=== PATIENT | female | born 1980 | race American Indian/Alaskan Native ===

== ENCOUNTER 2017-04-26 23:14 | Inpatient (IN) | payer OTHER ==
[2017-04-27] MEDS ORDERED: ASPIRIN PO ONE (00:19)
[2017-04-27 01:05] LABS: Basophils % (Auto) 0.3 % (0.0-1.8); Eosinophils # (Auto) 0.2 K/mm3 (0.0-0.4); Eosinophils % (Auto) 1.3 % (0.0-4.3); Hematocrit 32.8 % (30.3-42.9); Hemoglobin 10.4 gm/dl (10.1-14.3); Lymphocytes % (Auto) 7.8 % (13.4-35.0); Mean Corpuscular HGB Conc 32 % (30-34); Mean Corpuscular Volume 80 fl (79-97); Monocytes # (Auto) 0.7 K/mm3 (0.0-0.8); Monocytes % (Auto) 5.5 % (0.0-7.3); Platelet Count 618 K/mm3 (140-440); Red Blood Count 4.11 M/mm3 (3.65-5.03); Red Cell Distribution Width 17.3 % (13.2-15.2)
[2017-04-27 01:06] LABS: Mean Corpuscular Hemoglobin 25 pg (28-32)
[2017-04-27 01:43] LABS: BUN/Creatinine Ratio 11; Blood Urea Nitrogen 22 mg/dL (7-17); Calcium 9.2 mg/dL (8.4-10.2); Hemolysis Index 39
[2017-04-27] MEDS ORDERED: D50W (25GM) Syringe IV PRN (08:28)
--- NOTE | 2017-04-27 08:38 | Emergency Department Report ---
HPI - General Chief Complaint: Chest Pain Time Seen by Provider: 04/27/17 08:16 - HPI HPI: Room 8 The patient is a 36-year-old female presenting with a chief complaint of chest pain and right lower extremity swelling. The patient states last week she noticed pain and swelling in her right lower extremity. The patient states she has swelling with her "neuropathy" intermittently. The patient states for the past 4 days she has had sharp sticking pain in the anterior chest associated with pleurisy. The patient does admit to shortness of breath, nausea/vomiting and diaphoresis with her chest pain. The patient drove 4 hours from [facility] to [place] approximately 3 weeks ago. The patient states she had a stress test several years ago but has never had a cardiac catheterization Location: Chest, right lower extremity Duration: [See above] Quality: Sharp, sticking Severity: Moderate Modifying factors: [see above] Context: [see above] Mode of transportation: Unknown ED Past Medical Hx - Past Medical History Hx Hypertension: Yes Hx Diabetes: Yes Hx Psychiatric Treatment: Yes (Anxiety) Additional medical history: Neuropathy - Surgical History Hx Appendectomy: Yes Additional Surgical History: Abdominal Surgery, Left Eye Surgery - Family History Family history: no significant - Social History Smoking Status: Never Smoker Substance Use Type: None (denies illicit drug use) - Medications Home Medications: Home Medications Medication Instructions Recorded Confirmed Last Taken Type Chlorthalidone 25 mg PO DAILY 04/27/17 04/27/17 Unknown History Cyclobenzaprine 10 mg PO TID 04/27/17 04/27/17 Unknown History HCTZ 12.5 mg PO DAILY 04/27/17 04/27/17 Unknown History Lantus 40 units SQ HS 04/27/17 04/27/17 Unknown History Sodium Bicarbonate 650 mg PO TID 04/27/17 04/27/17 Unknown History ED Review of Systems ROS: Stated complaint: CHEST PAIN,RIGHT LEG PAIN Other details as noted in HPI Constitutional: diaphoresis Respiratory: shortness of breath, other (pleurisy) Cardiovascular: chest pain Gastrointestinal: nausea, vomiting Skin: denies: rash, lesions Physical Exam - Physical Exam Vital Signs: Vital Signs 04/26/17 04/27/17 23:59 00:12 Temperature 99.1 F 99.1 F Pulse Rate 119 H 119 H Respiratory 18 20 Rate Blood Pressure 163/100 167/100 O2 Sat by Pulse 100 99 Oximetry Physical Exam: GENERAL: The patient is well-developed well-nourished female lying on stretcher not appearing to be in acute distress. [] HEENT: Normocephalic. Atraumatic. Extraocular motions are intact. Patient has moist mucous membranes. NECK: Supple. Trachea midline CHEST/LUNGS: Clear to auscultation. There is no respiratory distress noted. HEART/CARDIOVASCULAR: Regular. There is no tachycardia. There is no gallop rub or murmur. ABDOMEN: Abdomen is soft, nontender. Patient has normal bowel sounds. There is no abdominal distention. SKIN: There is a skin fissure to the lateral right heel. No evidence of erythema or discharge. There is no diaphoresis. NEURO: The patient is awake, alert, and oriented. The patient is cooperative. The patient has normal speech and gait. MUSCULOSKELETAL: There is no evidence of acute injury. ED Course Vital Signs 04/26/17 04/27/17 23:59 00:12 Temperature 99.1 F 99.1 F Pulse Rate 119 H 119 H Respiratory 18 20 Rate Blood Pressure 163/100 167/100 O2 Sat by Pulse 100 99 Oximetry ED Medical Decision Making - Lab Data Result diagrams: 04/27/17 00:43 04/27/17 10:45 Laboratory Tests 04/27/17 04/27/17 04/27/17 00:43 00:43 00:43 WBC 13.3 H RBC 4.11 Hgb 10.4 Hct 32.8 MCV 80 MCH 25 L MCHC 32 RDW 17.3 H Plt Count 618 H Lymph % (Auto) 7.8 L [place] % (Auto) 5.5 Eos % (Auto) 1.3 Baso % (Auto) 0.3 Lymph # 1.0 L Lamb # 0.7 Eos # 0.2 Baso # 0.0 Seg Neutrophils % 85.1 H Seg Neutrophils # 11.3 H VBG pH Sodium 130 L Potassium 4.2 Chloride 93.3 L Carbon Dioxide 17 L Anion Gap 24 BUN 22 H Creatinine 2.0 H Estimated GFR 28 BUN/Creatinine Ratio 11 Glucose 419 H Calcium 9.2 Troponin T < 0.010 HCG, Qual Negative 04/27/17 00:43 WBC RBC Hgb Hct MCV MCH MCHC RDW Plt Count Lymph % (Auto) [place] % (Auto) Eos % (Auto) Baso % (Auto) Lymph # Lamb # Eos # Baso # Seg Neutrophils % Seg Neutrophils # VBG pH 7.292 L Sodium Potassium Chloride Carbon Dioxide Anion Gap BUN Creatinine Estimated GFR BUN/Creatinine Ratio Glucose Calcium Troponin T HCG, Qual - EKG Data -: EKG Interpreted by Me EKG shows normal: sinus rhythm Rate: tachycardia (123 bpm) - EKG Data When compared to previous EKG there are: previous EKG unavailable Interpretation: other (no ischemic changes seen) - Radiology Data Radiology results: report reviewed (right lower extremity Doppler, VQ scan), image reviewed (chest x-ray, VQ scan) interpreted by me: chest x-ray-no focal infiltrates, no pneumothorax JAVY MARTINI [facility] 1980 [id number] 04/27/17 09:09 - Radiology Dept. [facility]: [id number] : 1980 Patient Age: 36 RLE VENOUS DUPLEX COMPLETED. VAS LAB PRELIMINARY REPORT; NO EVIDENCE OF DVT/SVT NOTED IN VESSELS/SEGMENTS EXAMINED. PHYSICIANS REPORT TO FOLLOW...(RSK) Initialized on 04/27/17 09:09 - END OF NOTE VENTILATION/PERFUSION LUNG SCAN: 04/27/17 CLINICAL: Chest pain and shortness of breath. TECHNIQUE: 15.0 mCi of xenon-133 was administered by aerosol and 5.0 mCi of technetium 99m MAA was administered intravenously. Comparison is made to a same day chest x-ray. FINDINGS: Inhalation of Xenon gas demonstrates a normal distribution of the activity throughout both lungs. The wash out phases show no significant retention of activity. After injection of Technetium 99m macroaggregated albumin gamma camera imaging of the lungs in multiple projections demonstrates normal pulmonary contours with a relatively homogeneous distribution of activity. No suspicious focal areas of perfusion deficiency are identified. IMPRESSION: Low probability for pulmonary embolus. Transcribed By: REF Dictated By: TWIN KABA MD Electronically Authenticated By: TWIN KABA MD Signed Date/Time: 04/27/171308 DD/ 08 TD/TT: 04/27/171308 - Differential Diagnosis ACS, PE, DVT, DKA Critical care attestation.: If time is entered above; I have spent that time in minutes in the direct care of this critically ill patient, excluding procedure time. ED Disposition Clinical Impression: Chest pain, DKA (diabetic ketoacidoses), Renal insufficiency Disposition: 09 OP ADMIT IP TO THIS HOSP Is pt being admited?: Yes Does the pt Need Aspirin: No (renal sufficiency) Condition: Stable Instructions: Chest Pain (ED), Diabetic Ketoacidosis (ED) Referrals: PRIMARY CARE,MD [Primary Care Provider] - 3-5 Days Time of Disposition: 13:31 (Hospitalist notified (Dr Colon))
[2017-04-27] MEDS ORDERED: ZOFRAN IV ONE (08:39)
[2017-04-27] MEDS ORDERED: MORPHINE IV ONE (08:39)
[2017-04-27] MEDS ORDERED: NITRO-BID 2% TP ONE (08:39)
[2017-04-27] MEDS ORDERED: PLAVIX PO ONE (08:39)
[2017-04-27] MEDS ORDERED: NovoLIN R 100 UNITS in NACL 0.9% 99 ML IV SCH (09:00)
--- NOTE | 2017-04-27 09:30 | XRay Report ---
AP CHEST: HISTORY: chest pain AP view of the chest demonstrates a normal mediastinal and cardiac contour with clear lungs and normal bony and soft tissue structures. IMPRESSION: Unremarkable AP chest.
[2017-04-27] MEDS ORDERED: ATIVAN IV PRN (11:05)
[2017-04-27 11:39] LABS: Calcium 9.3 mg/dL (8.4-10.2)
[2017-04-27 12:50] LABS: Bacteria,Urine 1+ /HPF (Negative); Mucus,Urine FEW /HPF
[2017-04-27] MEDS ORDERED: D5W/0.45% NACL/KCL 20 MEQ 20 MEQ/1,000 ML BAG IV ONE (13:10)
[2017-04-27 13:15] LABS: Bilirubin,Urine NEG (Negative); Blood,Urine LG (Negative); Color,Urine Yellow (Yellow); Urobilinogen,Urine < 2.0 mg/dL (<2.0)
--- NOTE | 2017-04-27 13:19 | Nuclear Medicine Report ---
VENTILATION/PERFUSION LUNG SCAN: 04/27/17 CLINICAL: Chest pain and shortness of breath. TECHNIQUE: 15.0 mCi of xenon-133 was administered by aerosol and 5.0 mCi of technetium 99m MAA was administered intravenously. Comparison is made to a same day chest x-ray. FINDINGS: Inhalation of Xenon gas demonstrates a normal distribution of the activity throughout both lungs. The wash out phases show no significant retention of activity. After injection of Technetium 99m macroaggregated albumin gamma camera imaging of the lungs in multiple projections demonstrates normal pulmonary contours with a relatively homogeneous distribution of activity. No suspicious focal areas of perfusion deficiency are identified. IMPRESSION: Low probability for pulmonary embolus.
[2017-04-27 14:45] LABS: Calcium 9.2 mg/dL (8.4-10.2)
[2017-04-27] MEDS ORDERED: ZOFRAN ONE (16:42)
[2017-04-27 16:53] LABS: Calcium 9.3 mg/dL (8.4-10.2)
[2017-04-27] MEDS ORDERED: ZOFRAN IM ONE (19:01)
[2017-04-27] MEDS ORDERED: CYCLOBENZAPRINE 10 MG PO SCH (20:00)
[2017-04-27] MEDS: FLEXERIL PO SCH (21:49)
[2017-04-28 01:14] LABS: Calcium 8.9 mg/dL (8.4-10.2)
--- NOTE | 2017-04-28 06:45 | History and Physical Report ---
History of Present Illness Date of admission: 04/27/17 17:26 Chief complaint: I just feel sick History of present illness: 36 YO Female with DM, HTN, Anxiety, Neuropathy presents to ED for evaluation. Pt states that she has felt sick for the past 3 days with persistent symptoms during the same time frame. Pt acknowledges noncompliance with her medication. Pt acknowledges polydipsia, polyuria, nausea, vomiting, chest discomfort associated with deep breathing as well as lower extremity swelling and feeling anxious. Pt denies fever, chills, palpitations, Syncope, trauma, recent ill contacts, productive cough, recent ill contacts. Pt seen and evaluated in ED and found to have DKA complicated by Acute renal failure. Pt admitted to ICU and initiated on DKA protocol. Past History Past Medical History: diabetes, hypertension Past Surgical History: bowel surgery Social history: single. denies: smoking, alcohol abuse, prescription drug abuse Family history: hypertension Medications and Allergies Allergies Allergy/AdvReac Type Severity Reaction Status Date / Time lisinopril Allergy Swelling Verified 04/27/17 00:18 Penicillins Allergy Swelling Verified 04/27/17 00:18 Home Medications Medication Instructions Recorded Confirmed Last Taken Type Chlorthalidone 25 mg PO DAILY 04/27/17 04/27/17 Unknown History Cyclobenzaprine 10 mg PO TID 04/27/17 04/27/17 Unknown History HCTZ 12.5 mg PO DAILY 04/27/17 04/27/17 Unknown History Lantus 40 units SQ HS 04/27/17 04/27/17 Unknown History Sodium Bicarbonate 650 mg PO TID 04/27/17 04/27/17 Unknown History Active Meds: Active Medications Chlorthalidone (Thalitone) 25 mg PO QDAY [facility] Cyclobenzaprine HCl (Flexeril) 10 mg PO TID [facility] Last Admin: 04/27/17 21:49 Dose: 10 mg Dextrose (D50w (25gm) Syringe) 0 ml IV ONCE PRN PRN Reason: Hypoglycemia Last Admin: 04/27/17 22:23 Dose: 20 ml Hydrochlorothiazide (Hctz) 12.5 mg PO QDAY [facility] Insulin Human Regular 100 (units/ Sodium Chloride) 100 mls @ 7 mls/hr IV TITR [facility]; Protocol Last Titration: 04/28/17 06:23 Dose: 0 units/hr, 0 mls/hr Lorazepam (Ativan) 1 mg IV ONCE PRN PRN Reason: Anxiety Last Admin: 04/27/17 11:20 Dose: 1 mg Review of Systems Constitutional: no weight loss, no weight gain, no fever, no chills Ears, nose, mouth and throat: no ear pain, no ear discharge, no tinnitis, no decreased hearing, no nose pain, no nasal congestion Breasts: no change in shape, no swelling, no mass Cardiovascular: no chest pain, no orthopnea, no palpitations Respiratory: no cough, no cough with sputum, no excessive sputum, no hemoptysis , no shortness of breath Gastrointestinal: nausea, no vomiting, no constipation Genitourinary Female: no pelvic pain, no flank pain, no menorrhagia, no dysuria Rectal: no pain, no incontinence, no bleeding Musculoskeletal: no neck stiffness, no neck pain, no shooting arm pain, no arm numbness/tingling, no low back pain, no shooting leg pain Integumentary: no rash, no pruritis, no redness, no sores, no wounds, no jaundice Neurological: no transient paralysis, no paralysis, no weakness, no numbness, no tingling, no seizures, no syncope, no tremors Psychiatric: anxiety, no memory loss, no change in sleep habits, no sleep disturbances, no insomnia, no hypersomnia Endocrine: polyphagia, polydipsia, polyuria, nocturia, no cold intolerance, no heat intolerance Hematologic/Lymphatic: no easy bruising, no easy bleeding, no lymphadenopathy, no lymphedema Allergic/Immunologic: no urticaria, no allergic rhinitis, no wheezing, no anaphylaxis, no angioedema Exam - Constitutional Vitals: Temp Pulse Resp BP Pulse Ox 98 F 98 H 10 L 155/101 100 04/28/17 03:55 04/28/17 05:46 04/28/17 05:46 04/28/17 05:46 04/28/17 05:46 General appearance: Present: mild distress - EENT Eyes: Present: PERRL ENT: hearing intact, clear oral mucosa - Neck Neck: Present: supple, normal ROM - Respiratory Respiratory effort: normal Respiratory: bilateral: CTA - Cardiovascular Heart Sounds: Present: S1 & S2. Absent: rub, click - Extremities Extremities: pulses symmetrical, No edema Peripheral Pulses: within normal limits - Abdominal General gastrointestinal: Present: soft, non-tender, non-distended, normal bowel sounds Female genitourinary: Present: normal - Integumentary Integumentary: Present: clear, dry, clammy, decreased turgor - Musculoskeletal Musculoskeletal: gait normal, strength equal bilaterally - Psychiatric Psychiatric: intact judgment & insight, agitated - Neurologic Neurologic: CNII-XII intact, moves all extremities Results - Labs CBC & Chem 7: 04/27/17 00:43 04/28/17 00:33 Labs: Abnormal lab results 04/27/17 04/27/17 04/27/17 Range/Units 00:33 10:45 10:53 Sodium 131 L (137-145) mmol/L Chloride 91.1 L (98-107) mmol/L Carbon Dioxide 20 L (22-30) mmol/L BUN 23 H (7-17) mg/dL Creatinine 2.0 H (0.7-1.2) mg/dL Glucose 359 H (65-100) mg/dL POC Glucose 417 H 397 H (70-105) 04/27/17 04/27/17 04/27/17 Range/Units 12:00 13:05 14:05 Sodium (137-145) mmol/L Chloride (98-107) mmol/L Carbon Dioxide (22-30) mmol/L BUN (7-17) mg/dL Creatinine (0.7-1.2) mg/dL Glucose (65-100) mg/dL POC Glucose 291 H 253 H 201 H (70-105) 04/27/17 04/27/17 04/27/17 Range/Units 14:19 15:28 16:27 Sodium 133 L 132 L (137-145) mmol/L Chloride 94.0 L 95.3 L (98-107) mmol/L Carbon Dioxide 19 L 17 L (22-30) mmol/L BUN 24 H 24 H (7-17) mg/dL Creatinine 2.1 H 2.0 H (0.7-1.2) mg/dL Glucose 194 H 168 H (65-100) mg/dL POC Glucose 124 H (70-105) 04/27/17 04/27/17 04/27/17 Range/Units 17:17 18:38 22:13 Sodium (137-145) mmol/L Chloride (98-107) mmol/L Carbon Dioxide (22-30) mmol/L BUN (7-17) mg/dL Creatinine (0.7-1.2) mg/dL Glucose (65-100) mg/dL POC Glucose 163 H 151 H 53 L (70-105) 04/27/17 04/28/17 04/28/17 Range/Units 23:09 00:33 01:27 Sodium 133 L (137-145) mmol/L Chloride 95.5 L (98-107) mmol/L Carbon Dioxide 20 L (22-30) mmol/L BUN 23 H (7-17) mg/dL Creatinine 1.9 H (0.7-1.2) mg/dL Glucose 136 H (65-100) mg/dL POC Glucose 143 H 145 H (70-105) 04/28/17 Range/Units 03:05 Sodium (137-145) mmol/L Chloride (98-107) mmol/L Carbon Dioxide (22-30) mmol/L BUN (7-17) mg/dL Creatinine (0.7-1.2) mg/dL Glucose (65-100) mg/dL POC Glucose 115 H (70-105) Assessment and Plan - Patient Problems (1) DKA (diabetic ketoacidoses) Current Visit: Yes Status: Acute Qualifiers: Diabetes mellitus type: type 1 Plan to address problem: DKa Protocol: Insulin drip, serial bmp, monitor anion gap, IVF resuscitation therapy, monitor uop q shift, monitor serum potassium levels The high probability of a clinically significant, sudden or life threatening deterioration of the [endocrine, renal, neuro] system(s) required my full and direct attention, intervention and personal management. The aggregate critical care time was [65] minutes. This time is in addition to time spent performing reported procedures but includes the following: [x] Data Review and interpretation [x] Patient assessment and monitoring of vital signs [x] Documentation [x] Medication orders and management (2) ARF (acute renal failure) Current Visit: Yes Status: Acute Qualifiers: Acute renal failure type: with acute tubular necrosis Qualified Code(s): N17.0 - Acute kidney failure with tubular necrosis Plan to address problem: IVF resuscitation therapy, monitor uop q shift, serial creatnine levels. (3) Metabolic acidosis Current Visit: Yes Status: Acute Plan to address problem: IVF resuscitation, serial bmp, treat dka (4) DVT prophylaxis Current Visit: Yes Status: Acute
[2017-04-28] MEDS ORDERED: D5W/0.45% NACL/KCL 20 MEQ 20 MEQ/1,000 ML BAG IV SCH (07:00)
[2017-04-28] MEDS ORDERED: APRESOLINE IV PRN (07:54)
[2017-04-28] MEDS: FLEXERIL PO SCH ×3 (08:30→22:49)
[2017-04-28] MEDS: NORVASC PO SCH (09:30)
[2017-04-28] MEDS ORDERED: HCTZ 12.5 MG PO SCH (10:00)
[2017-04-28] MEDS ORDERED: CHLORTHALIDONE 25 MG PO SCH (10:00)
[2017-04-28] MEDS ORDERED: THALITONE PO SCH (10:00)
[2017-04-28] MEDS ORDERED: HCTZ PO SCH (10:00)
[2017-04-28] MEDS ORDERED: D50W (25GM) Syringe IV PRN (10:28)
[2017-04-28] MEDS ORDERED: NACL 0.45% 1000 ML 1,000 ML IV ONE (11:20)
[2017-04-28] MEDS: NOVOLOG SUB-Q SCH ×3 (11:49→22:50)
[2017-04-28] MEDS ORDERED: NACL 0.45% 1000 ML 1,000 ML IV SCH (12:00)
--- NOTE | 2017-04-28 17:11 | Progress Note ---
Assessment and Plan Assessment and plan: DKA - Patient was managed according to DK protocol and currently DKA resolved. Diabetes mellitus with hyperglycemia - Sliding scale insulin, continue home dose of insulin HARIKA - Patient is on IV fluid DVT prophylaxis - Heparin Disposition - Positive discharge tomorrow. History Interval history: Patient was seen and evaluated this morning, patient's abdominal pain and chest pain subsided. Patient didn't have any difficulty of breathing. Hospitalist Physical - Physical exam Narrative exam: Not in cardiopulmonary distress. The patient appeared well nourished and normally developed. BMI 66.7 is wrong Vital signs as documented. Head exam is unremarkable. No scleral icterus . Neck is without jugular venous distension, thyromegaly, or carotid bruits. Lungs are clear to auscultation. Cardiac exam reveals regular rate and Rhythm. First and second heart sounds normal. No murmurs, rubs or gallops. Abdominal exam reveals normal bowel sounds, no masses, no organomegaly and no aortic enlargement. Extremities are nonedematous and both femoral and pedal pulses are normal. 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 No focal weakness. - Constitutional Vitals: Temp Pulse Resp BP Pulse Ox 99.3 F 118 H 16 115/74 99 04/28/17 14:52 04/28/17 14:52 04/28/17 14:52 04/28/17 14:52 04/28/17 14:52 General appearance: Present: mild distress Results - Labs CBC & Chem 7: 04/27/17 00:43 04/28/17 09:17 Labs: Laboratory Last Values WBC 13.3 K/mm3 (4.5-11.0) H 04/27/17 00:43 RBC 4.11 M/mm3 (3.65-5.03) 04/27/17 00:43 Hgb 10.4 gm/dl (10.1-14.3) 04/27/17 00:43 Hct 32.8 % (30.3-42.9) 04/27/17 00:43 MCV 80 fl (79-97) 04/27/17 00:43 MCH 25 pg (28-32) L 04/27/17 00:43 MCHC 32 % (30-34) 04/27/17 00:43 RDW 17.3 % (13.2-15.2) H 04/27/17 00:43 Plt Count 618 K/mm3 (140-440) H 04/27/17 00:43 Lymph % (Auto) 7.8 % (13.4-35.0) L 04/27/17 00:43 [place] % (Auto) 5.5 % (0.0-7.3) 04/27/17 00:43 Eos % (Auto) 1.3 % (0.0-4.3) 04/27/17 00:43 Baso % (Auto) 0.3 % (0.0-1.8) 04/27/17 00:43 Lymph # 1.0 K/mm3 (1.2-5.4) L 04/27/17 00:43 [place] # 0.7 K/mm3 (0.0-0.8) 04/27/17 00:43 Eos # 0.2 K/mm3 (0.0-0.4) 04/27/17 00:43 Baso # 0.0 K/mm3 (0.0-0.1) 04/27/17 00:43 Seg Neutrophils % 85.1 % (40.0-70.0) H 04/27/17 00:43 Seg Neutrophils # 11.3 K/mm3 (1.8-7.7) H 04/27/17 00:43 D-Dimer 971.67 ng/mlDDU (0-234) H 04/28/17 07:25 VBG pH 7.292 (7.320-7.420) L 04/27/17 00:43 Sodium 135 mmol/L (137-145) L 04/28/17 09:17 Potassium 3.7 mmol/L (3.6-5.0) 04/28/17 09:17 Chloride 98.6 mmol/L (98-107) 04/28/17 09:17 Carbon Dioxide 19 mmol/L (22-30) L 04/28/17 09:17 Anion Gap 21 mmol/L 04/28/17 09:17 BUN 21 mg/dL (7-17) H 04/28/17 09:17 Creatinine 1.9 mg/dL (0.7-1.2) H 04/28/17 09:17 Estimated GFR 36 ml/min 04/28/17 09:17 BUN/Creatinine Ratio 11 % 04/28/17 09:17 Glucose 119 mg/dL (65-100) H 04/28/17 09:17 POC Glucose 137 (70-105) H 04/28/17 11:51 Calcium 9.0 mg/dL (8.4-10.2) 04/28/17 09:17 Phosphorus 4.10 mg/dL (2.5-4.5) 04/27/17 10:45 Magnesium 1.90 mg/dL (1.7-2.3) 04/27/17 10:45 Troponin T 0.012 ng/mL (0.00-0.029) 04/27/17 10:45 HCG, Qual Negative (Negative) 04/27/17 00:43 Urine Color Yellow (Yellow) 04/27/17 11:44 Urine Turbidity Clear (Clear) 04/27/17 11:44 Urine pH 5.0 (5.0-7.0) 04/27/17 11:44 Ur Specific [place] 1.016 (1.003-1.030) 04/27/17 11:44 Urine Protein 100 mg/dl mg/dL (Negative) 04/27/17 11:44 Urine Glucose (UA) >=500 mg/dL (Negative) 04/27/17 11:44 Urine Ketones Neg mg/dL (Negative) 04/27/17 11:44 Urine Blood Lg (Negative) 04/27/17 11:44 Urine Nitrite Neg (Negative) 04/27/17 11:44 Ur Reducing Substances Not Reportable 04/27/17 11:44 Urine Bilirubin Neg (Negative) 04/27/17 11:44 Urine Ictotest Not Reportable 04/27/17 11:44 Urine Urobilinogen < 2.0 mg/dL (<2.0) 04/27/17 11:44 Ur Leukocyte Esterase Neg (Negative) 04/27/17 11:44 Urine WBC (Auto) 2.0 /HPF (0.0-6.0) 04/27/17 11:44 Urine RBC (Auto) 3.0 /HPF (0.0-6.0) 04/27/17 11:44 U Epithel Cells (Auto) 2.0 /HPF (0-13.0) 04/27/17 11:44 Urine Bacteria (Auto) 1+ /HPF (Negative) 04/27/17 11:44 Urine Mucus Few /HPF 04/27/17 11:44
[2017-04-28] MEDS ORDERED: NACL 0.45% 1000 ML 2,000 ML IV SCH (17:12)
[2017-04-28] MEDS ORDERED: LANTUS 40 UNIT SQ SCH (22:00)
[2017-04-28] MEDS ORDERED: LEVEMIR SUB-Q SCH (22:00)
[2017-04-29] MEDS ORDERED: TYLENOL PO PRN (05:32)
[2017-04-29] MEDS: NOVOLOG SUB-Q SCH ×2 (07:33→12:20)
[2017-04-29 07:44] LABS: Calcium 8.9 mg/dL (8.4-10.2)
[2017-04-29 08:11] LABS: Basophils % (Auto) 0.3 % (0.0-1.8); Eosinophils # (Auto) 0.3 K/mm3 (0.0-0.4); Eosinophils % (Auto) 2.6 % (0.0-4.3); Hematocrit 27.7 % (30.3-42.9); Hemoglobin 8.8 gm/dl (10.1-14.3); Lymphocytes # (Auto) 1.5 K/mm3 (1.2-5.4); Mean Corpuscular HGB Conc 32 % (30-34); Mean Corpuscular Volume 78 fl (79-97); Monocytes # (Auto) 0.9 K/mm3 (0.0-0.8); Monocytes % (Auto) 6.9 % (0.0-7.3); Platelet Count 661 K/mm3 (140-440); Red Blood Count 3.53 M/mm3 (3.65-5.03)
[2017-04-29 08:17] LABS: Mean Corpuscular Hemoglobin 25 pg (28-32)
[2017-04-29] MEDS: NORVASC PO SCH (10:46)
[2017-04-29] MEDS: FLEXERIL PO SCH (10:46)
[2017-04-29 10:47] VITALS: BP 150/78
--- NOTE | 2017-04-29 10:51 | Discharge Summary ---
Providers - Providers Date of Admission: 04/27/17 17:26 Date of discharge: 04/29/17 Attending physician: LAUREL GRANADOS MD Primary care physician: GREGORIO MCKENNA MD Hospitalization Reason for admission: DKA, Acute reanl failure Condition: Stable Time spent for discharge: 34 minutes - Discharge Diagnoses (1) ARF (acute renal failure) Status: Acute Qualifiers: Acute renal failure type: with acute tubular necrosis Qualified Code(s): N17.0 - Acute kidney failure with tubular necrosis (2) Chest pain Status: Acute (3) DKA (diabetic ketoacidoses) Status: Acute Qualifiers: Diabetes mellitus type: type 1 (4) Metabolic acidosis Status: Acute (5) Renal insufficiency Status: Acute Core Measure Documentation - Palliative Care Palliative Care/ Comfort Measures: Not Applicable - Core Measures Any of the following diagnoses?: none Exam - Physical Exam Narrative exam: Not in cardiopulmonary distress. The patient appeared well nourished and normally developed. BMI 66.7 is wrong Vital signs as documented. Head exam is unremarkable. No scleral icterus . Neck is without jugular venous distension, thyromegaly, or carotid bruits. Lungs are clear to auscultation. Cardiac exam reveals regular rate and Rhythm. First and second heart sounds normal. No murmurs, rubs or gallops. Abdominal exam reveals normal bowel sounds, no masses, no organomegaly and no aortic enlargement. Extremities are nonedematous and both femoral and pedal pulses are normal. 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 No focal weakness. - Constitutional Vitals: Temp Pulse Resp BP Pulse Ox 98.5 F 102 H 18 150/78 100 04/29/17 07:54 04/29/17 07:54 04/29/17 07:54 04/29/17 10:46 04/29/17 08:50 Plan Activity: no restrictions Weight Bearing Status: Full Weight Bearing Diet: diabetic Follow up with: GREGORIO MCKENNA MD [Primary Care Provider] - 7 Days Prescriptions: amLODIPine [Norvasc] 10 mg PO QDAY #10 tablet hydrALAZINE [Apresoline TAB] 50 mg PO TID #90 tab
== END 2017-04-29 13:30 | disposition home or self-care (01) | DRG 682 ==
LOC: EDBD → ED 04-27 03:18 → CC1 04-27 17:26 → 3A 04-28 10:51
PROVIDERS: ADMIT Internal Medicine; ATTEND Internal Medicine
DX: N17.9 Acute kidney failure, unspecified (principal); E10.10 Type 1 diabetes mellitus with ketoacidosis without coma; R07.9 Chest pain, unspecified; F41.9 Anxiety disorder, unspecified; I10 Essential (primary) hypertension; E10.40 Type 1 diabetes mellitus with diabetic neuropathy, unspecified; Z79.899 Other long term (current) drug therapy; Z82.49 Family history of ischemic heart disease and other diseases of the circulatory system; Z88.0 Allergy status to penicillin
CPT/HCPCS: 36415; 71045; 78582; 80048; 81001; 82805; 82962; 83735; 84100; 84484; 84703; 85025; 85379; 93005; 93010; 96374; 96375; A9540; A9558; J1815; J1818; J2060; J2270; J2405

== ENCOUNTER 2017-05-11 15:15 | Emergency (ER) | payer SELFPAY ==
[2017-05-11 15:32] VITALS: BP 153/97
[2017-05-11] MEDS ORDERED: TYLENOL PO ONE (17:57)
[2017-05-11] MEDS ORDERED: KEFLEX PO ONE (17:57)
--- NOTE | 2017-05-11 18:17 | Emergency Department Report ---
Chief Complaint: Laceration/Recheck/Suture Stated Complaint: CUT ON R ANKLE Time Seen by Provider: 05/11/17 17:03 - HPI History of Present Illness: The patient is 36-year-old female with a history of diabetes, whom presents for evaluation of wound to the right heel. The patient reports 2 weeks of wound to the heel of the right foot associated with pain, burning in quality, mild in severity. The patient denies fever, penetrating trauma to the heel, purulent drainage or discharge, loss of sensation or motor function in the rt foot or toes. - Exam Vital Signs: Vital Signs 05/11/17 15:28 Temperature 98.5 F Pulse Rate 118 H Respiratory 18 Rate Blood Pressure 153/97 O2 Sat by Pulse 98 Oximetry MSE screening note: Focused history and physical exam performed. Due to findings the following was ordered: ED Disposition for MSE Condition: Stable Referrals: PRIMARY CARE, [Primary Care Provider] - 3-5 Days
--- NOTE | 2017-05-11 19:18 | Emergency Department Report ---
- General Chief Complaint: Laceration/Recheck/Suture Stated Complaint: CUT ON R ANKLE Time Seen by Provider: 05/11/17 17:03 Source: patient Mode of arrival: Ambulatory Limitations: No Limitations - History of Present Illness Initial Comments: The patient is 36-year-old female with a history of diabetes, whom presents for evaluation of wound to the right heel. The patient reports 2 weeks of wound to the heel of the right foot associated with pain, burning in quality, mild in severity. The patient denies fever, penetrating trauma to the heel, purulent drainage or discharge, loss of sensation or motor function in the rt foot or toes. - Related Data Home Medications Medication Instructions Recorded Confirmed Last Taken Cyclobenzaprine 10 mg PO TID 04/27/17 04/27/17 Unknown Lantus 40 units SQ HS 04/27/17 04/27/17 Unknown Sodium Bicarbonate 650 mg PO TID 04/27/17 04/27/17 Unknown Previous Rx's Medication Instructions Recorded Last Taken Type amLODIPine [Norvasc] 10 mg PO QDAY #10 tablet 04/29/17 Unknown Rx hydrALAZINE [Apresoline TAB] 50 mg PO TID #90 tab 04/29/17 Unknown Rx Allergies Allergy/AdvReac Type Severity Reaction Status Date / Time lisinopril Allergy Swelling Verified 04/27/17 00:18 Penicillins Allergy Swelling Verified 04/27/17 00:18 ED Review of Systems ROS: Stated complaint: CUT ON R ANKLE Other details as noted in HPI ED Past Medical Hx - Past Medical History Hx Hypertension: Yes Hx Diabetes: Yes Hx Psychiatric Treatment: Yes (Anxiety) Additional medical history: Neuropathy - Surgical History Hx Appendectomy: Yes Additional Surgical History: Abdominal Surgery, Left Eye Surgery - Social History Smoking Status: Never Smoker Substance Use Type: None - Medications Home Medications: Home Medications Medication Instructions Recorded Confirmed Last Taken Type Cyclobenzaprine 10 mg PO TID 04/27/17 04/27/17 Unknown History Lantus 40 units SQ HS 04/27/17 04/27/17 Unknown History Sodium Bicarbonate 650 mg PO TID 04/27/17 04/27/17 Unknown History amLODIPine [Norvasc] 10 mg PO QDAY #10 tablet 04/29/17 Unknown Rx hydrALAZINE [Apresoline TAB] 50 mg PO TID #90 tab 04/29/17 Unknown Rx ED Physical Exam - General Limitations: No Limitations ED Course Vital Signs 05/11/17 15:28 Temperature 98.5 F Pulse Rate 118 H Respiratory 18 Rate Blood Pressure 153/97 O2 Sat by Pulse 98 Oximetry Critical care attestation.: If time is entered above; I have spent that time in minutes in the direct care of this critically ill patient, excluding procedure time. ED Disposition Clinical Impression: Foot ulcer due to secondary DM Disposition: DC-01 TO HOME OR SELFCARE Is pt being admited?: No Does the pt Need Aspirin: No Condition: Stable Instructions: Diabetes Mellitus Type 2 in Adults (ED) Referrals: PRIMARY CARE, [Primary Care Provider] - 3-5 Days wound care,clinic [Other] - 3-5 Days Forms: Work/School Release Form(ED)
== END 2017-05-11 19:20 | disposition left against medical advice (07) ==
LOC: ED 15:15
DX: E11.621 Type 2 diabetes mellitus with foot ulcer (principal); E11.40 Type 2 diabetes mellitus with diabetic neuropathy, unspecified; I10 Essential (primary) hypertension; Z88.0 Allergy status to penicillin; Z88.8 Allergy status to other drugs, medicaments and biological substances
CPT/HCPCS: 99282

== ENCOUNTER 2017-06-05 15:26 | Inpatient (IN) | payer OTHER ==
[2017-06-05] MEDS ORDERED: NACL 0.9% 500 ML 500 ML IV ONE (15:55)
[2017-06-05] MEDS ORDERED: TORADOL IV ONE (16:10)
[2017-06-05] MEDS ORDERED: NACL 0.9% 1000 ML IV ONE (16:10)
[2017-06-05] MEDS ORDERED: CLEOCIN 600 MG/50 mL 600 MG/50 ML BAG IV ONE (16:11)
[2017-06-05 16:28] LABS: INR 0.92 (0.87-1.13)
[2017-06-05 16:43] LABS: BUN/Creatinine Ratio 10; Blood Urea Nitrogen 21 mg/dL (7-17); Calcium 9.3 mg/dL (8.4-10.2)
[2017-06-05 16:44] LABS: Alanine Aminotransferase 13 units/L (7-56); Albumin 3.5 g/dL (3.9-5); Hemolysis Index 7
[2017-06-05 16:59] LABS: Hematocrit 25.2 % (30.3-42.9); Hemoglobin 7.7 gm/dl (10.1-14.3); Mean Corpuscular HGB Conc 31 % (30-34); Mean Corpuscular Hemoglobin 24 pg (28-32); Mean Corpuscular Volume 79 fl (79-97); Red Blood Count 3.18 M/mm3 (3.65-5.03)
[2017-06-05] MEDS ORDERED: HumuLIN R IV ONE (16:59)
[2017-06-05 17:00] LABS: Basophils % (Auto) 0.5 % (0.0-1.8); Eosinophils % (Auto) 0.4 % (0.0-4.3); Lymphocytes # (Auto) 1.2 K/mm3 (1.2-5.4); Lymphocytes % (Auto) 5.8 % (13.4-35.0); Monocytes # (Auto) 1.1 K/mm3 (0.0-0.8); Monocytes % (Auto) 5.4 % (0.0-7.3); Platelet Count 530 K/mm3 (140-440); Red Cell Distribution Width 18.9 % (13.2-15.2)
[2017-06-05 17:01] LABS: Basophils # (Auto) 0.1 K/mm3 (0.0-0.1); Eosinophils # (Auto) 0.1 K/mm3 (0.0-0.4)
[2017-06-05] MEDS ORDERED: PROVENTIL IH PRN (17:06)
[2017-06-05] MEDS ORDERED: VANCOMYCIN VIAL IV ONE (17:06)
[2017-06-05] MEDS ORDERED: ZOFRAN IV PRN (17:06)
[2017-06-05] MEDS ORDERED: AZACTAM/NS 2 GM/100 ML 2 GM/100 ML VIAL IV SCH (17:06)
--- NOTE | 2017-06-05 17:06 | History and Physical Report ---
History of Present Illness Chief complaint: My foot is hurting and i have a fever History of present illness: 36 YO Female with DM, HTN, Anxiety, Neuropathy presents to ED for evaluation. Pt states that she has experienced pain and swelling in her right foot for the past week with worsening symptoms over the past 1 day. Pt is unable to bear ramirez on her right foot. Pt also states that she has developed fever and chills over the past day as well. Pt acknowledges noncompliance with her diabetes medication, as well as diabetic diet. Pt acknowledges polydipsia, polyuria, nausea, vomiting, lower extremity swelling. Pt denies CP, palpitations , Syncope, trauma, recent ill contacts, productive cough, recent ill contacts. Pt seen and evaluated in ED and found to have Sepsis secondary to diabetic foot infection complicated by Acute renal failure. Pt admitted to medical floor. Past History Past Medical History: diabetes, hypertension, other (anxiety, neuropathy) Past Surgical History: bowel surgery, Other (Right foot debridement) Social history: single. denies: smoking, alcohol abuse, prescription drug abuse Family history: diabetes, hypertension Medications and Allergies Allergies Allergy/AdvReac Type Severity Reaction Status Date / Time lisinopril Allergy Swelling Verified 04/27/17 00:18 Penicillins Allergy Swelling Verified 04/27/17 00:18 Home Medications Medication Instructions Recorded Confirmed Last Taken Type Cyclobenzaprine 10 mg PO TID 04/27/17 04/27/17 Unknown History Lantus 40 units SQ HS 04/27/17 04/27/17 Unknown History Sodium Bicarbonate 650 mg PO TID 04/27/17 04/27/17 Unknown History amLODIPine [Norvasc] 10 mg PO QDAY #10 tablet 04/29/17 Unknown Rx hydrALAZINE [Apresoline TAB] 50 mg PO TID #90 tab 04/29/17 Unknown Rx Review of Systems Constitutional: fever, no weight loss, no weight gain, no chills Ears, nose, mouth and throat: no ear pain, no ear discharge, no tinnitis, no decreased hearing, no nose pain, no nasal congestion Breasts: no change in shape, no swelling, no mass Cardiovascular: no chest pain, no orthopnea, no palpitations, no rapid/ irregular heart beat, no edema Respiratory: no cough, no cough with sputum, no excessive sputum, no hemoptysis , no shortness of breath Gastrointestinal: no nausea, no vomiting, no diarrhea Genitourinary Female: no pelvic pain, no flank pain, no menorrhagia, no dysuria , no urinary frequency, no urgency Rectal: no pain, no incontinence, no bleeding Musculoskeletal: no neck stiffness, no neck pain, no shooting arm pain, no arm numbness/tingling, no low back pain, no shooting leg pain Integumentary: redness, lesions, no rash, no pruritis, no sores, no wounds Neurological: no head injury, no transient paralysis, no paralysis, no weakness , no numbness, no tingling, no seizures, no syncope Psychiatric: anxiety, no memory loss, no change in sleep habits, no sleep disturbances, no insomnia, no hypersomnia Endocrine: polyphagia, polydipsia, polyuria, nocturia, high blood sugars, no cold intolerance, no heat intolerance Hematologic/Lymphatic: no easy bruising, no easy bleeding, no lymphadenopathy, no lymphedema Allergic/Immunologic: no urticaria, no allergic rhinitis, no wheezing, no persistent infections, no anaphylaxis Exam - Constitutional Vitals: Temp Pulse Resp BP Pulse Ox 100.6 F H 113 H 14 147/85 98 06/05/17 15:46 06/05/17 15:46 06/05/17 15:46 06/05/17 15:46 06/05/17 15:46 General appearance: Present: mild distress - EENT Eyes: Present: PERRL ENT: hearing intact, clear oral mucosa - Neck Neck: Present: supple, normal ROM - Respiratory Respiratory effort: normal Respiratory: bilateral: CTA - Cardiovascular Rhythm: other (tachycardia) Heart Sounds: Present: S1 & S2. Absent: rub, click - Extremities Extremity abnormal: edema, ulceration, erythema, pulses diminished, tenderness Peripheral Pulses: abnormal (capillary refill greater than 3.6 seconds) - Abdominal General gastrointestinal: Present: soft Female genitourinary: Present: normal - Integumentary Integumentary: Present: clear, dry, erythema - Musculoskeletal Musculoskeletal: gait normal, strength equal bilaterally - Psychiatric Psychiatric: appropriate mood/affect, intact judgment & insight - Neurologic Neurologic: CNII-XII intact, moves all extremities Results - Labs CBC & Chem 7: 06/05/17 16:00 06/05/17 16:11 Labs: Abnormal lab results 04/07/18 04/07/18 Range/Units 16:00 16:11 WBC 19.8 H (4.5-11.0) K/mm3 RBC 3.18 L (3.65-5.03) M/mm3 Hgb 7.7 L (10.1-14.3) gm/dl Hct 25.2 L (30.3-42.9) % MCH 24 L (28-32) pg RDW 18.9 H (13.2-15.2) % Plt Count 530 H (140-440) K/mm3 Lymph % (Auto) 5.8 L (13.4-35.0) % [place] # 1.1 H (0.0-0.8) K/mm3 Seg Neutrophils % 87.9 H (40.0-70.0) % Seg Neutrophils # 17.4 H (1.8-7.7) K/mm3 Sodium 129 L (137-145) mmol/L Chloride 93.4 L (98-107) mmol/L Carbon Dioxide 18 L (22-30) mmol/L BUN 21 H (7-17) mg/dL Creatinine 2.2 H (0.7-1.2) mg/dL Glucose 408 H (65-100) mg/dL Alkaline Phosphatase 165 H (35-129) units/L Albumin 3.5 L (3.9-5) g/dL Assessment and Plan - Patient Problems (1) Sepsis Current Visit: Yes Status: Acute Qualifiers: Sepsis type: sepsis due to unspecified organism Qualified Code(s): A41.9 - Sepsis, unspecified organism Plan to address problem: IV antibiotics, IVF resuscitation, monitor uop q shift, wound cultures, blood cultures, serial lactic acid, (2) Acidosis Current Visit: Yes Status: Acute Plan to address problem: secondary to sepsis, treat sepsis, IVF resuscitation, serial lactic acid levels (3) Diabetic foot infection Current Visit: Yes Status: Acute Plan to address problem: MR CATHLEEN to evaluate for osteomyelitis. Will recheck creatnine and conduct MRI when renal function has normalized. , IV antibiotic therapy, wound care consulted. (4) ARF (acute renal failure) Current Visit: No Status: Acute Qualifiers: Acute renal failure type: with acute tubular necrosis Qualified Code(s): N17.0 - Acute kidney failure with tubular necrosis Plan to address problem: IVF resuscitation, monitor uop q shift, serial bmp to monitor serum creatnine. (5) DVT prophylaxis Current Visit: No Status: Acute Plan to address problem: scd to BLE
--- NOTE | 2017-06-05 17:10 | Emergency Department Report ---
ED General Adult HPI - General Chief complaint: Wound/Laceration Stated complaint: DIABETIC WOUND/FEVER Time Seen by Provider: 06/05/17 16:04 Source: patient Mode of arrival: Wheelchair Limitations: No Limitations - History of Present Illness Initial comments: Patient is a 36-year-old [place] female who is presenting with a worsening wound on her right lateral heel. Patient has had a diabetic foot ulcer that she 's been taking antibiotics for for approximately 2 months. Patient finished her last clindamycin yesterday. Patient week ago was in [place] and had debridement of this wound patient states this morning she developed fevers and chills. Patient denies any nausea vomiting cough headache abdominal pain or chest pain. Patient states the discomfort in the right foot is a 5 out of 10 in severity and aching. Severity scale (0 -10): 5 Consistency: constant Improves with: none Worsens with: none Associated Symptoms: fever/chills, headaches. denies: confusion, chest pain, cough, diaphoresis, loss of appetite, malaise, nausea/vomiting, rash, seizure, shortness of breath, syncope, weakness - Related Data Home Medications Medication Instructions Recorded Confirmed Last Taken Cyclobenzaprine 10 mg PO TID 04/27/17 04/27/17 Unknown Lantus 40 units SQ HS 04/27/17 04/27/17 Unknown Sodium Bicarbonate 650 mg PO TID 04/27/17 04/27/17 Unknown Previous Rx's Medication Instructions Recorded Last Taken Type amLODIPine [Norvasc] 10 mg PO QDAY #10 tablet 04/29/17 Unknown Rx hydrALAZINE [Apresoline TAB] 50 mg PO TID #90 tab 04/29/17 Unknown Rx Allergies Allergy/AdvReac Type Severity Reaction Status Date / Time lisinopril Allergy Swelling Verified 04/27/17 00:18 Penicillins Allergy Swelling Verified 04/27/17 00:18 ED Review of Systems ROS: Stated complaint: DIABETIC WOUND/FEVER Other details as noted in HPI Comment: All other systems reviewed and negative ED Past Medical Hx - Past Medical History Previous Medical History?: Yes Hx Hypertension: Yes Hx Diabetes: Yes Hx Psychiatric Treatment: Yes (Anxiety) Additional medical history: Neuropathy - Surgical History Hx Appendectomy: Yes Additional Surgical History: Abdominal Surgery, Left Eye Surgery - Social History Smoking Status: Never Smoker Substance Use Type: None - Medications Home Medications: Home Medications Medication Instructions Recorded Confirmed Last Taken Type Cyclobenzaprine 10 mg PO TID 04/27/17 04/27/17 Unknown History Lantus 40 units SQ HS 04/27/17 04/27/17 Unknown History Sodium Bicarbonate 650 mg PO TID 04/27/17 04/27/17 Unknown History amLODIPine [Norvasc] 10 mg PO QDAY #10 tablet 04/29/17 Unknown Rx hydrALAZINE [Apresoline TAB] 50 mg PO TID #90 tab 04/29/17 Unknown Rx ED Physical Exam - General Limitations: No Limitations General appearance: alert, in no apparent distress - Head Head exam: Present: atraumatic, normocephalic - Eye Eye exam: Present: normal appearance - ENT ENT exam: Present: mucous membranes moist - Neck Neck exam: Present: normal inspection - Respiratory Respiratory exam: Present: normal lung sounds bilaterally. Absent: respiratory distress, wheezes, rales, rhonchi - Cardiovascular Cardiovascular Exam: Present: normal rhythm, tachycardia. Absent: systolic murmur, diastolic murmur, rubs, gallop - GI/Abdominal GI/Abdominal exam: Present: soft, normal bowel sounds - Extremities Exam Extremities exam: Present: tenderness (patient's right lateral heel exhibits a dime-sized necrotic foot ulcer that has some surrounding hyperpigmented skin. There is a foul odor.) - Back Exam Back exam: Present: normal inspection - Neurological Exam Neurological exam: Present: alert, oriented X3 - Psychiatric Psychiatric exam: Present: normal affect, normal mood - Skin Skin exam: Present: warm, dry, intact, normal color. Absent: rash ED Course Vital Signs 06/05/17 15:46 Temperature 100.6 F H Pulse Rate 113 H Respiratory 14 Rate Blood Pressure 147/85 O2 Sat by Pulse 98 Oximetry ED Medical Decision Making - Lab Data Result diagrams: 06/05/17 16:00 06/05/17 16:11 Lab Results 06/05/17 06/05/17 06/05/17 Range/Units 16:00 16:00 16:07 WBC 19.8 H (4.5-11.0) K/mm3 RBC 3.18 L (3.65-5.03) M/mm3 Hgb 7.7 L (10.1-14.3) gm/dl Hct 25.2 L (30.3-42.9) % MCV 79 (79-97) fl MCH 24 L (28-32) pg MCHC 31 (30-34) % RDW 18.9 H (13.2-15.2) % Plt Count 530 H (140-440) K/mm3 Lymph % (Auto) 5.8 L (13.4-35.0) % [place] % (Auto) 5.4 (0.0-7.3) % Eos % (Auto) 0.4 (0.0-4.3) % Baso % (Auto) 0.5 (0.0-1.8) % Lymph # 1.2 (1.2-5.4) K/mm3 [place] # 1.1 H (0.0-0.8) K/mm3 Eos # 0.1 (0.0-0.4) K/mm3 Baso # 0.1 (0.0-0.1) K/mm3 Seg Neutrophils % 87.9 H (40.0-70.0) % Seg Neutrophils # 17.4 H (1.8-7.7) K/mm3 PT 12.8 (12.2-14.9) Sec. INR 0.92 (0.87-1.13) VBG pH 7.323 (7.320-7.420) Sodium (137-145) mmol/L Potassium (3.6-5.0) mmol/L Chloride (98-107) mmol/L Carbon Dioxide (22-30) mmol/L Anion Gap mmol/L BUN (7-17) mg/dL Creatinine (0.7-1.2) mg/dL Estimated GFR ml/min BUN/Creatinine Ratio % Glucose (65-100) mg/dL Calcium (8.4-10.2) mg/dL Total Bilirubin (0.1-1.2) mg/dL AST (5-40) units/L ALT (7-56) units/L Alkaline Phosphatase (35-129) units/L Total Protein (6.3-8.2) g/dL Albumin (3.9-5) g/dL Albumin/Globulin Ratio % 06/05/17 Range/Units 16:11 WBC (4.5-11.0) K/mm3 RBC (3.65-5.03) M/mm3 Hgb (10.1-14.3) gm/dl Hct (30.3-42.9) % MCV (79-97) fl MCH (28-32) pg MCHC (30-34) % RDW (13.2-15.2) % Plt Count (140-440) K/mm3 Lymph % (Auto) (13.4-35.0) % [place] % (Auto) (0.0-7.3) % Eos % (Auto) (0.0-4.3) % Baso % (Auto) (0.0-1.8) % Lymph # (1.2-5.4) K/mm3 [place] # (0.0-0.8) K/mm3 Eos # (0.0-0.4) K/mm3 Baso # (0.0-0.1) K/mm3 Seg Neutrophils % (40.0-70.0) % Seg Neutrophils # (1.8-7.7) K/mm3 PT (12.2-14.9) Sec. INR (0.87-1.13) VBG pH (7.320-7.420) Sodium 129 L (137-145) mmol/L Potassium 4.5 (3.6-5.0) mmol/L Chloride 93.4 L (98-107) mmol/L Carbon Dioxide 18 L (22-30) mmol/L Anion Gap 22 mmol/L BUN 21 H (7-17) mg/dL Creatinine 2.2 H (0.7-1.2) mg/dL Estimated GFR 30 ml/min BUN/Creatinine Ratio 10 % Glucose 408 H (65-100) mg/dL Calcium 9.3 (8.4-10.2) mg/dL Total Bilirubin < 0.20 (0.1-1.2) mg/dL AST 14 (5-40) units/L ALT 13 (7-56) units/L Alkaline Phosphatase 165 H (35-129) units/L Total Protein 7.8 (6.3-8.2) g/dL Albumin 3.5 L (3.9-5) g/dL Albumin/Globulin Ratio 0.8 % - Medical Decision Making The patient is a 36-year-old Female who is presenting with a diabetic foot ulcer that appears to be infected. Patient is having fevers and tachycardia. Patient was placed on the sepsis protocol was given IV fluids as well as IV clindamycin. Patient also noted to have elevated blood sugar was given 5 insulin and fluid resuscitation.Patient be admitted to the hospital under Dr. Colon's service with the hospitalist. Critical Care Time: Yes Critical care time in (mins) excluding proc time.: 30 Critical care attestation.: If time is entered above; I have spent that time in minutes in the direct care of this critically ill patient, excluding procedure time. ED Disposition Clinical Impression: Diabetic foot infection, Hyperglycemia, Chronic anemia Sepsis Qualifiers: Sepsis type: sepsis due to unspecified organism Qualified Code(s): A41.9 - Sepsis, unspecified organism Disposition: OP ADMIT IP TO THIS HOSP Is pt being admited?: Yes Does the pt Need Aspirin: No Condition: Stable Instructions: Diabetes Mellitus Type 2 in Adults (ED) Referrals: PRIMARY CARE, [Primary Care Provider] - 3-5 Days
[2017-06-05 17:26] LABS: Bacteria,Urine 1+ /HPF (Negative); Bilirubin,Urine NEG (Negative); Blood,Urine NEG (Negative); Color,Urine Straw (Yellow); Mucus,Urine FEW /HPF; Urobilinogen,Urine < 2.0 mg/dL (<2.0)
[2017-06-05] MEDS ORDERED: D50W (25GM) Syringe IV PRN (17:36)
--- NOTE | 2017-06-05 17:44 | XRay Report ---
FINAL REPORT EXAM: XR CHEST 1V AP HISTORY: possible Sepsis TECHNIQUE: Frontal portable examination of the chest PRIORS: None FINDINGS: There is no visible pulmonary consolidation, pleural effusion, or pneumothorax. Cardiac silhouette size is normal without vascular congestion. No visible acute displaced fracture in the regional skeleton. IMPRESSION: No acute cardiopulmonary disease in the visualized chest
[2017-06-05] MEDS ORDERED: VANCOMYCIN/0.45 NS 1 GM/250 ML 1 GM/250 ML BAG IV ONE (18:00)
[2017-06-05] MEDS ORDERED: HumaLOG SUB-Q SCH (18:00)
[2017-06-05] MEDS ORDERED: VANCOMYCIN PHARMACY TO DOSE IV SCH (18:00)
[2017-06-05] MEDS: AZACTAM/NS 1 GM/50 ML 1 GM/50 ML VIAL IV SCH (18:25)
[2017-06-05] MEDS: SODIUM CHLORIDE FLUSH SYRINGE 10 ML IV SCH (22:00)
[2017-06-05] MEDS: APRESOLINE PO SCH (23:17)
[2017-06-05] MEDS: PEPCID PO SCH (23:18)
[2017-06-05] MEDS: TYLENOL PO PRN (23:19)
[2017-06-05] MEDS: FLEXERIL PO SCH (23:20)
[2017-06-05] MEDS: SODIUM BICARBONATE PO SCH (23:20)
[2017-06-05] MEDS: HumaLOG SUB-Q SCH (23:40)
[2017-06-05] MEDS ORDERED: MORPHINE IV ONE (23:49)
[2017-06-06] MEDS: HumaLOG SUB-Q SCH ×5 (00:09→17:03)
[2017-06-06] MEDS: SODIUM CHLORIDE FLUSH SYRINGE 10 ML IV PRN (05:33)
[2017-06-06] MEDS ORDERED: MORPHINE IV ONE (06:00)
[2017-06-06] MEDS: APRESOLINE PO SCH ×3 (09:27→22:38)
[2017-06-06] MEDS: SODIUM BICARBONATE PO SCH ×3 (09:30→22:38)
[2017-06-06] MEDS: FLEXERIL PO SCH ×3 (09:30→22:39)
[2017-06-06] MEDS: AZACTAM/NS 1 GM/50 ML 1 GM/50 ML VIAL IV SCH ×2 (10:51)
[2017-06-06] MEDS: PEPCID PO SCH ×2 (10:52→22:30)
[2017-06-06] MEDS: NORVASC PO SCH (10:52)
[2017-06-06] MEDS: SODIUM CHLORIDE FLUSH SYRINGE 10 ML IV SCH ×2 (10:53→22:30)
[2017-06-06] MEDS: TYLENOL PO PRN ×2 (16:37→22:37)
[2017-06-06] MEDS ORDERED: VANCOMYCIN VIAL 750 MG in NACL 0.9% 250ML 250 ML IV SCH (18:00)
[2017-06-06] MEDS: PERCOCET 5/325 PO PRN (18:47)
[2017-06-06] MEDS: AZACTAM 1,000 MG in NACL 0.9% 20 ML IV SCH (20:00)
[2017-06-07] MEDS: PERCOCET 5/325 PO PRN ×2 (00:52→23:35)
[2017-06-07] MEDS: AZACTAM 1,000 MG in NACL 0.9% 20 ML IV SCH ×3 (00:52→22:04)
[2017-06-07] MEDS: HumaLOG SUB-Q SCH ×4 (00:53→18:41)
[2017-06-07] MEDS: APRESOLINE PO SCH ×3 (09:24→20:30)
[2017-06-07] MEDS: FLEXERIL PO SCH ×3 (09:25→20:31)
[2017-06-07] MEDS: NORVASC PO SCH (09:25)
[2017-06-07] MEDS: PEPCID PO SCH ×2 (09:25→21:32)
[2017-06-07] MEDS: SODIUM BICARBONATE PO SCH ×3 (09:25→20:32)
--- NOTE | 2017-06-07 12:46 | Progress Note ---
Assessment and Plan Assessment and plan: (1) Sepsis Current Visit: Yes Status: Acute Qualifiers: Sepsis type: sepsis due to unspecified organism Qualified Code(s): A41.9 - Sepsis, unspecified organism Plan to address problem: IV antibiotics, IVF resuscitation, monitor uop q shift, wound cultures, blood cultures, serial lactic acid, (2) Acidosis Current Visit: Yes Status: Acute Plan to address problem: secondary to sepsis, treat sepsis, IVF resuscitation, serial lactic acid levels (3) Diabetic foot infection Current Visit: Yes Status: Acute Plan to address problem: MR CATHLEEN to evaluate for osteomyelitis. Will recheck creatnine and conduct MRI when renal function has normalized. , IV antibiotic therapy, wound care consulted. (4) ARF (acute renal failure) Current Visit: No Status: Acute Qualifiers: Acute renal failure type: with acute tubular necrosis Qualified Code(s): N17.0 - Acute kidney failure with tubular necrosis Plan to address problem: IVF resuscitation, monitor uop q shift, serial bmp to monitor serum creatnine. (5) DVT prophylaxis Current Visit: No Status: Acute Plan to address problem: scd to BLE History Interval history: Review of systems Constitutional: No fevers, no malaise, no joint pains Complaining of right foot pain, pain is controlled on current pain medications CVS: No chest pain, no orthopnea, no dyspnea on exertion, no pedal edema GI: No abdominal pain, no diarrhea, no vomiting, no constipation Respiratory: No shortness of breath, no wheezing, no coughing Hospitalist Physical - Physical exam Narrative exam: General.: Appears well, no distress, nontoxic HEENT: Moist mucous membranes, extraocular muscles intact, no lymphadenopathy Neck: supple Cardiac: S1-S2 heard Lungs: clear to auscultation bilaterally Abdomen: soft , nontender, nondistended, bowel sounds positive Extremities: There is a draining wound on her right heel and lateral side of her right foot, surrounding edema and erythema Skin: no rash or lesions Neurologic: no gross focal deficits Psych: appropriate behavior, appropriate mood, corporative, judgment intact - Constitutional Vitals: Temp Pulse Resp BP Pulse Ox 99.8 F H 93 H 20 142/87 98 06/07/17 07:56 06/07/17 09:24 06/07/17 07:56 06/07/17 09:24 06/07/17 07:56 General appearance: Present: mild distress Results - Labs CBC & Chem 7: 06/09/17 07:56 06/08/17 09:12 Labs: Laboratory Last Values WBC 19.8 K/mm3 (4.5-11.0) H 06/05/17 16:00 RBC 3.18 M/mm3 (3.65-5.03) L 06/05/17 16:00 Hgb 7.7 gm/dl (10.1-14.3) L 06/05/17 16:00 Hct 25.2 % (30.3-42.9) L 06/05/17 16:00 MCV 79 fl (79-97) 06/05/17 16:00 MCH 24 pg (28-32) L 06/05/17 16:00 MCHC 31 % (30-34) 06/05/17 16:00 RDW 18.9 % (13.2-15.2) H 06/05/17 16:00 Plt Count 530 K/mm3 (140-440) H 06/05/17 16:00 Lymph % (Auto) 5.8 % (13.4-35.0) L 06/05/17 16:00 [place] % (Auto) 5.4 % (0.0-7.3) 06/05/17 16:00 Eos % (Auto) 0.4 % (0.0-4.3) 06/05/17 16:00 Baso % (Auto) 0.5 % (0.0-1.8) 06/05/17 16:00 Lymph # 1.2 K/mm3 (1.2-5.4) 06/05/17 16:00 [place] # 1.1 K/mm3 (0.0-0.8) H 06/05/17 16:00 Eos # 0.1 K/mm3 (0.0-0.4) 06/05/17 16:00 Baso # 0.1 K/mm3 (0.0-0.1) 06/05/17 16:00 Seg Neutrophils % 87.9 % (40.0-70.0) H 06/05/17 16:00 Seg Neutrophils # 17.4 K/mm3 (1.8-7.7) H 06/05/17 16:00 PT 12.8 Sec. (12.2-14.9) 06/05/17 16:07 INR 0.92 (0.87-1.13) 06/05/17 16:07 VBG pH 7.323 (7.320-7.420) 06/05/17 16:00 Sodium 129 mmol/L (137-145) L 06/05/17 16:11 Potassium 4.5 mmol/L (3.6-5.0) 06/05/17 16:11 Chloride 93.4 mmol/L (98-107) L 06/05/17 16:11 Carbon Dioxide 18 mmol/L (22-30) L 06/05/17 16:11 Anion Gap 22 mmol/L 06/05/17 16:11 BUN 21 mg/dL (7-17) H 06/05/17 16:11 Creatinine 2.2 mg/dL (0.7-1.2) H 06/05/17 16:11 Estimated GFR 30 ml/min 06/05/17 16:11 BUN/Creatinine Ratio 10 % 06/05/17 16:11 Glucose 408 mg/dL (65-100) H 06/05/17 16:11 POC Glucose 215 (70-105) H 06/07/17 12:16 Hemoglobin A1c 10.2 % (4-6) H 06/05/17 16:00 Lactic Acid 1.80 mmol/L (0.7-2.0) 06/05/17 23:47 Calcium 9.3 mg/dL (8.4-10.2) 06/05/17 16:11 Total Bilirubin < 0.20 mg/dL (0.1-1.2) 06/05/17 16:11 AST 14 units/L (5-40) 06/05/17 16:11 ALT 13 units/L (7-56) 06/05/17 16:11 Alkaline Phosphatase 165 units/L (35-129) H 06/05/17 16:11 Total Protein 7.8 g/dL (6.3-8.2) 06/05/17 16:11 Albumin 3.5 g/dL (3.9-5) L 06/05/17 16:11 Albumin/Globulin Ratio 0.8 % 06/05/17 16:11 Urine Color Straw (Yellow) 06/05/17 16:49 Urine Turbidity Clear (Clear) 06/05/17 16:49 Urine pH 5.0 (5.0-7.0) 06/05/17 16:49 Ur Specific [place] 1.017 (1.003-1.030) 06/05/17 16:49 Urine Protein 100 mg/dl mg/dL (Negative) 06/05/17 16:49 Urine Glucose (UA) >=500 mg/dL (Negative) 06/05/17 16:49 Urine Ketones Neg mg/dL (Negative) 06/05/17 16:49 Urine Blood Neg (Negative) 06/05/17 16:49 Urine Nitrite Neg (Negative) 06/05/17 16:49 Urine Bilirubin Neg (Negative) 06/05/17 16:49 Urine Urobilinogen < 2.0 mg/dL (<2.0) 06/05/17 16:49 Ur Leukocyte Esterase Neg (Negative) 06/05/17 16:49 Urine WBC (Auto) 1.0 /HPF (0.0-6.0) 06/05/17 16:49 Urine RBC (Auto) 2.0 /HPF (0.0-6.0) 06/05/17 16:49 U Epithel Cells (Auto) 2.0 /HPF (0-13.0) 06/05/17 16:49 Urine Bacteria (Auto) 1+ /HPF (Negative) 06/05/17 16:49 Urine Mucus Few /HPF 06/05/17 16:49
--- NOTE | 2017-06-07 14:27 | Consultation ---
History of Present Illness - Reason for Consult Consult date: 06/07/17 Diabetic foot infection Requesting physician: NETTIE FRANCO - History of Present Illness HPI: 36 yo female PMH IDDM, HTN, anxiety, neuropathy who presented to the ER due to fever of 104 at home for 1 day. Pt has a R foot ulcer that initially started in April as a skin cut. She underwent R foot I and D in a Hospital in [place] on 05/20. She was told there was wound infection, but no abscess or OM. She was discharged home on po clindamycin, She took it for 2 1/2 weeks. She was doing the dressing changes at home, wound was healing well. She also noted increase pain of her R foot. She denies N/V/D, CP, cough, SOB, abdominal pain, dysuria. In the ER temperature was 100.6, pulse 113, respiratory rate 14, blood pressure 147/85, saturation 98%. White blood cell count 19.8, H&H 7.7 and 25.2 , platelets 530. BUN and creatinine 21 and 2.2. UA showed negative nitrate and negative leukocyte esterase. RBC 2, WBC 1. Urine culture grew skin armin. Blood cultures from 06/05 are no growth today. Chest x-ray on 06/05 was negative. MRI of RLE was ordered. Patient is on aztreonam and vancomycin. ID service is consulted for further antibiotic management Microbiology Blood cx 06/05/17 NGTD Urine culture 06/05 skin armin Wound culture 06/06 pending. Antibiotics Aztreonam 06/05 IV vancomycin 06/05 Past History Past Medical History: diabetes, hypertension, other (anxiety, neuropathy) Past Surgical History: bowel surgery, Other (Right foot debridement) Social history: single. denies: smoking, alcohol abuse, prescription drug abuse Family history: diabetes, hypertension Medications and Allergies Allergies Allergy/AdvReac Type Severity Reaction Status Date / Time lisinopril Allergy Swelling Verified 04/27/17 00:18 Penicillins Allergy Swelling Verified 04/27/17 00:18 Home Medications Medication Instructions Recorded Confirmed Last Taken Type Cyclobenzaprine 10 mg PO TID 04/27/17 04/27/17 Unknown History Lantus 40 units SQ HS 04/27/17 04/27/17 Unknown History Sodium Bicarbonate 650 mg PO TID 04/27/17 04/27/17 Unknown History amLODIPine [Norvasc] 10 mg PO QDAY #10 tablet 04/29/17 Unknown Rx hydrALAZINE [Apresoline TAB] 50 mg PO TID #90 tab 04/29/17 Unknown Rx Active Meds: Active Medications Acetaminophen (Tylenol) 650 mg PO Q4H PRN PRN Reason: Pain MILD(1-3)/Fever >100.5/GARRIDO Last Admin: 06/06/17 22:37 Dose: 650 mg Albuterol (Proventil) 2.5 mg IH Q4H PRN PRN Reason: Shortness Of Breath Amlodipine Besylate (Norvasc) 10 mg PO QDAY [facility] Last Admin: 06/07/17 09:25 Dose: 10 mg Cyclobenzaprine HCl (Flexeril) 10 mg PO TID [facility] Last Admin: 06/07/17 09:25 Dose: 10 mg Dextrose (D50w (25gm) Syringe) 50 ml IV PRN PRN PRN Reason: Hypoglycemia Famotidine (Pepcid) 10 mg PO BID [facility] Last Admin: 06/07/17 09:25 Dose: 10 mg Hydralazine HCl (Apresoline) 50 mg PO TID [facility] Last Admin: 06/07/17 09:24 Dose: 50 mg Vancomycin HCl 750 mg/ Sodium (Chloride) 250 mls @ 166.667 mls/hr IV Q24H [facility] Last Admin: 06/06/17 18:16 Dose: 166.667 mls/hr Aztreonam 1,000 mg/ Sodium (Chloride) 20 mls @ 2 mls/min IV Q8H [facility] Last Admin: 06/07/17 09:34 Dose: 2 mls/min Insulin Human Isoph/Insulin Regular (Humulin 70/30) 10 unit SUB-Q BIDDIAB [facility] Last Admin: 06/07/17 09:25 Dose: 10 unit Insulin Human Lispro (Humalog) 0 unit SUB-Q Q6HR [facility]; Protocol Last Admin: 06/07/17 07:01 Dose: Not Given Ondansetron HCl (Zofran) 4 mg IV Q8H PRN PRN Reason: Nausea And Vomiting Last Admin: 06/06/17 05:27 Dose: 4 mg Oxycodone/Acetaminophen (Percocet 5/325) 1 tab PO Q6H PRN PRN Reason: Pain, Moderate (4-6) Last Admin: 06/07/17 00:52 Dose: 1 tab Sodium Bicarbonate (Sodium Bicarbonate) 650 mg PO TID [facility] Last Admin: 06/07/17 09:25 Dose: 650 mg Sodium Chloride (Sodium Chloride Flush Syringe 10 Ml) 10 ml IV BID [facility] Last Admin: 06/06/17 22:30 Dose: 10 ml Sodium Chloride (Sodium Chloride Flush Syringe 10 Ml) 10 ml IV PRN PRN PRN Reason: LINE FLUSH Last Admin: 06/06/17 05:33 Dose: 10 ml Vancomycin HCl (Vancomycin Pharmacy To Dose) 1 each IV PKCONSULT [facility] Review of Systems Constitutional: other (As per HPI.) Physical Examination - Physical Exam Narrative exam: General appearance: Pt in NAD, A&Ox3. Eyes: anicteric sclerae, moist conjunctivae; PERRLA. HENT: Atraumatic; oropharynx clear with moist mucous membranes and no mucosal ulcerations/no oral thrush; normal hard and soft palate. Normal external ears. Neck: Trachea midline; supple, no thyromegaly or lymphadenopathy Lungs: CTA, with normal respiratory effort and no intercostal retractions CV: S1,S2 Abdomen: +BS. Soft. NT/ND. Extremities: R lateral foot wound (pictures seen in business applications developer camera). Bone palpable, maceration around edges, foul odor. Skin: As above. Psych: Appropriate affect, alert and oriented to person, place and time. Neuro: alert and oriented x 3. Moving all extremities. Lines: PIV. - Constitutional Vitals: Vital Signs Temp Pulse Resp BP Pulse Ox 99.8 F H 109 H 20 142/87 98 06/07/17 07:56 06/07/17 10:00 06/07/17 10:00 06/07/17 09:24 06/07/17 10:00 Temperature -Last 24 Hours Temperature 99.8 F Temperature 100.3 F Temperature 100.8 F Results - Labs CBC & Chem 7: 06/05/17 16:00 06/07/17 12:29 Labs: Abnormal lab results 06/06/17 06/07/17 06/07/17 Range/Units 22:30 04:03 05:36 Sodium (137-145) mmol/L Carbon Dioxide (22-30) mmol/L BUN (7-17) mg/dL Creatinine (0.7-1.2) mg/dL Glucose (65-100) mg/dL POC Glucose 116 H 137 H 148 H (70-105) 06/07/17 06/07/17 Range/Units 12:16 12:29 Sodium 133 L (137-145) mmol/L Carbon Dioxide 20 L (22-30) mmol/L BUN 21 H (7-17) mg/dL Creatinine 2.3 H (0.7-1.2) mg/dL Glucose 197 H (65-100) mg/dL POC Glucose 215 H (70-105) Assessment and Plan Assessment: 1) Sepsis present on admission. Patient with fever, tachycardia, leukocytosis. Likely source right foot infection. 2) R foot infected ulcer. Possible underlying OM. 3) Thrombocytosis. Likely reactive 4) HARIKA 5) IDDM 6) Penicillin allergy (swelling) Recommendations: -CBC, BMP -Will f/u blood cx -Surgery on consult -MRI RLE done, will f/u results -Check ESR, CRP in AM -Continue aztreonam -Stop vancomycin since eleavated creatinine -Start linezolid -Will adjust antibiotics pending cultures Thank you for your consultation, will follow up with you. Rosina Seals MD Infectious Diseases Specialist [facility] ([facility]) M [phone]
[2017-06-07] MEDS: SODIUM CHLORIDE FLUSH SYRINGE 10 ML IV SCH ×2 (15:26→21:33)
[2017-06-07] MEDS ORDERED: NACL 0.9% 500 ML 500 ML IV NR (15:31)
--- NOTE | 2017-06-07 16:57 | Consultation ---
History of Present Illness - Reason for Consult Consult date: 06/07/17 - History of Present Illness This is a very pleasant 36 year old female seen in consult for a right foot wound. She states that in Apr of this year, a wound began to develop at the lateral aspect of her right foot. It did not heal well and eventually needed debridement, which was performed in [place], [place]. Two days ago, she developed fevers, and given that the wound was still not healing well, she presented to the hospital. She reports subjective fevers and chills at home for several days. She has been a Type 1 diabetes patient for 19 years and has never had a foot wound until this year. Past History Past Medical History: diabetes, hypertension, other (anxiety, neuropathy) Past Surgical History: bowel surgery, Other (Right foot debridement) Social history: single. denies: smoking, alcohol abuse, prescription drug abuse Family history: diabetes, hypertension Medications and Allergies Allergies Allergy/AdvReac Type Severity Reaction Status Date / Time lisinopril Allergy Swelling Verified 04/27/17 00:18 Penicillins Allergy Swelling Verified 04/27/17 00:18 Home Medications Medication Instructions Recorded Confirmed Last Taken Type Cyclobenzaprine 10 mg PO TID 04/27/17 04/27/17 Unknown History Lantus 40 units SQ HS 04/27/17 04/27/17 Unknown History Sodium Bicarbonate 650 mg PO TID 04/27/17 04/27/17 Unknown History amLODIPine [Norvasc] 10 mg PO QDAY #10 tablet 04/29/17 Unknown Rx hydrALAZINE [Apresoline TAB] 50 mg PO TID #90 tab 04/29/17 Unknown Rx Active Meds: Active Medications Acetaminophen (Tylenol) 650 mg PO Q4H PRN PRN Reason: Pain MILD(1-3)/Fever >100.5/GARRIDO Last Admin: 06/06/17 22:37 Dose: 650 mg Albuterol (Proventil) 2.5 mg IH Q4H PRN PRN Reason: Shortness Of Breath Amlodipine Besylate (Norvasc) 10 mg PO QDAY [facility] Last Admin: 06/07/17 09:25 Dose: 10 mg Cyclobenzaprine HCl (Flexeril) 10 mg PO TID [facility] Last Admin: 06/07/17 15:21 Dose: 10 mg Dextrose (D50w (25gm) Syringe) 50 ml IV PRN PRN PRN Reason: Hypoglycemia Famotidine (Pepcid) 10 mg PO BID [facility] Last Admin: 06/07/17 09:25 Dose: 10 mg Hydralazine HCl (Apresoline) 50 mg PO TID [facility] Last Admin: 06/07/17 15:21 Dose: 50 mg Aztreonam 1,000 mg/ Sodium (Chloride) 20 mls @ 2 mls/min IV Q12HR [facility] Sodium Chloride (Nacl 0.9% 500 Ml) 500 mls @ 0 mls/hr IV ONCE NR Stop: 06/07/17 23:59 Linezolid (Zyvox 600mg/300ml) 600 mg in 300 mls @ 300 mls/hr IV Q12HR [facility]; Protocol Insulin Human Isoph/Insulin Regular (Humulin 70/30) 10 unit SUB-Q BIDDIAB [facility] Last Admin: 06/07/17 09:25 Dose: 10 unit Insulin Human Lispro (Humalog) 0 unit SUB-Q Q6HR [facility]; Protocol Last Admin: 06/07/17 15:16 Dose: Not Given Ondansetron HCl (Zofran) 4 mg IV Q8H PRN PRN Reason: Nausea And Vomiting Last Admin: 06/06/17 05:27 Dose: 4 mg Oxycodone/Acetaminophen (Percocet 5/325) 1 tab PO Q6H PRN PRN Reason: Pain, Moderate (4-6) Last Admin: 06/07/17 00:52 Dose: 1 tab Sodium Bicarbonate (Sodium Bicarbonate) 650 mg PO TID [facility] Last Admin: 06/07/17 15:21 Dose: 650 mg Sodium Chloride (Sodium Chloride Flush Syringe 10 Ml) 10 ml IV BID [facility] Last Admin: 06/07/17 15:26 Dose: 10 ml Sodium Chloride (Sodium Chloride Flush Syringe 10 Ml) 10 ml IV PRN PRN PRN Reason: LINE FLUSH Last Admin: 06/06/17 05:33 Dose: 10 ml Sodium Hypochlorite (Dakin's Full Strength) 1 applic TP Q12H [facility] Exam - Constitutional Vitals: Temp Pulse Resp BP Pulse Ox 101.0 F H 118 H 16 126/78 100 06/07/17 16:00 06/07/17 16:00 06/07/17 16:00 06/07/17 16:00 06/07/17 16:00 General appearance: Present: no acute distress, well-nourished - EENT Eyes: Present: PERRL ENT: hearing intact, clear oral mucosa - Neck Neck: Present: supple, normal ROM - Respiratory Respiratory effort: normal Respiratory: bilateral: CTA - Cardiovascular Heart Sounds: Present: S1 & S2. Absent: rub, click - Extremities Extremities: pulses symmetrical, No edema Extremity abnormal: other (The wound has been recently dressed, did not unwrap) Peripheral Pulses: within normal limits - Abdominal General gastrointestinal: Present: soft, non-tender, non-distended, normal bowel sounds Female genitourinary: Present: normal - Integumentary Integumentary: Present: clear, warm, dry - Musculoskeletal Musculoskeletal: gait normal, strength equal bilaterally - Psychiatric Psychiatric: appropriate mood/affect, intact judgment & insight - Neurologic Neurologic: CNII-XII intact, moves all extremities Results - Labs CBC & Chem 7: 06/05/17 16:00 06/07/17 12:29 Labs: Abnormal lab results 06/06/17 06/07/17 06/07/17 Range/Units 22:30 04:03 05:36 Sodium (137-145) mmol/L Carbon Dioxide (22-30) mmol/L BUN (7-17) mg/dL Creatinine (0.7-1.2) mg/dL Glucose (65-100) mg/dL POC Glucose 116 H 137 H 148 H (70-105) 06/07/17 06/07/17 Range/Units 12:16 12:29 Sodium 133 L (137-145) mmol/L Carbon Dioxide 20 L (22-30) mmol/L BUN 21 H (7-17) mg/dL Creatinine 2.3 H (0.7-1.2) mg/dL Glucose 197 H (65-100) mg/dL POC Glucose 215 H (70-105) - Imaging and Cardiology Venous US: report reviewed, image reviewed Assessment and Plan At this point, she doesn't require vascular intervention. She has easily palpable pedal pulses and normal ANTHONY's. I would continue with the current course of local wound care and involvement of the infectious disease service.
[2017-06-07 16:58] LABS: Basophils % (Auto) 0.2 % (0.0-1.8); Eosinophils # (Auto) 0.1 K/mm3 (0.0-0.4); Eosinophils % (Auto) 0.5 % (0.0-4.3); Hematocrit 21.9 % (30.3-42.9); Hemoglobin 6.8 gm/dl (10.1-14.3); Lymphocytes # (Auto) 1.5 K/mm3 (1.2-5.4); Lymphocytes % (Auto) 7.6 % (13.4-35.0); Mean Corpuscular HGB Conc 31 % (30-34); Mean Corpuscular Volume 78 fl (79-97); Monocytes # (Auto) 1.2 K/mm3 (0.0-0.8); Monocytes % (Auto) 6.2 % (0.0-7.3); Platelet Count 497 K/mm3 (140-440); Red Cell Distribution Width 18.7 % (13.2-15.2)
[2017-06-07 16:59] LABS: Mean Corpuscular Hemoglobin 24 pg (28-32)
[2017-06-07 17:11] LABS: Calcium 8.9 mg/dL (8.4-10.2)
[2017-06-07] MEDS: TYLENOL PO PRN (17:13)
[2017-06-07] MEDS: ZYVOX 600MG/300ML 600 MG/300 ML BAG IV SCH (21:32)
[2017-06-07] MEDS: DAKIN'S FULL STRENGTH TP SCH (23:09)
[2017-06-08] MEDS: HumaLOG SUB-Q SCH ×4 (00:10→19:10)
[2017-06-08 09:52] LABS: Hematocrit 23.6 % (30.3-42.9); Hemoglobin 7.6 gm/dl (10.1-14.3); Mean Corpuscular HGB Conc 32 % (30-34); Mean Corpuscular Volume 80 fl (79-97); Platelet Count 460 K/mm3 (140-440); Red Blood Count 2.97 M/mm3 (3.65-5.03); Red Cell Distribution Width 18.5 % (13.2-15.2)
[2017-06-08] MEDS: APRESOLINE PO SCH ×3 (09:52→22:21)
[2017-06-08 09:53] LABS: Mean Corpuscular Hemoglobin 26 pg (28-32)
[2017-06-08 10:14] LABS: Calcium 8.9 mg/dL (8.4-10.2)
[2017-06-08] MEDS: PEPCID PO SCH ×2 (10:26→22:21)
[2017-06-08] MEDS: AZACTAM 1,000 MG in NACL 0.9% 20 ML IV SCH (10:29)
[2017-06-08] MEDS: ZYVOX 600MG/300ML 600 MG/300 ML BAG IV SCH ×2 (10:30→22:23)
[2017-06-08] MEDS: SODIUM BICARBONATE PO SCH ×3 (10:36→23:59)
[2017-06-08] MEDS: FLEXERIL PO SCH ×3 (10:36→22:22)
[2017-06-08] MEDS: NORVASC PO SCH (10:40)
[2017-06-08] MEDS: SODIUM CHLORIDE FLUSH SYRINGE 10 ML IV SCH ×2 (10:41→22:26)
--- NOTE | 2017-06-08 10:45 | Magnetic Resonance Report ---
MRI RIGHT FOOT without AND WITH CONTRAST: 06/06/17 12:00:00 CLINICAL: Foot pain. COMPARISON:None. TECHNIQUE: Sagittal, coronal and axial T1, coronal and axial T2 fat sat, sagittal STIR and sagittal, coronal and axial postcontrast T1 fat sat sequences on a 1.5 Gaby magnet. 12 cc of Multihance was injected intravenously for the contrast portion of the exam and consent was obtained prior to the administration of contrast. FINDINGS: An ulcer of the posterolateral heel with a sinus tract extending to a multiloculated fluid collection. The fluid collection measures approximately 2.0 x 2.0 x 3.5 cm and has an enhancing wall. The fluid collection extends to the posterolateral margin of the calcaneus where there is cortical erosion, focal marrow edema and focal enhancement. The rest of the bones have normal marrow signal. No fracture or dislocation. The flexor tendons and peroneal tendons are intact. Ligaments are grossly intact. Moderate subcutaneous soft tissue edema, greater on the lateral and plantar aspects of the hindfoot. IMPRESSION: 1. Osteomyelitis involving the posterolateral calcaneus. 2. A 3.5 x 2.0 x 2.3 cm multiloculated soft tissue abscess of the posterolateral heel extends from the skin to the calcaneus. 3. Moderate diffuse subcutaneous soft tissue edema.
[2017-06-08] MEDS: DAKIN'S FULL STRENGTH TP SCH (11:02)
--- NOTE | 2017-06-08 11:59 | Progress Note ---
Assessment and Plan Assessment: 1) Sepsis present on admission. Patient with fever, tachycardia, leukocytosis. Likely source right foot infection. -Leukocytosis - improved. 2) R foot infected ulcer with OM of postero-lateral calcaneous and multiloculated soft tissue abscess of postero-lateral heel extending from skin to calcaneous as per MRI. -ESR and CRP elevated 3) Thrombocytosis. Likely reactive. Improved. 4) HARIKA. Creatinie stable. 5) IDDM 6) Penicillin allergy (swelling) Recommendations: -Will f/u blood cx. -Stop aztreonam. -Will give ceftriaxone with close monitoring for rash, itchiness, swelling. -If tolerates ceftriaxone, will stop linezolid. -Podiatry has been consulted. -Will follow up with you. Rosina Seals MD Infectious Diseases Specialist [facility] ([facility]) M [phone] Subjective Date of service: 06/08/17 Interval history: Afebrile. No foot pain. Microbiology Blood cx 06/05/17 NGTD Urine culture 06/05 skin armin Wound culture 06/06 Strep group B Antibiotics Aztreonam 06/05 Linezolid 06/07- Prior antibiotics IV vancomycin 06/05-06/07 Objective - Exam Narrative Exam: General appearance: Pt in NAD, A&Ox3. Eyes: anicteric sclerae, moist conjunctivae; PERRLA. HENT: Atraumatic; oropharynx clear with moist mucous membranes and no mucosal ulcerations/no oral thrush; normal hard and soft palate. Normal external ears. Neck: Trachea midline; supple, no thyromegaly or lymphadenopathy Lungs: CTA, with normal respiratory effort and no intercostal retractions CV: S1,S2 Abdomen: +BS. Soft. NT/ND. Extremities: R lateral foot wound (pictures seen in crab picker camera). Bone palpable, maceration around edges, foul odor. Skin: As above. Psych: Appropriate affect, alert and oriented to person, place and time. Neuro: alert and oriented x 3. Moving all extremities. Lines: PIV. - Constitutional Vitals: Vital Signs Temp Pulse Resp BP Pulse Ox 98.5 F 109 H 20 125/78 95 06/08/17 08:28 06/08/17 08:28 06/08/17 08:28 06/08/17 10:40 06/08/17 08:28 Temperature -Last 24 Hours Temperature 98.5 F Temperature 98.7 F Temperature 98.9 F Temperature 98.9 F Temperature 98.8 F Temperature 98.8 F Temperature 98.5 F Temperature 98.9 F Temperature 96.8 F Temperature 101.0 F - Labs CBC & Chem 7: 06/08/17 09:12 06/08/17 09:12 Labs: Abnormal lab results 06/07/17 06/07/17 06/07/17 Range/Units 12:16 12:29 15:54 WBC 19.5 H (4.5-11.0) K/mm3 RBC 2.80 L (3.65-5.03) M/mm3 Hgb 6.8 L (10.1-14.3) gm/dl Hct 21.9 L (30.3-42.9) % MCV 78 L (79-97) fl MCH 24 L (28-32) pg RDW 18.7 H (13.2-15.2) % Plt Count 497 H (140-440) K/mm3 Lymph % (Auto) 7.6 L (13.4-35.0) % [place] # 1.2 H (0.0-0.8) K/mm3 Seg Neutrophils % 85.5 H (40.0-70.0) % Seg Neutrophils # 16.7 H (1.8-7.7) K/mm3 Sodium 133 L (137-145) mmol/L Chloride (98-107) mmol/L Carbon Dioxide 20 L (22-30) mmol/L BUN 21 H (7-17) mg/dL Creatinine 2.3 H (0.7-1.2) mg/dL Glucose 197 H (65-100) mg/dL POC Glucose 215 H (70-105) C-Reactive Protein (0.00-1.30) mg/dL Crossmatch 06/07/17 06/07/17 06/07/17 Range/Units 15:54 16:03 16:22 WBC (4.5-11.0) K/mm3 RBC (3.65-5.03) M/mm3 Hgb (10.1-14.3) gm/dl Hct (30.3-42.9) % MCV (79-97) fl MCH (28-32) pg RDW (13.2-15.2) % Plt Count (140-440) K/mm3 Lymph % (Auto) (13.4-35.0) % [place] # (0.0-0.8) K/mm3 Seg Neutrophils % (40.0-70.0) % Seg Neutrophils # (1.8-7.7) K/mm3 Sodium 133 L (137-145) mmol/L Chloride 95.8 L (98-107) mmol/L Carbon Dioxide 19 L (22-30) mmol/L BUN 21 H (7-17) mg/dL Creatinine 2.2 H (0.7-1.2) mg/dL Glucose 173 H (65-100) mg/dL POC Glucose 206 H (70-105) C-Reactive Protein (0.00-1.30) mg/dL Crossmatch See Detail 06/07/17 06/08/17 06/08/17 Range/Units 22:58 06:03 06:05 WBC (4.5-11.0) K/mm3 RBC (3.65-5.03) M/mm3 Hgb (10.1-14.3) gm/dl Hct (30.3-42.9) % MCV (79-97) fl MCH (28-32) pg RDW (13.2-15.2) % Plt Count (140-440) K/mm3 Lymph % (Auto) (13.4-35.0) % [place] # (0.0-0.8) K/mm3 Seg Neutrophils % (40.0-70.0) % Seg Neutrophils # (1.8-7.7) K/mm3 Sodium (137-145) mmol/L Chloride (98-107) mmol/L Carbon Dioxide (22-30) mmol/L BUN (7-17) mg/dL Creatinine (0.7-1.2) mg/dL Glucose (65-100) mg/dL POC Glucose 254 H 246 H (70-105) C-Reactive Protein 24.20 H (0.00-1.30) mg/dL Crossmatch 06/08/17 06/08/17 Range/Units 09:12 09:12 WBC 16.8 H (4.5-11.0) K/mm3 RBC 2.97 L (3.65-5.03) M/mm3 Hgb 7.6 L (10.1-14.3) gm/dl Hct 23.6 L (30.3-42.9) % MCV (79-97) fl MCH 26 L (28-32) pg RDW 18.5 H (13.2-15.2) % Plt Count 460 H (140-440) K/mm3 Lymph % (Auto) (13.4-35.0) % [place] # (0.0-0.8) K/mm3 Seg Neutrophils % (40.0-70.0) % Seg Neutrophils # (1.8-7.7) K/mm3 Sodium 136 L (137-145) mmol/L Chloride (98-107) mmol/L Carbon Dioxide 19 L (22-30) mmol/L BUN 21 H (7-17) mg/dL Creatinine 2.3 H (0.7-1.2) mg/dL Glucose 199 H (65-100) mg/dL POC Glucose (70-105) C-Reactive Protein (0.00-1.30) mg/dL Crossmatch
--- NOTE | 2017-06-08 14:11 | Consultation ---
History of Present Illness Consult date: 06/08/17 Reason for consult: other (Diabetic ulcer, right heel) - History of present illness History of present illness: 36 yo diabetic female with CC. This was I&D'd at an outside facility on . Past History Past Medical History: diabetes, hypertension, other (anxiety, neuropathy) Past Surgical History: bowel surgery, Other (Right foot debridement) Social history: single. denies: smoking, alcohol abuse, prescription drug abuse Family history: diabetes, hypertension Medications and Allergies Allergies Allergy/AdvReac Type Severity Reaction Status Date / Time lisinopril Allergy Swelling Verified 04/27/17 00:18 Penicillins Allergy Swelling Verified 04/27/17 00:18 Home Medications Medication Instructions Recorded Confirmed Last Taken Type Cyclobenzaprine 10 mg PO TID 04/27/17 06/08/17 Unknown History Lantus 40 units SQ HS 04/27/17 06/08/17 Unknown History Sodium Bicarbonate 650 mg PO TID 04/27/17 06/08/17 Unknown History amLODIPine [Norvasc] 10 mg PO QDAY #10 tablet 04/29/17 06/08/17 Unknown Rx hydrALAZINE [Apresoline TAB] 50 mg PO TID #90 tab 04/29/17 06/08/17 Unknown Rx Active Meds: Active Medications Acetaminophen (Tylenol) 650 mg PO Q4H PRN PRN Reason: Pain MILD(1-3)/Fever >100.5/GARRIDO Last Admin: 06/07/17 17:13 Dose: 650 mg Albuterol (Proventil) 2.5 mg IH Q4H PRN PRN Reason: Shortness Of Breath Amlodipine Besylate (Norvasc) 10 mg PO QDAY [facility] Last Admin: 06/08/17 10:40 Dose: Not Given Cyclobenzaprine HCl (Flexeril) 10 mg PO TID [facility] Last Admin: 06/08/17 10:36 Dose: 10 mg Dextrose (D50w (25gm) Syringe) 50 ml IV PRN PRN PRN Reason: Hypoglycemia Famotidine (Pepcid) 10 mg PO BID [facility] Last Admin: 06/08/17 10:26 Dose: 10 mg Hydralazine HCl (Apresoline) 50 mg PO TID [facility] Last Admin: 06/08/17 09:52 Dose: Not Given Linezolid (Zyvox 600mg/300ml) 600 mg in 300 mls @ 300 mls/hr IV Q12HR [facility]; Protocol Last Admin: 06/08/17 10:30 Dose: 300 mls/hr Ceftriaxone Sodium 2 gm/ (Sodium Chloride) 20 mls @ 20 mls/10 min IV Q24HR [facility] ; Protocol Insulin Human Isoph/Insulin Regular (Humulin 70/30) 10 unit SUB-Q BIDDIAB [facility] Last Admin: 06/08/17 10:27 Dose: 10 unit Insulin Human Lispro (Humalog) 0 unit SUB-Q Q6HR [facility]; Protocol Last Admin: 06/08/17 06:59 Dose: 3 unit Ondansetron HCl (Zofran) 4 mg IV Q8H PRN PRN Reason: Nausea And Vomiting Last Admin: 06/06/17 05:27 Dose: 4 mg Oxycodone/Acetaminophen (Percocet 5/325) 1 tab PO Q6H PRN PRN Reason: Pain, Moderate (4-6) Last Admin: 06/07/17 23:35 Dose: 1 tab Sodium Bicarbonate (Sodium Bicarbonate) 650 mg PO TID [facility] Last Admin: 06/08/17 10:36 Dose: 650 mg Sodium Chloride (Sodium Chloride Flush Syringe 10 Ml) 10 ml IV BID [facility] Last Admin: 06/08/17 10:41 Dose: 10 ml Sodium Chloride (Sodium Chloride Flush Syringe 10 Ml) 10 ml IV PRN PRN PRN Reason: LINE FLUSH Last Admin: 06/06/17 05:33 Dose: 10 ml Sodium Hypochlorite (Dakin's Full Strength) 1 applic TP Q12H [facility] Last Admin: 06/08/17 11:02 Dose: Not Given Review of Systems All systems: negative (none) Exam Vital Signs Temp Pulse Resp BP Pulse Ox 100.6 F H 113 H 14 147/85 98 06/05/17 15:46 06/05/17 15:46 06/05/17 15:46 06/05/17 15:46 06/05/17 15:46 - General physical appearance Positive: well developed, well nourished, no distress - Eyes Positive: PERRL, normal occular movement - ENT Positive: normal pinna, normal nares, normal mucosa, no hearing loss, no congestion - Neck Positive: no masses, no bruits, trachea midline, no venous distension - Respiratory Positive: normal expansion, normal respiratory effort, clear to auscultation - Cardiovascular Rhythm: regular Heart Sounds: Present: S1 & S2. Absent: rub, click - Extremities Extremities: abnormal (There is a triangular ulcer of her right lateral heel with the length of each side being 1.5-2.0 cm. There is undermining and the calcaneus is palpable. There is purulent drainage emanating from the ulcer.) - Breasts Breasts: deferred - Abdomen Abdomen: Present: soft, bowel sounds normal. Absent: tender, distended Hernia: none - Genitourinary Female Genitourinary: deferred - Neurologic Neurologic: alert and oriented to time, place and person, motor strength and sensation are grossly intact - Musculoskeletal normal gait, normal posture - Psychiatric Psychiatric: appropriate mood/affect, intact judgment & insight Results - Labs 06/08/17 09:12 06/08/17 09:12 Abnormal lab results 06/07/17 06/07/17 06/07/17 Range/Units 15:54 15:54 16:03 WBC 19.5 H (4.5-11.0) K/mm3 RBC 2.80 L (3.65-5.03) M/mm3 Hgb 6.8 L (10.1-14.3) gm/dl Hct 21.9 L (30.3-42.9) % MCV 78 L (79-97) fl MCH 24 L (28-32) pg RDW 18.7 H (13.2-15.2) % Plt Count 497 H (140-440) K/mm3 Lymph % (Auto) 7.6 L (13.4-35.0) % [place] # 1.2 H (0.0-0.8) K/mm3 Seg Neutrophils % 85.5 H (40.0-70.0) % Seg Neutrophils # 16.7 H (1.8-7.7) K/mm3 Sodium 133 L (137-145) mmol/L Chloride 95.8 L (98-107) mmol/L Carbon Dioxide 19 L (22-30) mmol/L BUN 21 H (7-17) mg/dL Creatinine 2.2 H (0.7-1.2) mg/dL Glucose 173 H (65-100) mg/dL POC Glucose (70-105) C-Reactive Protein (0.00-1.30) mg/dL Crossmatch See Detail 06/07/17 06/07/17 06/08/17 Range/Units 16:22 22:58 06:03 WBC (4.5-11.0) K/mm3 RBC (3.65-5.03) M/mm3 Hgb (10.1-14.3) gm/dl Hct (30.3-42.9) % MCV (79-97) fl MCH (28-32) pg RDW (13.2-15.2) % Plt Count (140-440) K/mm3 Lymph % (Auto) (13.4-35.0) % [place] # (0.0-0.8) K/mm3 Seg Neutrophils % (40.0-70.0) % Seg Neutrophils # (1.8-7.7) K/mm3 Sodium (137-145) mmol/L Chloride (98-107) mmol/L Carbon Dioxide (22-30) mmol/L BUN (7-17) mg/dL Creatinine (0.7-1.2) mg/dL Glucose (65-100) mg/dL POC Glucose 206 H 254 H 246 H (70-105) C-Reactive Protein (0.00-1.30) mg/dL Crossmatch 06/08/17 06/08/17 06/08/17 Range/Units 06:05 09:12 09:12 WBC 16.8 H (4.5-11.0) K/mm3 RBC 2.97 L (3.65-5.03) M/mm3 Hgb 7.6 L (10.1-14.3) gm/dl Hct 23.6 L (30.3-42.9) % MCV (79-97) fl MCH 26 L (28-32) pg RDW 18.5 H (13.2-15.2) % Plt Count 460 H (140-440) K/mm3 Lymph % (Auto) (13.4-35.0) % [place] # (0.0-0.8) K/mm3 Seg Neutrophils % (40.0-70.0) % Seg Neutrophils # (1.8-7.7) K/mm3 Sodium 136 L (137-145) mmol/L Chloride (98-107) mmol/L Carbon Dioxide 19 L (22-30) mmol/L BUN 21 H (7-17) mg/dL Creatinine 2.3 H (0.7-1.2) mg/dL Glucose 199 H (65-100) mg/dL POC Glucose (70-105) C-Reactive Protein 24.20 H (0.00-1.30) mg/dL Crossmatch 06/08/17 Range/Units 11:59 WBC (4.5-11.0) K/mm3 RBC (3.65-5.03) M/mm3 Hgb (10.1-14.3) gm/dl Hct (30.3-42.9) % MCV (79-97) fl MCH (28-32) pg RDW (13.2-15.2) % Plt Count (140-440) K/mm3 Lymph % (Auto) (13.4-35.0) % [place] # (0.0-0.8) K/mm3 Seg Neutrophils % (40.0-70.0) % Seg Neutrophils # (1.8-7.7) K/mm3 Sodium (137-145) mmol/L Chloride (98-107) mmol/L Carbon Dioxide (22-30) mmol/L BUN (7-17) mg/dL Creatinine (0.7-1.2) mg/dL Glucose (65-100) mg/dL POC Glucose 322 H (70-105) C-Reactive Protein (0.00-1.30) mg/dL Crossmatch Diabetes panel 06/07/17 06/08/17 Range/Units 15:54 09:12 Sodium 133 L 136 L (137-145) mmol/L Potassium 4.3 3.9 (3.6-5.0) mmol/L Chloride 95.8 L 100.4 (98-107) mmol/L Carbon Dioxide 19 L 19 L (22-30) mmol/L BUN 21 H 21 H (7-17) mg/dL Creatinine 2.2 H 2.3 H (0.7-1.2) mg/dL Glucose 173 H 199 H (65-100) mg/dL Calcium 8.9 8.9 (8.4-10.2) mg/dL Calcium panel 06/07/17 06/08/17 Range/Units 15:54 09:12 Calcium 8.9 8.9 (8.4-10.2) mg/dL Pituitary panel 06/07/17 06/08/17 Range/Units 15:54 09:12 Sodium 133 L 136 L (137-145) mmol/L Potassium 4.3 3.9 (3.6-5.0) mmol/L Chloride 95.8 L 100.4 (98-107) mmol/L Carbon Dioxide 19 L 19 L (22-30) mmol/L BUN 21 H 21 H (7-17) mg/dL Creatinine 2.2 H 2.3 H (0.7-1.2) mg/dL Glucose 173 H 199 H (65-100) mg/dL Calcium 8.9 8.9 (8.4-10.2) mg/dL Adrenal panel 06/07/17 06/08/17 Range/Units 15:54 09:12 Sodium 133 L 136 L (137-145) mmol/L Potassium 4.3 3.9 (3.6-5.0) mmol/L Chloride 95.8 L 100.4 (98-107) mmol/L Carbon Dioxide 19 L 19 L (22-30) mmol/L BUN 21 H 21 H (7-17) mg/dL Creatinine 2.2 H 2.3 H (0.7-1.2) mg/dL Glucose 173 H 199 H (65-100) mg/dL Calcium 8.9 8.9 (8.4-10.2) mg/dL - Imaging Additional studies: MRI of right foot and arterial dopplers were reviewed. Assessment and Plan - Patient Problems (1) Diabetic foot infection Current Visit: Yes Status: Acute Plan to address problem: 1) I will take the pt to the OR tomorrow for debridement and unroofing of her right lateral heel ulceration. Deep cultures will be obtained. 2) Strict DM control 3) F/u of official arterial doppler report 4) Continue broad spectrum IV antibiotics
--- NOTE | 2017-06-08 16:35 | Progress Note ---
Assessment and Plan Assessment and plan: MRI r foot 1. Osteomyelitis involving the posterolateral calcaneus. 2. A 3.5 x 2.0 x 2.3 cm multiloculated soft tissue abscess of the posterolateral heel extends from the skin to the calcaneus. 3. Moderate diffuse subcutaneous soft tissue edema. (1) Sepsis IV antibiotics, IVF resuscitation, monitor uop q shift, wound cultures, blood cultures, serial lactic acid, (2) Acidosis Current Visit: Yes Status: Acute Plan to address problem: secondary to sepsis, treat sepsis, IVF resuscitation, serial lactic acid levels Right foot Osteomylitis and cellulitis continue abx, ID input appreciated, to OR with Dr conde for debridement and deep cultures (4) ARF (acute renal failure) Current Visit: No Status: Acute Qualifiers: Acute renal failure type: with acute tubular necrosis Qualified Code(s): N17.0 - Acute kidney failure with tubular necrosis Plan to address problem: IVF resuscitation, monitor uop q shift, serial bmp to monitor serum creatnine. (5) DVT prophylaxis Current Visit: No Status: Acute Plan to address problem: scd to BLE History Interval history: Review of systems Constitutional: No fevers, no malaise, no joint pains Complaining of right foot pain, pain is controlled on current pain medications CVS: No chest pain, no orthopnea, no dyspnea on exertion, no pedal edema GI: No abdominal pain, no diarrhea, no vomiting, no constipation Respiratory: No shortness of breath, no wheezing, no coughing Hospitalist Physical - Physical exam Narrative exam: General.: Appears well, no distress, nontoxic HEENT: Moist mucous membranes, extraocular muscles intact, no lymphadenopathy Neck: supple Cardiac: S1-S2 heard Lungs: clear to auscultation bilaterally Abdomen: soft , nontender, nondistended, bowel sounds positive Extremities: There is a draining wound on her right heel and lateral side of her right foot, surrounding edema and erythema Skin: no rash or lesions Neurologic: no gross focal deficits Psych: appropriate behavior, appropriate mood, corporative, judgment intact - Constitutional Vitals: Temp Pulse Resp BP Pulse Ox 98.5 F 109 H 20 125/78 95 06/08/17 08:28 06/08/17 08:28 06/08/17 08:28 06/08/17 10:40 06/08/17 08:28 General appearance: Present: no acute distress, well-nourished Results - Labs CBC & Chem 7: 06/09/17 07:56 06/08/17 09:12 Labs: Laboratory Last Values WBC 16.8 K/mm3 (4.5-11.0) H 06/08/17 09:12 RBC 2.97 M/mm3 (3.65-5.03) L 06/08/17 09:12 Hgb 7.6 gm/dl (10.1-14.3) L 06/08/17 09:12 Hct 23.6 % (30.3-42.9) L 06/08/17 09:12 MCV 80 fl (79-97) 06/08/17 09:12 MCH 26 pg (28-32) L 06/08/17 09:12 MCHC 32 % (30-34) 06/08/17 09:12 RDW 18.5 % (13.2-15.2) H 06/08/17 09:12 Plt Count 460 K/mm3 (140-440) H 06/08/17 09:12 Lymph % (Auto) 7.6 % (13.4-35.0) L 06/07/17 15:54 [place] % (Auto) 6.2 % (0.0-7.3) 06/07/17 15:54 Eos % (Auto) 0.5 % (0.0-4.3) 06/07/17 15:54 Baso % (Auto) 0.2 % (0.0-1.8) 06/07/17 15:54 Lymph # 1.5 K/mm3 (1.2-5.4) 06/07/17 15:54 [place] # 1.2 K/mm3 (0.0-0.8) H 06/07/17 15:54 Eos # 0.1 K/mm3 (0.0-0.4) 06/07/17 15:54 Baso # 0.0 K/mm3 (0.0-0.1) 06/07/17 15:54 Seg Neutrophils % 85.5 % (40.0-70.0) H 06/07/17 15:54 Seg Neutrophils # 16.7 K/mm3 (1.8-7.7) H 06/07/17 15:54 ESR > 140.0 mm/Hr (0-20) 06/08/17 06:05 PT 12.8 Sec. (12.2-14.9) 06/05/17 16:07 INR 0.92 (0.87-1.13) 06/05/17 16:07 VBG pH 7.323 (7.320-7.420) 06/05/17 16:00 Sodium 136 mmol/L (137-145) L 06/08/17 09:12 Potassium 3.9 mmol/L (3.6-5.0) 06/08/17 09:12 Chloride 100.4 mmol/L (98-107) 06/08/17 09:12 Carbon Dioxide 19 mmol/L (22-30) L 06/08/17 09:12 Anion Gap 21 mmol/L 06/08/17 09:12 BUN 21 mg/dL (7-17) H 06/08/17 09:12 Creatinine 2.3 mg/dL (0.7-1.2) H 06/08/17 09:12 Estimated GFR 29 ml/min 06/08/17 09:12 BUN/Creatinine Ratio 9 % 06/08/17 09:12 Glucose 199 mg/dL (65-100) H 06/08/17 09:12 POC Glucose 322 (70-105) H 06/08/17 11:59 Hemoglobin A1c 10.2 % (4-6) H 06/05/17 16:00 Lactic Acid 1.80 mmol/L (0.7-2.0) 06/05/17 23:47 Calcium 8.9 mg/dL (8.4-10.2) 06/08/17 09:12 Total Bilirubin < 0.20 mg/dL (0.1-1.2) 06/05/17 16:11 AST 14 units/L (5-40) 06/05/17 16:11 ALT 13 units/L (7-56) 06/05/17 16:11 Alkaline Phosphatase 165 units/L (35-129) H 06/05/17 16:11 C-Reactive Protein 24.20 mg/dL (0.00-1.30) H 06/08/17 06:05 Total Protein 7.8 g/dL (6.3-8.2) 06/05/17 16:11 Albumin 3.5 g/dL (3.9-5) L 06/05/17 16:11 Albumin/Globulin Ratio 0.8 % 06/05/17 16:11 Urine Color Straw (Yellow) 06/05/17 16:49 Urine Turbidity Clear (Clear) 06/05/17 16:49 Urine pH 5.0 (5.0-7.0) 06/05/17 16:49 Ur Specific [place] 1.017 (1.003-1.030) 06/05/17 16:49 Urine Protein 100 mg/dl mg/dL (Negative) 06/05/17 16:49 Urine Glucose (UA) >=500 mg/dL (Negative) 06/05/17 16:49 Urine Ketones Neg mg/dL (Negative) 06/05/17 16:49 Urine Blood Neg (Negative) 06/05/17 16:49 Urine Nitrite Neg (Negative) 06/05/17 16:49 Urine Bilirubin Neg (Negative) 06/05/17 16:49 Urine Urobilinogen < 2.0 mg/dL (<2.0) 06/05/17 16:49 Ur Leukocyte Esterase Neg (Negative) 06/05/17 16:49 Urine WBC (Auto) 1.0 /HPF (0.0-6.0) 06/05/17 16:49 Urine RBC (Auto) 2.0 /HPF (0.0-6.0) 06/05/17 16:49 U Epithel Cells (Auto) 2.0 /HPF (0-13.0) 06/05/17 16:49 Urine Bacteria (Auto) 1+ /HPF (Negative) 06/05/17 16:49 Urine Mucus Few /HPF 06/05/17 16:49 Blood Type O POSITIVE 06/07/17 16:03 Antibody Screen Negative 06/07/17 16:03 Crossmatch See Detail 06/07/17 16:03
--- NOTE | 2017-06-08 16:35 | Progress Note ---
Assessment and Plan Assessment and plan: 36-year-old woman with diabetes, uncontrolled presents with right foot pain and drainage, has had diabetic foot infection MRI r foot 1. Osteomyelitis involving the posterolateral calcaneus. 2. A 3.5 x 2.0 x 2.3 cm multiloculated soft tissue abscess of the posterolateral heel extends from the skin to the calcaneus. 3. Moderate diffuse subcutaneous soft tissue edema. (1) Sepsis IV antibiotics, IVF resuscitation, monitor uop q shift, wound cultures, blood cultures, serial lactic acid, (2) Acidosis secondary to sepsis, treat sepsis, IVF resuscitation, serial lactic acid levels (3) Diabetic foot infection MR RLE to evaluate for osteomyelitis. Will recheck creatnine and conduct MRI when renal function has normalized. , IV antibiotic therapy, wound care consulted. Uncontrolled diabetes Patient's could not afford insulin as at home, she has now been switched to 70/ 30 insulin ARF (acute renal failure) IVF resuscitation, monitor uop q shift, serial bmp to monitor serum creatnine. (5) DVT prophylaxis Current Visit: No Status: Acute Plan to address problem: scd to BLE History Interval history: Review of systems Constitutional: No fevers, no malaise, no joint pains Complaining of right foot pain, pain is controlled on current pain medications CVS: No chest pain, no orthopnea, no dyspnea on exertion, no pedal edema GI: No abdominal pain, no diarrhea, no vomiting, no constipation Respiratory: No shortness of breath, no wheezing, no coughing Hospitalist Physical - Physical exam Narrative exam: General.: Appears well, no distress, nontoxic HEENT: Moist mucous membranes, extraocular muscles intact, no lymphadenopathy Neck: supple Cardiac: S1-S2 heard Lungs: clear to auscultation bilaterally Abdomen: soft , nontender, nondistended, bowel sounds positive Extremities: There is a draining wound on her right heel and lateral side of her right foot, surrounding edema and erythema Skin: no rash or lesions Neurologic: no gross focal deficits Psych: appropriate behavior, appropriate mood, corporative, judgment intact - Constitutional Vitals: Temp Pulse Resp BP Pulse Ox 98.5 F 109 H 20 125/78 95 06/08/17 08:28 06/08/17 08:28 06/08/17 08:28 06/08/17 10:40 06/08/17 08:28 General appearance: Present: no acute distress, well-nourished Results - Labs CBC & Chem 7: 06/09/17 07:56 06/08/17 09:12 Labs: Laboratory Last Values WBC 16.8 K/mm3 (4.5-11.0) H 06/08/17 09:12 RBC 2.97 M/mm3 (3.65-5.03) L 06/08/17 09:12 Hgb 7.6 gm/dl (10.1-14.3) L 06/08/17 09:12 Hct 23.6 % (30.3-42.9) L 06/08/17 09:12 MCV 80 fl (79-97) 06/08/17 09:12 MCH 26 pg (28-32) L 06/08/17 09:12 MCHC 32 % (30-34) 06/08/17 09:12 RDW 18.5 % (13.2-15.2) H 06/08/17 09:12 Plt Count 460 K/mm3 (140-440) H 06/08/17 09:12 Lymph % (Auto) 7.6 % (13.4-35.0) L 06/07/17 15:54 [place] % (Auto) 6.2 % (0.0-7.3) 06/07/17 15:54 Eos % (Auto) 0.5 % (0.0-4.3) 06/07/17 15:54 Baso % (Auto) 0.2 % (0.0-1.8) 06/07/17 15:54 Lymph # 1.5 K/mm3 (1.2-5.4) 06/07/17 15:54 [place] # 1.2 K/mm3 (0.0-0.8) H 06/07/17 15:54 Eos # 0.1 K/mm3 (0.0-0.4) 06/07/17 15:54 Baso # 0.0 K/mm3 (0.0-0.1) 06/07/17 15:54 Seg Neutrophils % 85.5 % (40.0-70.0) H 06/07/17 15:54 Seg Neutrophils # 16.7 K/mm3 (1.8-7.7) H 06/07/17 15:54 ESR > 140.0 mm/Hr (0-20) 06/08/17 06:05 PT 12.8 Sec. (12.2-14.9) 06/05/17 16:07 INR 0.92 (0.87-1.13) 06/05/17 16:07 VBG pH 7.323 (7.320-7.420) 06/05/17 16:00 Sodium 136 mmol/L (137-145) L 06/08/17 09:12 Potassium 3.9 mmol/L (3.6-5.0) 06/08/17 09:12 Chloride 100.4 mmol/L (98-107) 06/08/17 09:12 Carbon Dioxide 19 mmol/L (22-30) L 06/08/17 09:12 Anion Gap 21 mmol/L 06/08/17 09:12 BUN 21 mg/dL (7-17) H 06/08/17 09:12 Creatinine 2.3 mg/dL (0.7-1.2) H 06/08/17 09:12 Estimated GFR 29 ml/min 06/08/17 09:12 BUN/Creatinine Ratio 9 % 06/08/17 09:12 Glucose 199 mg/dL (65-100) H 06/08/17 09:12 POC Glucose 322 (70-105) H 06/08/17 11:59 Hemoglobin A1c 10.2 % (4-6) H 06/05/17 16:00 Lactic Acid 1.80 mmol/L (0.7-2.0) 06/05/17 23:47 Calcium 8.9 mg/dL (8.4-10.2) 06/08/17 09:12 Total Bilirubin < 0.20 mg/dL (0.1-1.2) 06/05/17 16:11 AST 14 units/L (5-40) 06/05/17 16:11 ALT 13 units/L (7-56) 06/05/17 16:11 Alkaline Phosphatase 165 units/L (35-129) H 06/05/17 16:11 C-Reactive Protein 24.20 mg/dL (0.00-1.30) H 06/08/17 06:05 Total Protein 7.8 g/dL (6.3-8.2) 06/05/17 16:11 Albumin 3.5 g/dL (3.9-5) L 06/05/17 16:11 Albumin/Globulin Ratio 0.8 % 06/05/17 16:11 Urine Color Straw (Yellow) 06/05/17 16:49 Urine Turbidity Clear (Clear) 06/05/17 16:49 Urine pH 5.0 (5.0-7.0) 06/05/17 16:49 Ur Specific [place] 1.017 (1.003-1.030) 06/05/17 16:49 Urine Protein 100 mg/dl mg/dL (Negative) 06/05/17 16:49 Urine Glucose (UA) >=500 mg/dL (Negative) 06/05/17 16:49 Urine Ketones Neg mg/dL (Negative) 06/05/17 16:49 Urine Blood Neg (Negative) 06/05/17 16:49 Urine Nitrite Neg (Negative) 06/05/17 16:49 Urine Bilirubin Neg (Negative) 06/05/17 16:49 Urine Urobilinogen < 2.0 mg/dL (<2.0) 06/05/17 16:49 Ur Leukocyte Esterase Neg (Negative) 06/05/17 16:49 Urine WBC (Auto) 1.0 /HPF (0.0-6.0) 06/05/17 16:49 Urine RBC (Auto) 2.0 /HPF (0.0-6.0) 06/05/17 16:49 U Epithel Cells (Auto) 2.0 /HPF (0-13.0) 06/05/17 16:49 Urine Bacteria (Auto) 1+ /HPF (Negative) 06/05/17 16:49 Urine Mucus Few /HPF 06/05/17 16:49 Blood Type O POSITIVE 06/07/17 16:03 Antibody Screen Negative 06/07/17 16:03 Crossmatch See Detail 06/07/17 16:03
--- NOTE | 2017-06-08 19:18 | Anesthesia Consultation ---
Anesthesia Consult and Med Hx Date of service: 06/08/17 - Airway Anesthetic Teeth Evaluation: Poor ROM Head & Neck: Adequate Mental/Hyoid Distance: Adequate Mallampati Class: Class III Intubation Access Assessment: Probably Good - Pulmonary Exam CTA: Yes - Cardiac Exam Cardiac Exam: No Murmur - Pre-Operative Health Status ASA Pre-Surgery Classification: ASA3 Proposed Anesthetic Plan: General - Pulmonary Hx Smoking: No Hx Asthma: Yes Hx Respiratory Symptoms: No SOB: No COPD: No Home Oxygen Therapy: No Hx Pneumonia: No Hx Sleep Apnea: No - Cardiovascular System Hx Hypertension: Yes (2013) - Central Nervous System Hx Psychiatric Problems: Yes - Endocrine Hx Renal Disease: Yes Hx End Stage Renal Disease: No Hx Insulin Dependent Diabetes: Yes (peripheral neuropathy in bilateral hands and feet) - Hematic Hx Anemia: Yes - Other Systems Hx Alcohol Use: No Hx Substance Use: No Hx Obesity: No - Additional Comments Anesthesia Medical History Comments: Patient tolerates <4 METS.. Limited by peripheral neuropathy and right heel discomfort 2/2 ulceration. Mobilizes with either wheelchair or walker. Patient suffers from anxiety.. not nervous about surgery at this point.
[2017-06-09] MEDS: HumaLOG SUB-Q SCH ×3 (00:50→19:46)
[2017-06-09] MEDS: MORPHINE IV PRN ×2 (02:49→22:03)
[2017-06-09 08:37] LABS: Basophils # (Auto) 0.1 K/mm3 (0.0-0.1); Basophils % (Auto) 0.4 % (0.0-1.8); Eosinophils # (Auto) 0.2 K/mm3 (0.0-0.4); Eosinophils % (Auto) 1.4 % (0.0-4.3); Hematocrit 23.5 % (30.3-42.9); Hemoglobin 7.5 gm/dl (10.1-14.3); Lymphocytes % (Auto) 6.6 % (13.4-35.0); Mean Corpuscular HGB Conc 32 % (30-34); Mean Corpuscular Hemoglobin 25 pg (28-32); Mean Corpuscular Volume 79 fl (79-97); Monocytes # (Auto) 1.3 K/mm3 (0.0-0.8); Monocytes % (Auto) 8.8 % (0.0-7.3); Platelet Count 494 K/mm3 (140-440); Red Blood Count 2.99 M/mm3 (3.65-5.03); Red Cell Distribution Width 18.7 % (13.2-15.2)
--- NOTE | 2017-06-09 09:21 | Progress Note ---
Assessment and Plan Assessment: 1) Sepsis present on admission. Patient with fever, tachycardia, leukocytosis. Likely source right foot infection. -Leukocytosis - improved. 2) R foot infected ulcer with OM of postero-lateral calcaneous and multiloculated soft tissue abscess of postero-lateral heel extending from skin to calcaneous as per MRI. -ESR and CRP elevated 3) Thrombocytosis. Likely reactive. Fluctuates. 4) HARIKA. Creatinine stable. 5) IDDM 6) Penicillin allergy (swelling) Recommendations: -Will f/u blood cx. -Will give one dose of ceftriaxone today with close monitoring for rash, itchiness, swelling. -If tolerates ceftriaxone, will stop linezolid. -For I and D today. -CBC, BMP in AM. -Will follow up with you. -d/w RN. Rosina Seals MD Infectious Diseases Specialist [facility] ([facility]) M [phone] Subjective Date of service: 06/09/17 Interval history: Afebrile. No new c/o. Microbiology Blood cx 06/05/17 NGTD Urine culture 06/05 skin armin Wound culture 06/06 Strep group B Antibiotics Linezolid 06/07- Prior antibiotics IV vancomycin 06/05-06/07 Aztreonam 06/05 Objective - Exam Narrative Exam: General appearance: Pt in NAD, A&Ox3. Eyes: anicteric sclerae, moist conjunctivae; PERRLA. HENT: Atraumatic; oropharynx clear with moist mucous membranes and no mucosal ulcerations/no oral thrush; normal hard and soft palate. Normal external ears. Neck: Trachea midline; supple, no thyromegaly or lymphadenopathy Lungs: CTA, with normal respiratory effort and no intercostal retractions CV: S1,S2 Abdomen: +BS. Soft. NT/ND. Extremities: R lateral foot wound (pictures seen in senior design engineering specialist camera). Bone palpable, maceration around edges, foul odor. Skin: As above. Psych: Appropriate affect, alert and oriented to person, place and time. Neuro: alert and oriented x 3. Moving all extremities. Lines: PIV. - Constitutional Vitals: Vital Signs Temp Pulse Resp BP Pulse Ox 99.5 F 107 H 20 124/75 97 06/09/17 00:08 06/09/17 00:08 06/09/17 05:29 06/09/17 00:08 06/09/17 00:08 Temperature -Last 24 Hours Temperature 99.5 F Temperature 99.7 F - Labs CBC & Chem 7: 06/09/17 07:56 06/08/17 09:12 Labs: Abnormal lab results 06/08/17 06/08/17 06/08/17 Range/Units 09:12 09:12 11:59 WBC 16.8 H (4.5-11.0) K/mm3 RBC 2.97 L (3.65-5.03) M/mm3 Hgb 7.6 L (10.1-14.3) gm/dl Hct 23.6 L (30.3-42.9) % MCH 26 L (28-32) pg RDW 18.5 H (13.2-15.2) % Plt Count 460 H (140-440) K/mm3 Lymph % (Auto) (13.4-35.0) % [place] % (Auto) (0.0-7.3) % Lymph # (1.2-5.4) K/mm3 Tucker # (0.0-0.8) K/mm3 Seg Neutrophils % (40.0-70.0) % Seg Neutrophils # (1.8-7.7) K/mm3 Sodium 136 L (137-145) mmol/L Carbon Dioxide 19 L (22-30) mmol/L BUN 21 H (7-17) mg/dL Creatinine 2.3 H (0.7-1.2) mg/dL Glucose 199 H (65-100) mg/dL POC Glucose 322 H (70-105) 06/08/17 06/08/17 06/08/17 Range/Units 15:56 19:08 21:52 WBC (4.5-11.0) K/mm3 RBC (3.65-5.03) M/mm3 Hgb (10.1-14.3) gm/dl Hct (30.3-42.9) % MCH (28-32) pg RDW (13.2-15.2) % Plt Count (140-440) K/mm3 Lymph % (Auto) (13.4-35.0) % [place] % (Auto) (0.0-7.3) % Lymph # (1.2-5.4) K/mm3 Tucker # (0.0-0.8) K/mm3 Seg Neutrophils % (40.0-70.0) % Seg Neutrophils # (1.8-7.7) K/mm3 Sodium (137-145) mmol/L Carbon Dioxide (22-30) mmol/L BUN (7-17) mg/dL Creatinine (0.7-1.2) mg/dL Glucose (65-100) mg/dL POC Glucose 184 H 218 H 178 H (70-105) 06/09/17 06/09/17 Range/Units 06:00 07:56 WBC 14.7 H (4.5-11.0) K/mm3 RBC 2.99 L (3.65-5.03) M/mm3 Hgb 7.5 L (10.1-14.3) gm/dl Hct 23.5 L (30.3-42.9) % MCH 25 L (28-32) pg RDW 18.7 H (13.2-15.2) % Plt Count 494 H (140-440) K/mm3 Lymph % (Auto) 6.6 L (13.4-35.0) % [place] % (Auto) 8.8 H (0.0-7.3) % Lymph # 1.0 L (1.2-5.4) K/mm3 Tucker # 1.3 H (0.0-0.8) K/mm3 Seg Neutrophils % 82.8 H (40.0-70.0) % Seg Neutrophils # 12.2 H (1.8-7.7) K/mm3 Sodium (137-145) mmol/L Carbon Dioxide (22-30) mmol/L BUN (7-17) mg/dL Creatinine (0.7-1.2) mg/dL Glucose (65-100) mg/dL POC Glucose 126 H (70-105)
[2017-06-09] MEDS: cefTRIAXone 2 GM in NACL 0.9% 20 ML IV SCH (10:16)
[2017-06-09] MEDS: SODIUM CHLORIDE FLUSH SYRINGE 10 ML IV SCH ×2 (10:17→22:00)
[2017-06-09] MEDS: PEPCID PO SCH ×2 (10:17→21:58)
[2017-06-09] MEDS: SODIUM BICARBONATE PO SCH ×3 (10:17→21:59)
[2017-06-09] MEDS: APRESOLINE PO SCH ×3 (10:18→21:59)
[2017-06-09] MEDS: FLEXERIL PO SCH ×3 (10:19→22:00)
[2017-06-09] MEDS: DAKIN'S FULL STRENGTH TP SCH (10:19)
[2017-06-09] MEDS: NORVASC PO SCH (10:29)
--- NOTE | 2017-06-09 10:48 | Progress Note ---
Assessment and Plan Assessment and plan: 36F who pw with right foot purulent drainage and hyperglycemia MRI r foot 1. Osteomyelitis involving the posterolateral calcaneus. 2. A 3.5 x 2.0 x 2.3 cm multiloculated soft tissue abscess of the posterolateral heel extends from the skin to the calcaneus. 3. Moderate diffuse subcutaneous soft tissue edema. Sepsis IV antibiotics, IVF resuscitation, monitor uop q shift, wound cultures, blood cultures, serial lactic acid, Acidosis secondary to sepsis, treat sepsis, IVF resuscitation, serial lactic acid levels Right foot Osteomylitis and cellulitis continue abx, ID input appreciated, to OR with Dr conde for debridement and deep cultures type 2 Dm uncontrolled continue Insulins Since she self patient couldn't afford Lantus, therefore she has been switched to 70/30 insulin CKD stage 3-4 stable, at baseline Kidney function, avoid nephrotoxins (5) DVT prophylaxis Current Visit: No Status: Acute Plan to address problem: scd to BLE Dispo: home with abx and wound care when intraop cultures are finalized History Interval history: Review of systems Constitutional: No fevers, no malaise, no joint pains Complaining of right foot pain, pain is controlled on current pain medications CVS: No chest pain, no orthopnea, no dyspnea on exertion, no pedal edema GI: No abdominal pain, no diarrhea, no vomiting, no constipation Respiratory: No shortness of breath, no wheezing, no coughing Hospitalist Physical - Physical exam Narrative exam: General.: Appears well, no distress, nontoxic HEENT: Moist mucous membranes, extraocular muscles intact, no lymphadenopathy Neck: supple Cardiac: S1-S2 heard Lungs: clear to auscultation bilaterally Abdomen: soft , nontender, nondistended, bowel sounds positive Extremities: There is a draining wound on her right heel and lateral side of her right foot, surrounding edema and erythema Skin: no rash or lesions Neurologic: no gross focal deficits Psych: appropriate behavior, appropriate mood, corporative, judgment intact - Constitutional Vitals: Temp Pulse Resp BP Pulse Ox 99.0 F 104 H 20 140/87 95 06/09/17 08:07 06/09/17 08:07 06/09/17 08:07 06/09/17 10:29 06/09/17 08:07 General appearance: Present: no acute distress, well-nourished Results - Labs CBC & Chem 7: 06/10/17 11:38 06/10/17 11:38 Labs: Laboratory Last Values WBC 14.7 K/mm3 (4.5-11.0) H 06/09/17 07:56 RBC 2.99 M/mm3 (3.65-5.03) L 06/09/17 07:56 Hgb 7.5 gm/dl (10.1-14.3) L 06/09/17 07:56 Hct 23.5 % (30.3-42.9) L 06/09/17 07:56 MCV 79 fl (79-97) 06/09/17 07:56 MCH 25 pg (28-32) L 06/09/17 07:56 MCHC 32 % (30-34) 06/09/17 07:56 RDW 18.7 % (13.2-15.2) H 06/09/17 07:56 Plt Count 494 K/mm3 (140-440) H 06/09/17 07:56 Lymph % (Auto) 6.6 % (13.4-35.0) L 06/09/17 07:56 [place] % (Auto) 8.8 % (0.0-7.3) H 06/09/17 07:56 Eos % (Auto) 1.4 % (0.0-4.3) 06/09/17 07:56 Baso % (Auto) 0.4 % (0.0-1.8) 06/09/17 07:56 Lymph # 1.0 K/mm3 (1.2-5.4) L 06/09/17 07:56 [place] # 1.3 K/mm3 (0.0-0.8) H 06/09/17 07:56 Eos # 0.2 K/mm3 (0.0-0.4) 06/09/17 07:56 Baso # 0.1 K/mm3 (0.0-0.1) 06/09/17 07:56 Seg Neutrophils % 82.8 % (40.0-70.0) H 06/09/17 07:56 Seg Neutrophils # 12.2 K/mm3 (1.8-7.7) H 06/09/17 07:56 ESR > 140.0 mm/Hr (0-20) 06/08/17 06:05 PT 12.8 Sec. (12.2-14.9) 06/05/17 16:07 INR 0.92 (0.87-1.13) 06/05/17 16:07 VBG pH 7.323 (7.320-7.420) 06/05/17 16:00 Sodium 136 mmol/L (137-145) L 06/08/17 09:12 Potassium 3.9 mmol/L (3.6-5.0) 06/08/17 09:12 Chloride 100.4 mmol/L (98-107) 06/08/17 09:12 Carbon Dioxide 19 mmol/L (22-30) L 06/08/17 09:12 Anion Gap 21 mmol/L 06/08/17 09:12 BUN 21 mg/dL (7-17) H 06/08/17 09:12 Creatinine 2.3 mg/dL (0.7-1.2) H 06/08/17 09:12 Estimated GFR 29 ml/min 06/08/17 09:12 BUN/Creatinine Ratio 9 % 06/08/17 09:12 Glucose 199 mg/dL (65-100) H 06/08/17 09:12 POC Glucose 126 (70-105) H 06/09/17 06:00 Hemoglobin A1c 10.2 % (4-6) H 06/05/17 16:00 Lactic Acid 1.80 mmol/L (0.7-2.0) 06/05/17 23:47 Calcium 8.9 mg/dL (8.4-10.2) 06/08/17 09:12 Total Bilirubin < 0.20 mg/dL (0.1-1.2) 06/05/17 16:11 AST 14 units/L (5-40) 06/05/17 16:11 ALT 13 units/L (7-56) 06/05/17 16:11 Alkaline Phosphatase 165 units/L (35-129) H 06/05/17 16:11 C-Reactive Protein 24.20 mg/dL (0.00-1.30) H 06/08/17 06:05 Total Protein 7.8 g/dL (6.3-8.2) 06/05/17 16:11 Albumin 3.5 g/dL (3.9-5) L 06/05/17 16:11 Albumin/Globulin Ratio 0.8 % 06/05/17 16:11 Urine Color Straw (Yellow) 06/05/17 16:49 Urine Turbidity Clear (Clear) 06/05/17 16:49 Urine pH 5.0 (5.0-7.0) 06/05/17 16:49 Ur Specific [place] 1.017 (1.003-1.030) 06/05/17 16:49 Urine Protein 100 mg/dl mg/dL (Negative) 06/05/17 16:49 Urine Glucose (UA) >=500 mg/dL (Negative) 06/05/17 16:49 Urine Ketones Neg mg/dL (Negative) 06/05/17 16:49 Urine Blood Neg (Negative) 06/05/17 16:49 Urine Nitrite Neg (Negative) 06/05/17 16:49 Urine Bilirubin Neg (Negative) 06/05/17 16:49 Urine Urobilinogen < 2.0 mg/dL (<2.0) 06/05/17 16:49 Ur Leukocyte Esterase Neg (Negative) 06/05/17 16:49 Urine WBC (Auto) 1.0 /HPF (0.0-6.0) 06/05/17 16:49 Urine RBC (Auto) 2.0 /HPF (0.0-6.0) 06/05/17 16:49 U Epithel Cells (Auto) 2.0 /HPF (0-13.0) 06/05/17 16:49 Urine Bacteria (Auto) 1+ /HPF (Negative) 06/05/17 16:49 Urine Mucus Few /HPF 06/05/17 16:49 Blood Type O POSITIVE 06/07/17 16:03 Antibody Screen Negative 06/07/17 16:03 Crossmatch See Detail 06/07/17 16:03
--- NOTE | 2017-06-09 11:08 | Vascular Lab Report ---
LOWER EXTREMITY ARTERIAL PHYSIOLOGIC STUDY: REASON FOR EXAM: Right heel ulcer. COMMENTS ON THE RIGHT: Ankle brachial index is 1.08. This value is normal. Pulse volume recording at the level of the ankle is normal. Exercise testing was not done. COMMENTS ON THE LEFT: Ankle brachial index is 1.12. This value is normal. Pulse volume recording at the level of the ankle is normal. Exercise testing was not done. IMPRESSION: RIGHT: No hemodynamically significant arterial disease. LEFT:No hemodynamically significant arterial disease.
--- NOTE | 2017-06-09 11:09 | Vascular Lab Report ---
LOWER EXTREMITY ARTERIAL DUPLEX: REASON FOR EXAM: Right heel ulcer. COMMENTS ON THE RIGHT: Triphasic waveforms are seen proximally. Triphasic waveforms are seen distally. No significant velocity gradients are identified. No significant plaque is identified. Findings are consistent with normal perfusion. Findings are consistent with the ability to heal distal wounds. COMMENTS ON THE LEFT: Triphasic waveforms are seen proximally. Triphasic waveforms are seen distally. No significant velocity gradients are identified. No significant plaque is identified. Findings are consistent with normal perfusion. Findings are consistent with the ability to heal distal wounds. IMPRESSION: RIGHT: Essentially normal arterial flow. LEFT:Essentially normal arterial flow.
[2017-06-09] MEDS: ZYVOX 600MG/300ML 600 MG/300 ML BAG IV SCH ×2 (12:11→22:00)
[2017-06-09] MEDS ORDERED: cefTRIAXone 2 GM in NACL 0.9% 20 ML IV SCH (16:00)
--- NOTE | 2017-06-09 16:23 | Anesthesia Day of Surgery ---
Anesthesia Day of Surgery - Day of Surgery Patient Examined: Yes Patient H&P Reviewed: Yes Patient is NPO: Yes
--- NOTE | 2017-06-09 16:23 | Post Anesthesia Evaluation ---
- Post Anesthesia Evaluation Patient Participated: Yes Airway Patent: Yes Stable Respiratory Function: Yes Nausea/Vomiting: No Temp > 96.8F: Yes Pain Manageable: Yes Adequeate Hydration: Yes Anesthesia Complications: No Patient on Ventilator: No
--- NOTE | 2017-06-09 19:00 | Progress Note ---
Assessment and Plan - Patient Problems (1) Diabetic foot infection Current Visit: Yes Status: Acute Plan to address problem: 1) Will give pt a regular diabetic diet 2) NPO after MN 3) Debridement of right heel ulcer at 0800 in the morning Subjective Date of service: 06/09/17 Patient Reports: Positive: no new complaints (It is 7 pm and still no OR room is available.) Objective Vital Signs - 12hr 06/09/17 06/09/17 06/09/17 08:07 10:29 16:29 Temperature 99.0 F 98.8 F Pulse Rate 104 H 114 H Respiratory 20 20 Rate Blood Pressure 140/87 140/87 147/89 O2 Sat by Pulse 95 95 Oximetry - Labs 06/09/17 07:56 06/08/17 09:12 - Imaging Additional Studies: BLE arterial dopplers are unremarkable.
[2017-06-10] MEDS: HumaLOG SUB-Q SCH ×5 (01:23→20:48)
[2017-06-10] MEDS ORDERED: DIPRIVAN 10 MG/ML IV ONE (07:24)
[2017-06-10] MEDS ORDERED: XYLOCAINE MPF 2% ONE (07:24)
[2017-06-10] MEDS ORDERED: DILAUDID ONE (07:25)
[2017-06-10] MEDS ORDERED: HYDROGEN PEROXIDE ONE (07:28)
[2017-06-10] MEDS ORDERED: MARCAINE 0.25% INFILTRATI ONE (07:29)
--- NOTE | 2017-06-10 07:46 | Anesthesia Day of Surgery ---
Anesthesia Day of Surgery - Day of Surgery Patient Examined: Yes Patient H&P Reviewed: Yes Patient is NPO: Yes
--- NOTE | 2017-06-10 07:46 | Anesthesia Consultation ---
Anesthesia Consult and Med Hx Date of service: 06/10/17 - Airway Anesthetic Teeth Evaluation: Good ROM Head & Neck: Adequate Mental/Hyoid Distance: Adequate Mallampati Class: Class III Intubation Access Assessment: Possibly Difficult - Pulmonary Exam CTA: Yes - Cardiac Exam Cardiac Exam: RRR - Pre-Operative Health Status ASA Pre-Surgery Classification: ASA3 Proposed Anesthetic Plan: General (no previous anesthesia problems) - Pulmonary Hx Smoking: No Hx Asthma: Yes Hx Respiratory Symptoms: No SOB: No COPD: No Home Oxygen Therapy: No Hx Pneumonia: No Hx Sleep Apnea: No - Cardiovascular System Hx Hypertension: Yes (2013) - Central Nervous System Hx Psychiatric Problems: Yes - Endocrine Hx Renal Disease: Yes Hx End Stage Renal Disease: No Hx Insulin Dependent Diabetes: Yes (peripheral neuropathy in bilateral hands and feet) - Hematic Hx Anemia: Yes - Other Systems Hx Alcohol Use: No Hx Substance Use: No Hx Obesity: No - Additional Comments Anesthesia Medical History Comments: Patient tolerates <4 METS.. Limited by peripheral neuropathy and right heel discomfort 2/2 ulceration. Mobilizes with either wheelchair or walker. Patient suffers from anxiety.. not nervous about surgery at this point.
[2017-06-10] MEDS ORDERED: VERSED IV NR (07:50)
[2017-06-10] MEDS ORDERED: NACL 0.9% 1000 ML 1,000 ML IV SCH (07:50)
[2017-06-10] MEDS: APRESOLINE PO SCH ×3 (08:00→21:00)
[2017-06-10] MEDS: FLEXERIL PO SCH ×2 (08:00→14:35)
[2017-06-10] MEDS ORDERED: ZOFRAN ONE (08:30)
[2017-06-10] MEDS ORDERED: NEO SYNEPHRINE/NS Syringe(OR USE) IV ONE (08:39)
--- NOTE | 2017-06-10 08:56 | Post Operative Note ---
Pre-op diagnosis: Right heel diabetic abscess Post-op diagnosis: same Findings: Right heel/foot abscess Procedure: I&D Anesthesia: other (LMA) Surgeon: ZAK HUERTA Estimated blood loss: minimal Pathology: list (C&S) Specimen disposition: to lab Condition: stable Disposition: PACU
[2017-06-10] MEDS ORDERED: PEPCID IV NR (09:00)
[2017-06-10] MEDS ORDERED: NACL 0.9% IR ONE (09:11)
--- NOTE | 2017-06-10 11:29 | Procedure Note ---
Date of procedure: 06/10/17 Pre-op diagnosis: Diabetic right heel wound Post-op diagnosis: other (Diabetic abscess, right heel) Procedure: I&D of right heel abscess Description of procedure: Pt was placed supine on the OR table. General anesthesia by LMA was administered. Pt was repositioned with her left side down and the right foot was prepped and draped. The tunneled parts of the wound were unroofed with the Bovie distally and proximally. Necrotic SQ fat was excisionally debrided. An abscess pocket was encountered distally and this was further unroofed. Additional necrotic SQ fat was debrided. Cultures of the abscess pus were collected. The wound was irrigated with warm saline. Hemostasis was obtained with the Bovie. The wound was packed open with a dilute , Betadine moistened Kerlix roll followed by dry 4 X 4's and a Kerlix wrap. Pt tolerated the procedure well. Pt was taken to PACU in stable condition. Anesthesia: other (LMA) Surgeon: ZAK HUERTA Estimated blood loss: minimal Pathology: list (Gram stain and C&S) Specimen disposition: to lab Condition: stable Disposition: PACU
--- NOTE | 2017-06-10 11:34 | Progress Note ---
Assessment and Plan Assessment and plan: 36F who pw with right foot purulent drainage and hyperglycemia MRI r foot 1. Osteomyelitis involving the posterolateral calcaneus. 2. A 3.5 x 2.0 x 2.3 cm multiloculated soft tissue abscess of the posterolateral heel extends from the skin to the calcaneus. 3. Moderate diffuse subcutaneous soft tissue edema. Sepsis IV antibiotics, IVF resuscitation, monitor uop q shift, wound cultures, blood cultures, serial lactic acid, Acidosis secondary to sepsis, treat sepsis, IVF resuscitation, serial lactic acid levels Right foot Osteomylitis and cellulitis continue abx, ID input appreciated, to OR with Dr conde for debridement and deep cultures type 2 Dm uncontrolled continue Insulins Since she self patient couldn't afford Lantus, therefore she has been switched to 70/30 insulin CKD stage 3-4 stable, at baseline Kidney function, avoid nephrotoxins (5) DVT prophylaxis Current Visit: No Status: Acute Plan to address problem: scd to BLE Dispo: home with abx and wound care when intraop cultures are finalized; uninsured therefore keep on 70/30 History Interval history: Review of systems Constitutional: No fevers, no malaise, no joint pains Complaining of right foot pain, pain is controlled on current pain medications CVS: No chest pain, no orthopnea, no dyspnea on exertion, no pedal edema GI: No abdominal pain, no diarrhea, no vomiting, no constipation Respiratory: No shortness of breath, no wheezing, no coughing Hospitalist Physical - Physical exam Narrative exam: General.: Appears well, no distress, nontoxic HEENT: Moist mucous membranes, extraocular muscles intact, no lymphadenopathy Neck: supple Cardiac: S1-S2 heard Lungs: clear to auscultation bilaterally Abdomen: soft , nontender, nondistended, bowel sounds positive Extremities: There is a draining wound on her right heel and lateral side of her right foot, surrounding edema and erythema Skin: no rash or lesions Neurologic: no gross focal deficits Psych: appropriate behavior, appropriate mood, corporative, judgment intact - Constitutional Vitals: Temp Pulse Resp BP Pulse Ox 98.2 F 96 H 13 131/89 99 06/10/17 09:00 06/10/17 09:30 06/10/17 09:30 06/10/17 09:30 06/10/17 09:30 General appearance: Present: no acute distress, well-nourished Results - Labs CBC & Chem 7: 06/10/17 11:38 06/10/17 11:38 Labs: Laboratory Last Values WBC 14.7 K/mm3 (4.5-11.0) H 06/09/17 07:56 RBC 2.99 M/mm3 (3.65-5.03) L 06/09/17 07:56 Hgb 7.5 gm/dl (10.1-14.3) L 06/09/17 07:56 Hct 23.5 % (30.3-42.9) L 06/09/17 07:56 MCV 79 fl (79-97) 06/09/17 07:56 MCH 25 pg (28-32) L 06/09/17 07:56 MCHC 32 % (30-34) 06/09/17 07:56 RDW 18.7 % (13.2-15.2) H 06/09/17 07:56 Plt Count 494 K/mm3 (140-440) H 06/09/17 07:56 Lymph % (Auto) 6.6 % (13.4-35.0) L 06/09/17 07:56 [place] % (Auto) 8.8 % (0.0-7.3) H 06/09/17 07:56 Eos % (Auto) 1.4 % (0.0-4.3) 06/09/17 07:56 Baso % (Auto) 0.4 % (0.0-1.8) 06/09/17 07:56 Lymph # 1.0 K/mm3 (1.2-5.4) L 06/09/17 07:56 [place] # 1.3 K/mm3 (0.0-0.8) H 06/09/17 07:56 Eos # 0.2 K/mm3 (0.0-0.4) 06/09/17 07:56 Baso # 0.1 K/mm3 (0.0-0.1) 06/09/17 07:56 Seg Neutrophils % 82.8 % (40.0-70.0) H 06/09/17 07:56 Seg Neutrophils # 12.2 K/mm3 (1.8-7.7) H 06/09/17 07:56 ESR > 140.0 mm/Hr (0-20) 06/08/17 06:05 PT 12.8 Sec. (12.2-14.9) 06/05/17 16:07 INR 0.92 (0.87-1.13) 06/05/17 16:07 VBG pH 7.323 (7.320-7.420) 06/05/17 16:00 Sodium 136 mmol/L (137-145) L 06/08/17 09:12 Potassium 3.9 mmol/L (3.6-5.0) 06/08/17 09:12 Chloride 100.4 mmol/L (98-107) 06/08/17 09:12 Carbon Dioxide 19 mmol/L (22-30) L 06/08/17 09:12 Anion Gap 21 mmol/L 06/08/17 09:12 BUN 21 mg/dL (7-17) H 06/08/17 09:12 Creatinine 2.3 mg/dL (0.7-1.2) H 06/08/17 09:12 Estimated GFR 29 ml/min 06/08/17 09:12 BUN/Creatinine Ratio 9 % 06/08/17 09:12 Glucose 199 mg/dL (65-100) H 06/08/17 09:12 POC Glucose 170 (70-105) H 06/10/17 09:11 Hemoglobin A1c 10.2 % (4-6) H 06/05/17 16:00 Lactic Acid 1.80 mmol/L (0.7-2.0) 06/05/17 23:47 Calcium 8.9 mg/dL (8.4-10.2) 06/08/17 09:12 Total Bilirubin < 0.20 mg/dL (0.1-1.2) 06/05/17 16:11 AST 14 units/L (5-40) 06/05/17 16:11 ALT 13 units/L (7-56) 06/05/17 16:11 Alkaline Phosphatase 165 units/L (35-129) H 06/05/17 16:11 C-Reactive Protein 24.20 mg/dL (0.00-1.30) H 06/08/17 06:05 Total Protein 7.8 g/dL (6.3-8.2) 06/05/17 16:11 Albumin 3.5 g/dL (3.9-5) L 06/05/17 16:11 Albumin/Globulin Ratio 0.8 % 06/05/17 16:11 HCG, Qual Negative (Negative) 06/09/17 19:54 Urine Color Straw (Yellow) 06/05/17 16:49 Urine Turbidity Clear (Clear) 06/05/17 16:49 Urine pH 5.0 (5.0-7.0) 06/05/17 16:49 Ur Specific [place] 1.017 (1.003-1.030) 06/05/17 16:49 Urine Protein 100 mg/dl mg/dL (Negative) 06/05/17 16:49 Urine Glucose (UA) >=500 mg/dL (Negative) 06/05/17 16:49 Urine Ketones Neg mg/dL (Negative) 06/05/17 16:49 Urine Blood Neg (Negative) 06/05/17 16:49 Urine Nitrite Neg (Negative) 06/05/17 16:49 Urine Bilirubin Neg (Negative) 06/05/17 16:49 Urine Urobilinogen < 2.0 mg/dL (<2.0) 06/05/17 16:49 Ur Leukocyte Esterase Neg (Negative) 06/05/17 16:49 Urine WBC (Auto) 1.0 /HPF (0.0-6.0) 06/05/17 16:49 Urine RBC (Auto) 2.0 /HPF (0.0-6.0) 06/05/17 16:49 U Epithel Cells (Auto) 2.0 /HPF (0-13.0) 06/05/17 16:49 Urine Bacteria (Auto) 1+ /HPF (Negative) 06/05/17 16:49 Urine Mucus Few /HPF 06/05/17 16:49 Blood Type O POSITIVE 06/07/17 16:03 Antibody Screen Negative 06/07/17 16:03 Crossmatch See Detail 06/07/17 16:03
[2017-06-10 12:47] LABS: Basophils # (Auto) 0.1 K/mm3 (0.0-0.1); Basophils % (Auto) 0.7 % (0.0-1.8); Eosinophils # (Auto) 0.2 K/mm3 (0.0-0.4); Eosinophils % (Auto) 1.6 % (0.0-4.3); Hematocrit 24.1 % (30.3-42.9); Hemoglobin 7.8 gm/dl (10.1-14.3); Lymphocytes % (Auto) 7.2 % (13.4-35.0); Mean Corpuscular HGB Conc 33 % (30-34); Mean Corpuscular Hemoglobin 26 pg (28-32); Mean Corpuscular Volume 79 fl (79-97); Monocytes # (Auto) 1.3 K/mm3 (0.0-0.8); Platelet Count 520 K/mm3 (140-440); Red Blood Count 3.04 M/mm3 (3.65-5.03); Red Cell Distribution Width 18.9 % (13.2-15.2)
[2017-06-10 13:14] LABS: Calcium 8.9 mg/dL (8.4-10.2)
[2017-06-10] MEDS: ZYVOX 600MG/300ML 600 MG/300 ML BAG IV SCH ×2 (13:33→23:57)
[2017-06-10] MEDS: SODIUM BICARBONATE PO SCH ×2 (14:36→23:59)
[2017-06-10] MEDS: SODIUM CHLORIDE FLUSH SYRINGE 10 ML IV SCH (14:38)
[2017-06-10] MEDS: MORPHINE IV PRN (14:38)
[2017-06-10] MEDS: cefTRIAXone 2 GM in NACL 0.9% 20 ML IV SCH (19:19)
[2017-06-10] MEDS: PEPCID PO SCH (23:59)
[2017-06-11] MEDS: FLEXERIL PO SCH ×4 (00:13→22:01)
[2017-06-11] MEDS: CHLORASEPTIC MM PRN ×2 (00:31→11:25)
[2017-06-11] MEDS: MORPHINE IV PRN (02:04)
[2017-06-11] MEDS: HumaLOG SUB-Q SCH ×4 (02:05→18:23)
[2017-06-11] MEDS: DAKIN'S FULL STRENGTH TP SCH ×3 (02:06→15:30)
--- NOTE | 2017-06-11 10:56 | Progress Note ---
Assessment and Plan Assessment: 1) Sepsis present on admission. Patient with fever, tachycardia, leukocytosis. Likely source right foot infection. -Leukocytosis - improved. 2) R heel ulcer, OM of postero-lateral calcaneous and multiloculated soft tissue abscess of postero-lateral heel extending from skin to calcaneous as per MRI. s/p I and R 06/10/17 -ESR and CRP elevated -Swab wound cx 06/06/17 with Group B strep and Streptococcus not group D. 3) Thrombocytosis. Likely reactive. 4) HARIKA. Creatinine improving. 5) IDDM 6) Penicillin allergy (swelling). Tolerating ceftriaxone Recommendations: -Will f/u surgical cx. -Asked micro lab to further ID Streptococcus not Group D reported in wound cx collected 06/06/17. -Continue ceftriaxone and linezolid. -Will adjust antibiotics based on culture results. -Monitor CBC, BMP. -Will follow up with you. -d/w pt, case management (pt w/o medical insurance). -Dr Kirkland will cover during the weekend. Rosina Saels MD Infectious Diseases Specialist [facility], [place] [facility] [phone] Subjective Date of service: 06/11/17 Interval history: Afebrile. Had R foot I and D yesterday. Has mild R foot pain. Has tolerated ceftriaxone well so far. Microbiology Blood cx 06/05/17 Negative Urine culture 06/05 skin armin Wound culture 06/06 Strep group B, Streptococcus not group D. Surgical cultures 06/10 pending. Antibiotics Linezolid 06/07- Ceftriaxone 06/09- Prior antibiotics IV vancomycin 06/05-06/07 Aztreonam 06/05 Objective - Exam Narrative Exam: General appearance: Pt in NAD, A&Ox3. Eyes: anicteric sclerae, moist conjunctivae; PERRLA. HENT: Atraumatic; oropharynx clear with moist mucous membranes and no mucosal ulcerations/no oral thrush; normal hard and soft palate. Normal external ears. Neck: Trachea midline; supple, no thyromegaly or lymphadenopathy Lungs: CTA, with normal respiratory effort and no intercostal retractions CV: S1,S2 Abdomen: +BS. Soft. NT/ND. Extremities: R foot with dressing. Skin: As above. Psych: Appropriate affect, alert and oriented to person, place and time. Neuro: alert and oriented x 3. Moving all extremities. Lines: PIV. - Constitutional Vitals: Vital Signs Temp Pulse Resp BP Pulse Ox 98.6 F 101 H 20 133/78 94 06/11/17 07:37 06/11/17 07:38 06/11/17 07:37 06/11/17 07:37 06/11/17 07:38 Temperature -Last 24 Hours Temperature 98.6 F Temperature 99.3 F Temperature 99.9 F Temperature 98.4 F - Labs CBC & Chem 7: 06/10/17 11:38 06/10/17 11:38 Labs: Abnormal lab results 06/10/17 06/10/17 06/10/17 Range/Units 11:38 11:38 11:59 WBC 14.3 H (4.5-11.0) K/mm3 RBC 3.04 L (3.65-5.03) M/mm3 Hgb 7.8 L (10.1-14.3) gm/dl Hct 24.1 L (30.3-42.9) % MCH 26 L (28-32) pg RDW 18.9 H (13.2-15.2) % Plt Count 520 H (140-440) K/mm3 Lymph % (Auto) 7.2 L (13.4-35.0) % [place] % (Auto) 9.0 H (0.0-7.3) % Lymph # 1.0 L (1.2-5.4) K/mm3 [place] # 1.3 H (0.0-0.8) K/mm3 Seg Neutrophils % 81.5 H (40.0-70.0) % Seg Neutrophils # 11.7 H (1.8-7.7) K/mm3 Sodium 134 L (137-145) mmol/L Carbon Dioxide 19 L (22-30) mmol/L Creatinine 1.8 H (0.7-1.2) mg/dL Glucose 134 H (65-100) mg/dL POC Glucose 151 H (70-105) 06/10/17 06/11/17 Range/Units 16:17 00:11 WBC (4.5-11.0) K/mm3 RBC (3.65-5.03) M/mm3 Hgb (10.1-14.3) gm/dl Hct (30.3-42.9) % MCH (28-32) pg RDW (13.2-15.2) % Plt Count (140-440) K/mm3 Lymph % (Auto) (13.4-35.0) % [place] % (Auto) (0.0-7.3) % Lymph # (1.2-5.4) K/mm3 [place] # (0.0-0.8) K/mm3 Seg Neutrophils % (40.0-70.0) % Seg Neutrophils # (1.8-7.7) K/mm3 Sodium (137-145) mmol/L Carbon Dioxide (22-30) mmol/L Creatinine (0.7-1.2) mg/dL Glucose (65-100) mg/dL POC Glucose 166 H 151 H (70-105)
[2017-06-11] MEDS: PEPCID PO SCH ×3 (11:23→21:56)
[2017-06-11] MEDS: APRESOLINE PO SCH ×3 (11:24→21:56)
[2017-06-11] MEDS: SODIUM BICARBONATE PO SCH ×3 (11:24→21:56)
[2017-06-11] MEDS: SODIUM CHLORIDE FLUSH SYRINGE 10 ML IV SCH ×2 (11:25)
[2017-06-11] MEDS: cefTRIAXone 2 GM in NACL 0.9% 20 ML IV SCH (11:30)
[2017-06-11] MEDS: ZYVOX 600MG/300ML 600 MG/300 ML BAG IV SCH (11:31)
[2017-06-11] MEDS: NORVASC PO SCH (11:32)
[2017-06-11] MEDS ORDERED: XANAX PO ONE (13:00)
--- NOTE | 2017-06-11 13:26 | Progress Note ---
Assessment and Plan Assessment and plan: Day 6, my first day with patient Ms. Garland is 36 woman with a history of hypertension, dm type 2 and CKD 3 who presented with right foot purulent drainage and hyperglycemia. She was found to have the following: MRI Right foot: 1. Osteomyelitis involving the posterolateral calcaneus. 2. A 3.5 x 2.0 x 2.3 cm multiloculated soft tissue abscess of the posterolateral heel extends from the skin to the calcaneus. 3. Moderate diffuse subcutaneous soft tissue edema. Sepsis from right foot infection IV antibiotics, IVF resuscitation, monitor uop q shift, wound cultures, blood cultures, serial lactic acid, Acidosis secondary to sepsis, treat sepsis, IVF resuscitation, serial lactic acid levels Right foot Osteomylitis and cellulitis continue abx, ID input appreciated, s/p debridement and deep cultures type 2 Dm uncontrolled continue Insulins Since patient couldn't afford Lantus, therefore she has been switched to 70/30 insulin ARF/CKD stage 3-4, vasomotor nephropathy, poa stable, at baseline Kidney function, avoid nephrotoxins DVT prophylaxis Current Visit: No Status: Acute Plan to address problem: scd to BLE Penicillin allergy (swelling): Tolerating ceftriaxone Anxiety disorder: trail of Xanax Dispo: home with abx and wound care when intraop cultures are finalized; uninsured, therefore, keep on 70/30 d/w ID, Dr. Seals, patient may need PICC line. They do not insert Picc lines over the weekend. Hold PICC line for now, awaiting final surgical wound cultures per Dr. Seals History Interval history: Patient was seen and examined. Follow-up on current diagnosis of right foot infection. Overnight uneventful. Patient denies any chest pain, shortness breath, nausea/vomiting or severe headaches. Imaging, nursing note, chart, labs and old chart reviewed. Discussed with patient. Hospitalist Physical - Physical exam Narrative exam: GEN: WDWN, NAD, AWAKE, ALERT, ORIENTATED 3 HEENT: NCAT, EOMI, PERRL with left eye deformity, OP Clear NECK: supple, no adenopathy, no thyromegaly, no JVD CVS/HEART: RRR, NORMAL S1S2, pulses present bilaterally CHEST/LUNGS: CTA B, Symmetrical chest expansion, good air entry bilaterally GI/Abdomen: soft, NTND, good bowel sounds, no guarding or rebound /Bladder: no suprapubic tenderness, no CVA or paraspinal tenderness EXT/Skin: draining wound on her right heel and lateral side of her right foot, surrounding edema and erythema MSK: FROM x 4 Neuro: CN 2-12 grossly intact, no new focal deficits Psych: Anxious - Constitutional Vitals: Temp Pulse Resp BP Pulse Ox 98.9 F 110 H 20 149/93 99 06/11/17 11:33 06/11/17 11:33 06/11/17 11:33 06/11/17 11:33 06/11/17 11:33 General appearance: Present: no acute distress, well-nourished Results - Labs CBC & Chem 7: 06/10/17 11:38 06/10/17 11:38 Labs: Laboratory Last Values WBC 14.3 K/mm3 (4.5-11.0) H 06/10/17 11:38 RBC 3.04 M/mm3 (3.65-5.03) L 06/10/17 11:38 Hgb 7.8 gm/dl (10.1-14.3) L 06/10/17 11:38 Hct 24.1 % (30.3-42.9) L 06/10/17 11:38 MCV 79 fl (79-97) 06/10/17 11:38 MCH 26 pg (28-32) L 06/10/17 11:38 MCHC 33 % (30-34) 06/10/17 11:38 RDW 18.9 % (13.2-15.2) H 06/10/17 11:38 Plt Count 520 K/mm3 (140-440) H 06/10/17 11:38 Lymph % (Auto) 7.2 % (13.4-35.0) L 06/10/17 11:38 [place] % (Auto) 9.0 % (0.0-7.3) H 06/10/17 11:38 Eos % (Auto) 1.6 % (0.0-4.3) 06/10/17 11:38 Baso % (Auto) 0.7 % (0.0-1.8) 06/10/17 11:38 Lymph # 1.0 K/mm3 (1.2-5.4) L 06/10/17 11:38 [place] # 1.3 K/mm3 (0.0-0.8) H 06/10/17 11:38 Eos # 0.2 K/mm3 (0.0-0.4) 06/10/17 11:38 Baso # 0.1 K/mm3 (0.0-0.1) 06/10/17 11:38 Seg Neutrophils % 81.5 % (40.0-70.0) H 06/10/17 11:38 Seg Neutrophils # 11.7 K/mm3 (1.8-7.7) H 06/10/17 11:38 ESR > 140.0 mm/Hr (0-20) 06/08/17 06:05 PT 12.8 Sec. (12.2-14.9) 06/05/17 16:07 INR 0.92 (0.87-1.13) 06/05/17 16:07 VBG pH 7.323 (7.320-7.420) 06/05/17 16:00 Sodium 134 mmol/L (137-145) L 06/10/17 11:38 Potassium 4.0 mmol/L (3.6-5.0) 06/10/17 11:38 Chloride 98.2 mmol/L (98-107) 06/10/17 11:38 Carbon Dioxide 19 mmol/L (22-30) L 06/10/17 11:38 Anion Gap 21 mmol/L 06/10/17 11:38 BUN 16 mg/dL (7-17) 06/10/17 11:38 Creatinine 1.8 mg/dL (0.7-1.2) H 06/10/17 11:38 Estimated GFR 38 ml/min 06/10/17 11:38 BUN/Creatinine Ratio 9 % 06/10/17 11:38 Glucose 134 mg/dL (65-100) H 06/10/17 11:38 POC Glucose 160 (70-105) H 06/11/17 11:37 Hemoglobin A1c 10.2 % (4-6) H 06/05/17 16:00 Lactic Acid 1.80 mmol/L (0.7-2.0) 06/05/17 23:47 Calcium 8.9 mg/dL (8.4-10.2) 06/10/17 11:38 Total Bilirubin < 0.20 mg/dL (0.1-1.2) 06/05/17 16:11 AST 14 units/L (5-40) 06/05/17 16:11 ALT 13 units/L (7-56) 06/05/17 16:11 Alkaline Phosphatase 165 units/L (35-129) H 06/05/17 16:11 C-Reactive Protein 24.20 mg/dL (0.00-1.30) H 06/08/17 06:05 Total Protein 7.8 g/dL (6.3-8.2) 06/05/17 16:11 Albumin 3.5 g/dL (3.9-5) L 06/05/17 16:11 Albumin/Globulin Ratio 0.8 % 06/05/17 16:11 HCG, Qual Negative (Negative) 06/09/17 19:54 Urine Color Straw (Yellow) 06/05/17 16:49 Urine Turbidity Clear (Clear) 06/05/17 16:49 Urine pH 5.0 (5.0-7.0) 06/05/17 16:49 Ur Specific [place] 1.017 (1.003-1.030) 06/05/17 16:49 Urine Protein 100 mg/dl mg/dL (Negative) 06/05/17 16:49 Urine Glucose (UA) >=500 mg/dL (Negative) 06/05/17 16:49 Urine Ketones Neg mg/dL (Negative) 06/05/17 16:49 Urine Blood Neg (Negative) 06/05/17 16:49 Urine Nitrite Neg (Negative) 06/05/17 16:49 Urine Bilirubin Neg (Negative) 06/05/17 16:49 Urine Urobilinogen < 2.0 mg/dL (<2.0) 06/05/17 16:49 Ur Leukocyte Esterase Neg (Negative) 06/05/17 16:49 Urine WBC (Auto) 1.0 /HPF (0.0-6.0) 06/05/17 16:49 Urine RBC (Auto) 2.0 /HPF (0.0-6.0) 06/05/17 16:49 U Epithel Cells (Auto) 2.0 /HPF (0-13.0) 06/05/17 16:49 Urine Bacteria (Auto) 1+ /HPF (Negative) 06/05/17 16:49 Urine Mucus Few /HPF 06/05/17 16:49 Blood Type O POSITIVE 06/07/17 16:03 Antibody Screen Negative 06/07/17 16:03 Crossmatch See Detail 06/07/17 16:03
[2017-06-11] MEDS: ZYVOX PO SCH (21:56)
[2017-06-11] MEDS: SODIUM CHLORIDE FLUSH SYRINGE 10 ML IV PRN (22:01)
[2017-06-12] MEDS: HumaLOG SUB-Q SCH ×4 (00:32→18:57)
[2017-06-12] MEDS: MORPHINE IV PRN ×2 (01:51→10:40)
[2017-06-12] MEDS: SODIUM CHLORIDE FLUSH SYRINGE 10 ML IV SCH ×3 (01:51→21:21)
[2017-06-12] MEDS: DAKIN'S FULL STRENGTH TP SCH ×4 (01:52→21:23)
[2017-06-12 06:13] LABS: Basophils % (Auto) 0.4 % (0.0-1.8); Eosinophils # (Auto) 0.4 K/mm3 (0.0-0.4); Eosinophils % (Auto) 3.2 % (0.0-4.3); Hematocrit 20.7 % (30.3-42.9); Hemoglobin 6.7 gm/dl (10.1-14.3); Lymphocytes # (Auto) 1.2 K/mm3 (1.2-5.4); Lymphocytes % (Auto) 10.6 % (13.4-35.0); Mean Corpuscular HGB Conc 33 % (30-34); Mean Corpuscular Volume 79 fl (79-97); Monocytes # (Auto) 0.9 K/mm3 (0.0-0.8); Monocytes % (Auto) 7.8 % (0.0-7.3); Platelet Count 529 K/mm3 (140-440); Red Blood Count 2.63 M/mm3 (3.65-5.03); Red Cell Distribution Width 18.9 % (13.2-15.2)
[2017-06-12 06:14] LABS: Mean Corpuscular Hemoglobin 26 pg (28-32)
[2017-06-12 06:32] LABS: Calcium 8.4 mg/dL (8.4-10.2)
[2017-06-12] MEDS: NORVASC PO SCH ×2 (07:58→15:02)
[2017-06-12] MEDS: FLEXERIL PO SCH ×3 (08:14→21:19)
[2017-06-12] MEDS: APRESOLINE PO SCH ×3 (08:14→21:19)
[2017-06-12] MEDS: SODIUM BICARBONATE PO SCH ×3 (08:14→21:18)
[2017-06-12] MEDS ORDERED: NACL 0.9% 500 ML 500 ML IV ONE (09:31)
[2017-06-12] MEDS: PEPCID PO SCH ×2 (10:29→21:19)
[2017-06-12] MEDS: cefTRIAXone 2 GM in NACL 0.9% 20 ML IV SCH (10:29)
[2017-06-12] MEDS: ZYVOX PO SCH ×2 (10:29→21:19)
--- NOTE | 2017-06-12 11:22 | Progress Note ---
Assessment and Plan Assessment and plan: Ms. Garland is 36 woman with a history of hypertension, dm type 2 and CKD 3 who presented with right foot purulent drainage and hyperglycemia. She was found to have the following: MRI Right foot: 1. Osteomyelitis involving the posterolateral calcaneus. 2. A 3.5 x 2.0 x 2.3 cm multiloculated soft tissue abscess of the posterolateral heel extends from the skin to the calcaneus. 3. Moderate diffuse subcutaneous soft tissue edema. 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 Seals, patient may need PICC line. They do not insert Picc lines over the weekend. Hold PICC line for now, awaiting final surgical wound cultures per Dr. Seals Dispo: home with abx and wound care when intraop cultures are finalized; uninsured, therefore, keep on 70/30 06/12/17: drop in hct, again, will transfuse 1 unit, order stool for FOBT, repeat cbc in am. Hypokalemia, will give potassium supplement and repeat levels in am. Also, Cr increase slightly to 2.0, will repeat in am History Interval history: Patient was seen and examined. Follow-up on current diagnosis of right foot infection. Overnight uneventful. Patient denies any chest pain, shortness breath, nausea/vomiting or severe headaches. Imaging, nursing note, chart, labs and old chart reviewed. Discussed with patient. Hospitalist Physical - Physical exam Narrative exam: GEN: WDWN, NAD, AWAKE, ALERT, ORIENTATED 3 HEENT: NCAT, EOMI, PERRL with left eye deformity, OP Clear NECK: supple, no adenopathy, no thyromegaly, no JVD CVS/HEART: RRR, NORMAL S1S2, pulses present bilaterally CHEST/LUNGS: CTA B, Symmetrical chest expansion, good air entry bilaterally GI/Abdomen: soft, NTND, good bowel sounds, no guarding or rebound /Bladder: no suprapubic tenderness, no CVA or paraspinal tenderness EXT/Skin: draining wound on her right heel and lateral side of her right foot, surrounding edema and erythema MSK: FROM x 4 Neuro: CN 2-12 grossly intact, no new focal deficits Psych: Anxious - Constitutional Vitals: Temp Pulse Resp BP Pulse Ox 98.4 F 100 H 16 124/74 95 06/12/17 07:55 06/12/17 07:55 06/12/17 07:55 06/12/17 07:55 06/12/17 07:55 General appearance: Present: no acute distress, well-nourished Results - Labs CBC & Chem 7: 06/12/17 05:44 06/12/17 05:44 Labs: Laboratory Last Values WBC 11.4 K/mm3 (4.5-11.0) H 06/12/17 05:44 RBC 2.63 M/mm3 (3.65-5.03) L 06/12/17 05:44 Hgb 6.7 gm/dl (10.1-14.3) L 06/12/17 05:44 Hct 20.7 % (30.3-42.9) L 06/12/17 05:44 MCV 79 fl (79-97) 06/12/17 05:44 MCH 26 pg (28-32) L 06/12/17 05:44 MCHC 33 % (30-34) 06/12/17 05:44 RDW 18.9 % (13.2-15.2) H 06/12/17 05:44 Plt Count 529 K/mm3 (140-440) H 06/12/17 05:44 Lymph % (Auto) 10.6 % (13.4-35.0) L 06/12/17 05:44 [place] % (Auto) 7.8 % (0.0-7.3) H 06/12/17 05:44 Eos % (Auto) 3.2 % (0.0-4.3) 06/12/17 05:44 Baso % (Auto) 0.4 % (0.0-1.8) 06/12/17 05:44 Lymph # 1.2 K/mm3 (1.2-5.4) 06/12/17 05:44 [place] # 0.9 K/mm3 (0.0-0.8) H 06/12/17 05:44 Eos # 0.4 K/mm3 (0.0-0.4) 06/12/17 05:44 Baso # 0.0 K/mm3 (0.0-0.1) 06/12/17 05:44 Seg Neutrophils % 78.0 % (40.0-70.0) H 06/12/17 05:44 Seg Neutrophils # 8.9 K/mm3 (1.8-7.7) H 06/12/17 05:44 ESR > 140.0 mm/Hr (0-20) 06/08/17 06:05 PT 12.8 Sec. (12.2-14.9) 06/05/17 16:07 INR 0.92 (0.87-1.13) 06/05/17 16:07 VBG pH 7.323 (7.320-7.420) 06/05/17 16:00 Sodium 139 mmol/L (137-145) 06/12/17 05:44 Potassium 3.5 mmol/L (3.6-5.0) L 06/12/17 05:44 Chloride 99.3 mmol/L (98-107) 06/12/17 05:44 Carbon Dioxide 23 mmol/L (22-30) 06/12/17 05:44 Anion Gap 20 mmol/L 06/12/17 05:44 BUN 12 mg/dL (7-17) 06/12/17 05:44 Creatinine 2.0 mg/dL (0.7-1.2) H 06/12/17 05:44 Estimated GFR 34 ml/min 06/12/17 05:44 BUN/Creatinine Ratio 6 % 06/12/17 05:44 Glucose 129 mg/dL (65-100) H 06/12/17 05:44 POC Glucose 138 (70-105) H 06/12/17 05:46 Hemoglobin A1c 10.2 % (4-6) H 06/05/17 16:00 Lactic Acid 1.80 mmol/L (0.7-2.0) 06/05/17 23:47 Calcium 8.4 mg/dL (8.4-10.2) 06/12/17 05:44 Total Bilirubin < 0.20 mg/dL (0.1-1.2) 06/05/17 16:11 AST 14 units/L (5-40) 06/05/17 16:11 ALT 13 units/L (7-56) 06/05/17 16:11 Alkaline Phosphatase 165 units/L (35-129) H 06/05/17 16:11 C-Reactive Protein 24.20 mg/dL (0.00-1.30) H 06/08/17 06:05 Total Protein 7.8 g/dL (6.3-8.2) 06/05/17 16:11 Albumin 3.5 g/dL (3.9-5) L 06/05/17 16:11 Albumin/Globulin Ratio 0.8 % 06/05/17 16:11 HCG, Qual Negative (Negative) 06/09/17 19:54 Urine Color Straw (Yellow) 06/05/17 16:49 Urine Turbidity Clear (Clear) 06/05/17 16:49 Urine pH 5.0 (5.0-7.0) 06/05/17 16:49 Ur Specific [place] 1.017 (1.003-1.030) 06/05/17 16:49 Urine Protein 100 mg/dl mg/dL (Negative) 06/05/17 16:49 Urine Glucose (UA) >=500 mg/dL (Negative) 06/05/17 16:49 Urine Ketones Neg mg/dL (Negative) 06/05/17 16:49 Urine Blood Neg (Negative) 06/05/17 16:49 Urine Nitrite Neg (Negative) 06/05/17 16:49 Urine Bilirubin Neg (Negative) 06/05/17 16:49 Urine Urobilinogen < 2.0 mg/dL (<2.0) 06/05/17 16:49 Ur Leukocyte Esterase Neg (Negative) 06/05/17 16:49 Urine WBC (Auto) 1.0 /HPF (0.0-6.0) 06/05/17 16:49 Urine RBC (Auto) 2.0 /HPF (0.0-6.0) 06/05/17 16:49 U Epithel Cells (Auto) 2.0 /HPF (0-13.0) 06/05/17 16:49 Urine Bacteria (Auto) 1+ /HPF (Negative) 06/05/17 16:49 Urine Mucus Few /HPF 06/05/17 16:49 Blood Type O POSITIVE 06/07/17 16:03 Antibody Screen Negative 06/07/17 16:03 Crossmatch See Detail 06/07/17 16:03
[2017-06-12] MEDS ORDERED: XANAX PO PRN (11:23)
[2017-06-12] MEDS ORDERED: NACL 0.9% 500 ML 500 ML ONE (12:38)
[2017-06-12] MEDS: PERCOCET 5/325 PO PRN (21:18)
[2017-06-13] MEDS: HumaLOG SUB-Q SCH ×4 (01:25→17:08)
[2017-06-13 06:27] LABS: Hemoglobin 8.4 gm/dl (10.1-14.3); Red Blood Count 3.21 M/mm3 (3.65-5.03)
[2017-06-13 06:28] LABS: Hematocrit 25.4 % (30.3-42.9); Red Cell Distribution Width 18.3 % (13.2-15.2)
[2017-06-13 06:38] LABS: Calcium 9.1 mg/dL (8.4-10.2)
[2017-06-13] MEDS: SODIUM BICARBONATE PO SCH ×3 (09:12→20:59)
[2017-06-13] MEDS: PEPCID PO SCH ×2 (09:12→21:01)
[2017-06-13] MEDS: APRESOLINE PO SCH ×3 (09:12→20:59)
[2017-06-13] MEDS: NORVASC PO SCH (09:12)
[2017-06-13] MEDS: FLEXERIL PO SCH ×3 (09:13→20:58)
[2017-06-13] MEDS: cefTRIAXone 2 GM in NACL 0.9% 20 ML IV SCH (09:14)
[2017-06-13] MEDS: SODIUM CHLORIDE FLUSH SYRINGE 10 ML IV SCH ×2 (09:15→21:01)
[2017-06-13] MEDS: ZYVOX PO SCH ×2 (09:25→21:01)
[2017-06-13] MEDS: DAKIN'S FULL STRENGTH TP SCH ×2 (09:25→21:02)
--- NOTE | 2017-06-13 11:43 | Progress Note ---
Assessment and Plan Assessment and plan: Ms. Garland is 36 woman with a history of hypertension, dm type 2 and CKD 3 who presented with right foot purulent drainage and hyperglycemia. She was found to have the following: MRI Right foot: 1. Osteomyelitis involving the posterolateral calcaneus. 2. A 3.5 x 2.0 x 2.3 cm multiloculated soft tissue abscess of the posterolateral heel extends from the skin to the calcaneus. 3. Moderate diffuse subcutaneous soft tissue edema. 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 Seals, patient may need PICC line. They do not insert Picc lines over the weekend. Hold PICC line for now, awaiting final surgical wound cultures per Dr. Seals Dispo: home with abx and wound care when intraop cultures are finalized; uninsured, therefore, keep on 70/30 06/12/17: drop in hct, again, will transfuse 1 unit, order stool for FOBT, repeat cbc in am. Hypokalemia, will give potassium supplement and repeat levels in am. Also, Cr increase slightly to 2.0, will repeat in am, lost iv access after blood transfusion but was re-established. 06/13/17: hct improved, pt had extensive Gi workup in the past, most likely Acute blood loss anemia from menorrhagia with fibroids which were small in the past, she also had another menstrual cycle (not suppose to come) couple of days ago. She was advised to see events administrative assistant but lost insurance. History Interval history: Patient was seen and examined. Follow-up on current diagnosis of right foot infection. Overnight uneventful. Patient denies any chest pain, shortness breath, nausea/vomiting or severe headaches. Imaging, nursing note, chart, labs and old chart reviewed. Discussed with patient. Hospitalist Physical - Physical exam Narrative exam: GEN: WDWN, NAD, AWAKE, ALERT, ORIENTATED 3 HEENT: NCAT, EOMI, PERRL with left eye deformity, OP Clear NECK: supple, no adenopathy, no thyromegaly, no JVD CVS/HEART: RRR, NORMAL S1S2, pulses present bilaterally CHEST/LUNGS: CTA B, Symmetrical chest expansion, good air entry bilaterally GI/Abdomen: soft, NTND, good bowel sounds, no guarding or rebound /Bladder: no suprapubic tenderness, no CVA or paraspinal tenderness EXT/Skin: draining wound on her right heel and lateral side of her right foot, surrounding edema and erythema MSK: FROM x 4 Neuro: CN 2-12 grossly intact, no new focal deficits Psych: Anxious - Constitutional Vitals: Temp Pulse Resp BP Pulse Ox 98.4 F 100 H 16 128/73 96 06/13/17 07:57 06/13/17 07:57 06/13/17 07:57 06/13/17 09:12 06/13/17 07:57 General appearance: Present: no acute distress, well-nourished Results - Labs CBC & Chem 7: 06/13/17 05:20 06/13/17 05:20 Labs: Laboratory Last Values WBC 10.5 K/mm3 (4.5-11.0) 06/13/17 05:20 RBC 3.21 M/mm3 (3.65-5.03) L 06/13/17 05:20 Hgb 8.4 gm/dl (10.1-14.3) L 06/13/17 05:20 Hct 25.4 % (30.3-42.9) L 06/13/17 05:20 MCV 79 fl (79-97) 06/13/17 05:20 MCH 26 pg (28-32) L 06/13/17 05:20 MCHC 33 % (30-34) 06/13/17 05:20 RDW 18.3 % (13.2-15.2) H 06/13/17 05:20 Plt Count 587 K/mm3 (140-440) H 06/13/17 05:20 Lymph % (Auto) 10.6 % (13.4-35.0) L 06/12/17 05:44 [place] % (Auto) 7.8 % (0.0-7.3) H 06/12/17 05:44 Eos % (Auto) 3.2 % (0.0-4.3) 06/12/17 05:44 Baso % (Auto) 0.4 % (0.0-1.8) 06/12/17 05:44 Lymph # 1.2 K/mm3 (1.2-5.4) 06/12/17 05:44 [place] # 0.9 K/mm3 (0.0-0.8) H 06/12/17 05:44 Eos # 0.4 K/mm3 (0.0-0.4) 06/12/17 05:44 Baso # 0.0 K/mm3 (0.0-0.1) 06/12/17 05:44 Seg Neutrophils % 78.0 % (40.0-70.0) H 06/12/17 05:44 Seg Neutrophils # 8.9 K/mm3 (1.8-7.7) H 06/12/17 05:44 ESR > 140.0 mm/Hr (0-20) 06/08/17 06:05 PT 12.8 Sec. (12.2-14.9) 06/05/17 16:07 INR 0.92 (0.87-1.13) 06/05/17 16:07 VBG pH 7.323 (7.320-7.420) 06/05/17 16:00 Sodium 138 mmol/L (137-145) 06/13/17 05:20 Potassium 3.7 mmol/L (3.6-5.0) 06/13/17 05:20 Chloride 99.9 mmol/L (98-107) 06/13/17 05:20 Carbon Dioxide 24 mmol/L (22-30) 06/13/17 05:20 Anion Gap 18 mmol/L 06/13/17 05:20 BUN 13 mg/dL (7-17) 06/13/17 05:20 Creatinine 1.9 mg/dL (0.7-1.2) H 06/13/17 05:20 Estimated GFR 36 ml/min 06/13/17 05:20 BUN/Creatinine Ratio 7 % 06/13/17 05:20 Glucose 116 mg/dL (65-100) H 06/13/17 05:20 POC Glucose 181 (70-105) H 06/13/17 11:20 Hemoglobin A1c 10.2 % (4-6) H 06/05/17 16:00 Lactic Acid 1.80 mmol/L (0.7-2.0) 06/05/17 23:47 Calcium 9.1 mg/dL (8.4-10.2) 06/13/17 05:20 Magnesium 2.00 mg/dL (1.7-2.3) 06/13/17 05:20 Total Bilirubin < 0.20 mg/dL (0.1-1.2) 06/05/17 16:11 AST 14 units/L (5-40) 06/05/17 16:11 ALT 13 units/L (7-56) 06/05/17 16:11 Alkaline Phosphatase 165 units/L (35-129) H 06/05/17 16:11 C-Reactive Protein 24.20 mg/dL (0.00-1.30) H 06/08/17 06:05 Total Protein 7.8 g/dL (6.3-8.2) 06/05/17 16:11 Albumin 3.5 g/dL (3.9-5) L 06/05/17 16:11 Albumin/Globulin Ratio 0.8 % 06/05/17 16:11 HCG, Qual Negative (Negative) 06/09/17 19:54 Urine Color Straw (Yellow) 06/05/17 16:49 Urine Turbidity Clear (Clear) 06/05/17 16:49 Urine pH 5.0 (5.0-7.0) 06/05/17 16:49 Ur Specific [place] 1.017 (1.003-1.030) 06/05/17 16:49 Urine Protein 100 mg/dl mg/dL (Negative) 06/05/17 16:49 Urine Glucose (UA) >=500 mg/dL (Negative) 06/05/17 16:49 Urine Ketones Neg mg/dL (Negative) 06/05/17 16:49 Urine Blood Neg (Negative) 06/05/17 16:49 Urine Nitrite Neg (Negative) 06/05/17 16:49 Urine Bilirubin Neg (Negative) 06/05/17 16:49 Urine Urobilinogen < 2.0 mg/dL (<2.0) 06/05/17 16:49 Ur Leukocyte Esterase Neg (Negative) 06/05/17 16:49 Urine WBC (Auto) 1.0 /HPF (0.0-6.0) 06/05/17 16:49 Urine RBC (Auto) 2.0 /HPF (0.0-6.0) 06/05/17 16:49 U Epithel Cells (Auto) 2.0 /HPF (0-13.0) 06/05/17 16:49 Urine Bacteria (Auto) 1+ /HPF (Negative) 06/05/17 16:49 Urine Mucus Few /HPF 06/05/17 16:49 Blood Type O POSITIVE 06/12/17 10:27 Antibody Screen Negative 06/12/17 10:27 Crossmatch See Detail 06/12/17 10:27
--- NOTE | 2017-06-13 15:28 | Progress Note ---
Assessment and Plan Assessment: 1) Sepsis:better. Likely source right foot infection. 2) Right heel ulcer, OM of postero-lateral calcaneous and multiloculated soft tissue abscess of postero-lateral heel extending from skin to calcaneous as per MRI. s/p I and R 06/10/17 -ESR and CRP elevated -Swab wound cx 06/06/17 with Group B strep and Streptococcus not group D. -S/P OR I + D on 06/11 3) Thrombocytosis. Likely reactive. 4) HARIKA. Creatinine improving. 5) IDDM 6) Penicillin allergy (swelling). Tolerating ceftriaxone 7) non insurance status Recommendations: -Will f/u surgical cx. -Asked micro lab to further ID Streptococcus not Group D reported in wound cx collected 06/06/17. -Continue ceftriaxone -stop linezolid - no evidence of MRSA -upon discharge will do ceftriaxone 2 g IV q day total 6 weeks until 07/22/17 for right foot osteomyelitis. Will send orders to Administration/Dr Macias. Shanelle Kirkland MD Infectious Diseases Specialist [facility] ([facility]) M [phone] Subjective Date of service: 06/13/17 Principal diagnosis: right foot osteomyelitis Interval history: Feels good no fever. Microbiology Blood cx 06/05/17 Negative Urine culture 06/05 skin armin Wound culture 06/06 Strep group B, Streptococcus not group D. Surgical cultures 06/10 pending. Antibiotics Linezolid 06/07- Ceftriaxone 06/09- Prior antibiotics IV vancomycin 06/05-06/07 Aztreonam 06/05 Objective - Exam Narrative Exam: General appearance: Pt in NAD, A&Ox3. Eyes: anicteric sclerae, moist conjunctivae; PERRLA. HENT: Atraumatic; oropharynx clear with moist mucous membranes and no mucosal ulcerations/no oral thrush; normal hard and soft palate. Normal external ears. Neck: Trachea midline; supple, no thyromegaly or lymphadenopathy Lungs: CTA, with normal respiratory effort and no intercostal retractions CV: S1,S2 Abdomen: +BS. Soft. NT/ND. Extremities: R foot with dressing. Skin: As above. Psych: Appropriate affect, alert and oriented to person, place and time. Neuro: alert and oriented x 3. Moving all extremities. Lines: PIV. - Constitutional Vitals: Vital Signs Temp Pulse Resp BP Pulse Ox 97.9 F 100 H 18 131/76 95 06/13/17 13:28 06/13/17 13:28 06/13/17 13:28 06/13/17 13:33 06/13/17 13:28 Temperature -Last 24 Hours Temperature 97.9 F Temperature 98.4 F Temperature 98.0 F - Labs CBC & Chem 7: 06/13/17 05:20 06/13/17 05:20 Labs: Abnormal lab results 06/12/17 06/12/17 06/13/17 Range/Units 12:12 17:10 05:20 RBC 3.21 L (3.65-5.03) M/mm3 Hgb 8.4 L (10.1-14.3) gm/dl Hct 25.4 L (30.3-42.9) % MCH 26 L (28-32) pg RDW 18.3 H (13.2-15.2) % Plt Count 587 H (140-440) K/mm3 Creatinine (0.7-1.2) mg/dL Glucose (65-100) mg/dL POC Glucose 115 H 156 H (70-105) 06/13/17 06/13/17 06/13/17 Range/Units 05:20 06:26 11:20 RBC (3.65-5.03) M/mm3 Hgb (10.1-14.3) gm/dl Hct (30.3-42.9) % MCH (28-32) pg RDW (13.2-15.2) % Plt Count (140-440) K/mm3 Creatinine 1.9 H (0.7-1.2) mg/dL Glucose 116 H (65-100) mg/dL POC Glucose 142 H 181 H (70-105)
[2017-06-13] MEDS: PERCOCET 5/325 PO PRN (22:05)
[2017-06-14] MEDS: MORPHINE IV PRN ×3 (00:15→23:43)
[2017-06-14] MEDS: HumaLOG SUB-Q SCH ×4 (00:20→18:00)
[2017-06-14 06:49] LABS: Hematocrit 24.8 % (30.3-42.9); Hemoglobin 8.2 gm/dl (10.1-14.3); Mean Corpuscular HGB Conc 33 % (30-34); Mean Corpuscular Hemoglobin 26 pg (28-32); Mean Corpuscular Volume 79 fl (79-97); Platelet Count 598 K/mm3 (140-440); Red Blood Count 3.14 M/mm3 (3.65-5.03); Red Cell Distribution Width 18.2 % (13.2-15.2)
[2017-06-14 07:10] LABS: Calcium 9.1 mg/dL (8.4-10.2)
[2017-06-14] MEDS: SODIUM BICARBONATE PO SCH ×3 (09:49→21:05)
[2017-06-14] MEDS: APRESOLINE PO SCH ×3 (09:49→21:05)
[2017-06-14] MEDS: PEPCID PO SCH ×2 (09:49→21:12)
[2017-06-14] MEDS: FLEXERIL PO SCH ×3 (09:50→21:05)
[2017-06-14] MEDS: NORVASC PO SCH (09:50)
[2017-06-14] MEDS: DAKIN'S FULL STRENGTH TP SCH ×2 (09:50→21:06)
--- NOTE | 2017-06-14 11:39 | Progress Note ---
Assessment and Plan Assessment and plan: Ms. Garland is 36 woman with a history of hypertension, dm type 2 and CKD 3 who presented with right foot purulent drainage and hyperglycemia. She was found to have the following: MRI Right foot: 1. Osteomyelitis involving the posterolateral calcaneus. 2. A 3.5 x 2.0 x 2.3 cm multiloculated soft tissue abscess of the posterolateral heel extends from the skin to the calcaneus. 3. Moderate diffuse subcutaneous soft tissue edema. 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 Seals, patient may need PICC line. They do not insert Picc lines over the weekend. Hold PICC line for now, awaiting final surgical wound cultures per Dr. Seals Dispo: home with abx and wound care when intraop cultures are finalized; uninsured, therefore, keep on 70/30 06/12/17: drop in hct, again, will transfuse 1 unit, order stool for FOBT, repeat cbc in am. Hypokalemia, will give potassium supplement and repeat levels in am. Also, Cr increase slightly to 2.0, will repeat in am, lost iv access after blood transfusion but was re-established. 06/13/17: hct improved, pt had extensive Gi workup in the past, most likely Acute blood loss anemia from menorrhagia with fibroids which were small in the past, she also had another menstrual cycle (not suppose to come) couple of days ago. She was advised to see senior materials planner but lost insurance. 06/14/17: awaiting clearance from ID and case management. h/h stable and Cr improved, down to 1.8 from 2.0 History Interval history: Patient was seen and examined. Follow-up on current diagnosis of right foot infection. Overnight uneventful. Patient denies any chest pain, shortness breath, nausea/vomiting or severe headaches. Imaging, nursing note, chart, labs and old chart reviewed. Discussed with patient. Hospitalist Physical - Physical exam Narrative exam: GEN: WDWN, NAD, AWAKE, ALERT, ORIENTATED 3 HEENT: NCAT, EOMI, PERRL with left eye deformity, OP Clear NECK: supple, no adenopathy, no thyromegaly, no JVD CVS/HEART: RRR, NORMAL S1S2, pulses present bilaterally CHEST/LUNGS: CTA B, Symmetrical chest expansion, good air entry bilaterally GI/Abdomen: soft, NTND, good bowel sounds, no guarding or rebound /Bladder: no suprapubic tenderness, no CVA or paraspinal tenderness EXT/Skin: wound on her right heel and lateral side of her right foot, surrounding edema and erythema MSK: FROM x 4 Neuro: CN 2-12 grossly intact, no new focal deficits Psych: Anxious - Constitutional Vitals: Temp Pulse Resp BP Pulse Ox 98.3 F 99 H 16 134/78 93 06/14/17 07:51 06/14/17 07:51 06/14/17 07:51 06/14/17 07:51 06/14/17 07:51 General appearance: Present: no acute distress, well-nourished Results - Labs CBC & Chem 7: 06/14/17 06:00 06/14/17 06:00 Labs: Laboratory Last Values WBC 10.9 K/mm3 (4.5-11.0) 06/14/17 06:00 RBC 3.14 M/mm3 (3.65-5.03) L 06/14/17 06:00 Hgb 8.2 gm/dl (10.1-14.3) L 06/14/17 06:00 Hct 24.8 % (30.3-42.9) L 06/14/17 06:00 MCV 79 fl (79-97) 06/14/17 06:00 MCH 26 pg (28-32) L 06/14/17 06:00 MCHC 33 % (30-34) 06/14/17 06:00 RDW 18.2 % (13.2-15.2) H 06/14/17 06:00 Plt Count 598 K/mm3 (140-440) H 06/14/17 06:00 Lymph % (Auto) 10.6 % (13.4-35.0) L 06/12/17 05:44 [place] % (Auto) 7.8 % (0.0-7.3) H 06/12/17 05:44 Eos % (Auto) 3.2 % (0.0-4.3) 06/12/17 05:44 Baso % (Auto) 0.4 % (0.0-1.8) 06/12/17 05:44 Lymph # 1.2 K/mm3 (1.2-5.4) 06/12/17 05:44 [place] # 0.9 K/mm3 (0.0-0.8) H 06/12/17 05:44 Eos # 0.4 K/mm3 (0.0-0.4) 06/12/17 05:44 Baso # 0.0 K/mm3 (0.0-0.1) 06/12/17 05:44 Seg Neutrophils % 78.0 % (40.0-70.0) H 06/12/17 05:44 Seg Neutrophils # 8.9 K/mm3 (1.8-7.7) H 06/12/17 05:44 ESR > 140.0 mm/Hr (0-20) 06/08/17 06:05 PT 12.8 Sec. (12.2-14.9) 06/05/17 16:07 INR 0.92 (0.87-1.13) 06/05/17 16:07 VBG pH 7.323 (7.320-7.420) 06/05/17 16:00 Sodium 141 mmol/L (137-145) 06/14/17 06:00 Potassium 3.6 mmol/L (3.6-5.0) 06/14/17 06:00 Chloride 101.9 mmol/L (98-107) 06/14/17 06:00 Carbon Dioxide 24 mmol/L (22-30) 06/14/17 06:00 Anion Gap 19 mmol/L 06/14/17 06:00 BUN 15 mg/dL (7-17) 06/14/17 06:00 Creatinine 1.8 mg/dL (0.7-1.2) H 06/14/17 06:00 Estimated GFR 38 ml/min 06/14/17 06:00 BUN/Creatinine Ratio 8 % 06/14/17 06:00 Glucose 154 mg/dL (65-100) H 06/14/17 06:00 POC Glucose 171 (70-105) H 06/14/17 06:21 Hemoglobin A1c 10.2 % (4-6) H 06/05/17 16:00 Lactic Acid 1.80 mmol/L (0.7-2.0) 06/05/17 23:47 Calcium 9.1 mg/dL (8.4-10.2) 06/14/17 06:00 Magnesium 2.00 mg/dL (1.7-2.3) 06/13/17 05:20 Total Bilirubin < 0.20 mg/dL (0.1-1.2) 06/05/17 16:11 AST 14 units/L (5-40) 06/05/17 16:11 ALT 13 units/L (7-56) 06/05/17 16:11 Alkaline Phosphatase 165 units/L (35-129) H 06/05/17 16:11 C-Reactive Protein 24.20 mg/dL (0.00-1.30) H 06/08/17 06:05 Total Protein 7.8 g/dL (6.3-8.2) 06/05/17 16:11 Albumin 3.5 g/dL (3.9-5) L 06/05/17 16:11 Albumin/Globulin Ratio 0.8 % 06/05/17 16:11 HCG, Qual Negative (Negative) 06/09/17 19:54 Urine Color Straw (Yellow) 06/05/17 16:49 Urine Turbidity Clear (Clear) 06/05/17 16:49 Urine pH 5.0 (5.0-7.0) 06/05/17 16:49 Ur Specific [place] 1.017 (1.003-1.030) 06/05/17 16:49 Urine Protein 100 mg/dl mg/dL (Negative) 06/05/17 16:49 Urine Glucose (UA) >=500 mg/dL (Negative) 06/05/17 16:49 Urine Ketones Neg mg/dL (Negative) 06/05/17 16:49 Urine Blood Neg (Negative) 06/05/17 16:49 Urine Nitrite Neg (Negative) 06/05/17 16:49 Urine Bilirubin Neg (Negative) 06/05/17 16:49 Urine Urobilinogen < 2.0 mg/dL (<2.0) 06/05/17 16:49 Ur Leukocyte Esterase Neg (Negative) 06/05/17 16:49 Urine WBC (Auto) 1.0 /HPF (0.0-6.0) 06/05/17 16:49 Urine RBC (Auto) 2.0 /HPF (0.0-6.0) 06/05/17 16:49 U Epithel Cells (Auto) 2.0 /HPF (0-13.0) 06/05/17 16:49 Urine Bacteria (Auto) 1+ /HPF (Negative) 06/05/17 16:49 Urine Mucus Few /HPF 06/05/17 16:49 Blood Type O POSITIVE 06/12/17 10:27 Antibody Screen Negative 06/12/17 10:27 Crossmatch See Detail 06/12/17 10:27
[2017-06-14] MEDS: cefTRIAXone 2 GM in NACL 0.9% 20 ML IV SCH (12:11)
[2017-06-14] MEDS: SODIUM CHLORIDE FLUSH SYRINGE 10 ML IV SCH ×2 (12:12→21:06)
--- NOTE | 2017-06-14 14:34 | Progress Note ---
Assessment and Plan Assessment: 1) Sepsis:better. Likely source right foot infection. 2) Right heel ulcer, OM of postero-lateral calcaneous and multiloculated soft tissue abscess of postero-lateral heel extending from skin to calcaneous as per MRI. s/p I and R 06/10/17 -ESR and CRP elevated -Swab wound cx 06/06/17 with Group B strep and Streptococcus not group D. -S/P OR I + D on 06/11 cx Group B strep and Streptococcus not group D. 3) Thrombocytosis. Likely reactive. 4) HARIKA. Creatinine improving. 5) IDDM 6) Penicillin allergy (swelling). Tolerating ceftriaxone 7) non insurance status Recommendations: -Continue ceftriaxone -upon discharge will do ceftriaxone 2 g IV q day total 6 weeks until 07/22/17 for right foot osteomyelitis. Will send orders to Administration/Dr Macias. Will sign off Shanelle Kirkland MD Infectious Diseases Specialist [facility] ([facility]) M [phone] Subjective Date of service: 06/14/17 Principal diagnosis: right foot osteomyelitis Interval history: Feels good no complaints. Microbiology Blood cx 06/05/17 Negative Urine culture 06/05 skin armin Wound culture 06/06 Strep group B, Streptococcus not group D. Surgical cultures 06/10 Strep group B, Streptococcus not group D. Antibiotics Ceftriaxone 06/09- Prior antibiotics IV vancomycin 06/05-06/07 Aztreonam 06/05 Linezolid 06/07- Objective - Exam Narrative Exam: General appearance: Pt in NAD, A&Ox3. Eyes: anicteric sclerae, moist conjunctivae; PERRLA. HENT: Atraumatic; oropharynx clear with moist mucous membranes and no mucosal ulcerations/no oral thrush; normal hard and soft palate. Normal external ears. Neck: Trachea midline; supple, no thyromegaly or lymphadenopathy Lungs: CTA, with normal respiratory effort and no intercostal retractions CV: S1,S2 Abdomen: +BS. Soft. NT/ND. Extremities: R foot with dressing. Skin: As above. Psych: Appropriate affect, alert and oriented to person, place and time. Neuro: alert and oriented x 3. Moving all extremities. Lines: PIV. - Constitutional Vitals: Vital Signs Temp Pulse Resp BP Pulse Ox 98.3 F 99 H 16 134/78 93 06/14/17 07:51 06/14/17 07:51 06/14/17 07:51 06/14/17 07:51 06/14/17 07:51 Temperature -Last 24 Hours Temperature 98.3 F Temperature 98.2 F Temperature 97.4 F Temperature 98.4 F Temperature 98.2 F - Labs CBC & Chem 7: 06/14/17 06:00 06/14/17 06:00 Labs: Abnormal lab results 06/13/17 06/13/17 06/14/17 Range/Units 16:47 21:20 06:00 RBC 3.14 L (3.65-5.03) M/mm3 Hgb 8.2 L (10.1-14.3) gm/dl Hct 24.8 L (30.3-42.9) % MCH 26 L (28-32) pg RDW 18.2 H (13.2-15.2) % Plt Count 598 H (140-440) K/mm3 Creatinine (0.7-1.2) mg/dL Glucose (65-100) mg/dL POC Glucose 149 H 331 H (70-105) 06/14/17 06/14/17 06/14/17 Range/Units 06:00 06:21 11:27 RBC (3.65-5.03) M/mm3 Hgb (10.1-14.3) gm/dl Hct (30.3-42.9) % MCH (28-32) pg RDW (13.2-15.2) % Plt Count (140-440) K/mm3 Creatinine 1.8 H (0.7-1.2) mg/dL Glucose 154 H (65-100) mg/dL POC Glucose 171 H 145 H (70-105)
[2017-06-14] MEDS: TYLENOL PO PRN (15:48)
[2017-06-15] MEDS: HumaLOG SUB-Q SCH ×3 (00:38→13:01)
[2017-06-15 06:59] LABS: Hemoglobin 8.3 gm/dl (10.1-14.3); Mean Corpuscular HGB Conc 33 % (30-34); Mean Corpuscular Hemoglobin 26 pg (28-32); Mean Corpuscular Volume 79 fl (79-97); Platelet Count 596 K/mm3 (140-440); Red Blood Count 3.15 M/mm3 (3.65-5.03); Red Cell Distribution Width 18.2 % (13.2-15.2)
[2017-06-15 07:18] LABS: Calcium 9.1 mg/dL (8.4-10.2)
[2017-06-15 07:34] VITALS: BP 121/75
[2017-06-15] MEDS ORDERED: K-DUR PO ONE (08:00)
[2017-06-15] MEDS: SODIUM BICARBONATE PO SCH (10:05)
[2017-06-15] MEDS: FLEXERIL PO SCH (10:06)
[2017-06-15] MEDS: cefTRIAXone 2 GM in NACL 0.9% 20 ML IV SCH (10:07)
[2017-06-15] MEDS: APRESOLINE PO SCH ×2 (10:09→17:37)
[2017-06-15] MEDS: NORVASC PO SCH (10:10)
[2017-06-15] MEDS: SODIUM CHLORIDE FLUSH SYRINGE 10 ML IV SCH (10:10)
[2017-06-15] MEDS: DAKIN'S FULL STRENGTH TP SCH (11:18)
[2017-06-15] MEDS: MORPHINE IV PRN (11:19)
[2017-06-15] MEDS: PEPCID PO SCH (11:20)
--- NOTE | 2017-06-15 11:49 | Discharge Summary ---
Providers - Providers Date of Admission: 06/05/17 17:06 Date of discharge: 06/15/17 Attending physician: JACOB PHILLIPS 06/05/17 17:11 Consult to Wound/ET Nurse [CONS] Routine Reason For Exam: wound eval 06/07/17 12:47 Consult to Physician [CONS] Routine Comment: Consulting Provider: STEVO EATON Physician Instructions: Reason For Exam: diabetic foot infection/ concern for vascular comp 06/07/17 12:51 Consult to Physician [CONS] Routine Comment: Consulting Provider: CASE SEALS Physician Instructions: Reason For Exam: diabetic foot infection 06/08/17 08:31 Consult to Physician [CONS] Routine Comment: Consulting Provider: ZAK HUERTA Physician Instructions: Reason For Exam: diabetic abscess 06/13/17 15:35 Consult to Case Management [CONS] Stat Services Needed at Discharge: Other Notified:: asset protection professional Additional Physician Instructions: [facility], [place], [facility] ([facility]) Shanelle Kirkland MD M [phone] O [phone] F [phone] OUTPATIENT PARENTERAL ANTIBIOTIC THERAPY ORDERS Diagnoses: right foot osteomyelitis and abscess due to Strep Antimicrobial administration: ceftriaxone 2 g IV q day total 6 weeks until 07/22/17 for right foot osteomyelitis. Will send orders to Administration/Dr Macias. Lines: PICC Lab monitoring: CBC, BMP, CRP once a week preferly on Wednesday morning. Please fax results to [phone] and call [phone] for critical lab results. Shanelle Kirkland Date: 06/13/17 06/14/17 21:40 Consult to PICC Line RN [CONS] Stat Reason For Exam: IV antibiotics Type Line:: PICC Primary care physician: WRITING MANAGER Hospitalization Condition: Stable Hospital course: Ms. Garland is 36 woman with a history of hypertension, dm type 2 and CKD 3 who presented with right foot purulent drainage and hyperglycemia. She was found to have the following: MRI Right foot: 1. Osteomyelitis involving the posterolateral calcaneus. 2. A 3.5 x 2.0 x 2.3 cm multiloculated soft tissue abscess of the posterolateral heel extends from the skin to the calcaneus. 3. Moderate diffuse subcutaneous soft tissue edema. 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 Seals, patient may need PICC line. They do not insert Picc lines over the weekend. Hold PICC line for now, awaiting final surgical wound cultures per Dr. Seals Dispo: home with abx and wound care when intraop cultures are finalized; uninsured, therefore, keep on 70/30 06/12/17: drop in hct, again, will transfuse 1 unit, order stool for FOBT, repeat cbc in am. Hypokalemia, will give potassium supplement and repeat levels in am. Also, Cr increase slightly to 2.0, will repeat in am, lost iv access after blood transfusion but was re-established. 06/13/17: hct improved, pt had extensive Gi workup in the past, most likely Acute blood loss anemia from menorrhagia with fibroids which were small in the past, she also had another menstrual cycle (not suppose to come) couple of days ago. She was advised to see apartment leasing manager but lost insurance. 06/14/17: awaiting clearance from ID and case management. h/h stable and Cr improved, down to 1.8 from 2.0 per ID: "Assessment: 1) Sepsis:better. Likely source right foot infection. 2) Right heel ulcer, OM of postero-lateral calcaneous and multiloculated soft tissue abscess of postero-lateral heel extending from skin to calcaneous as per MRI. s/p I and R 06/10/17 -ESR and CRP elevated -Swab wound cx 06/06/17 with Group B strep and Streptococcus not group D. -S/P OR I + D on 06/11 cx Group B strep and Streptococcus not group D. 3) Thrombocytosis. Likely reactive. 4) HARIKA. Creatinine improving. 5) IDDM 6) Penicillin allergy (swelling). Tolerating ceftriaxone 7) non insurance status Recommendations: -Continue ceftriaxone -upon discharge will do ceftriaxone 2 g IV q day total 6 weeks until 07/22/17 for right foot osteomyelitis. Will send orders to Administration/Dr Macias. " Disposition: [id number]/[place]-06 HOME UNDER HOME [facility] Time spent for discharge: 35 min Core Measure Documentation - Palliative Care Palliative Care/ Comfort Measures: Not Applicable - Core Measures Any of the following diagnoses?: none - VTE Discharge Requirements Deep Vein Thrombosis/Pulmonary Embolism Present on Admission: No Has pt received <5 days of overlap therapy or INR<2.0: No Anticoagulant overlap therapy prescribed at discharge: No Contraindication No Overlap Therapy order at DC: Not Indicated Exam - Physical Exam Narrative exam: GEN: WDWN, NAD, AWAKE, ALERT, ORIENTATED 3 HEENT: NCAT, EOMI, PERRL with left eye deformity, OP Clear NECK: supple, no adenopathy, no thyromegaly, no JVD CVS/HEART: RRR, NORMAL S1S2, pulses present bilaterally CHEST/LUNGS: CTA B, Symmetrical chest expansion, good air entry bilaterally GI/Abdomen: soft, NTND, good bowel sounds, no guarding or rebound /Bladder: no suprapubic tenderness, no CVA or paraspinal tenderness EXT/Skin: wound on her right heel and lateral side of her right foot, surrounding edema and erythema MSK: FROM x 4 Neuro: CN 2-12 grossly intact, no new focal deficits Psych: Anxious - Constitutional Vitals: Temp Pulse Resp BP Pulse Ox 98.5 F 104 H 12 121/75 91 06/15/17 07:25 06/15/17 07:25 06/15/17 07:25 06/15/17 10:10 06/15/17 07:25 Plan Activity: other (no strenous activities) Diet: low salt Follow up with: PRIMARY CARE, [Primary Care Provider] - 3-5 Days Prescriptions: ALPRAZolam [Xanax TAB] 0.5 mg PO Q8H PRN #3 day PRN Reason: Anxiety amLODIPine [Norvasc] 10 mg PO QDAY #30 tablet cefTRIAXone [Ceftriaxone] 2 gm IV Q24HR #1 vial Cyclobenzaprine [Flexeril 10 MG TAB] 10 mg PO TID PRN #30 tablet PRN Reason: Muscle Spasm hydrALAZINE [Apresoline TAB] 50 mg PO TID #90 tab Insulin NPH/Regular [NovoLIN 70/30] 10 unit SUB-Q BIDDIAB #10 units Lispro Insulin [Humalog] 1 dose SUB-Q ACHS PRN #100 units PRN Reason: Hyperglycemia oxyCODONE /ACETAMINOPHEN [Percocet 5/325 mg] 1 tab PO Q6H PRN #3 day PRN Reason: Pain, Moderate (4-6) Sodium Bicarbonate 650 mg PO TID #90 tablet
--- NOTE | 2017-06-15 13:51 | XRay Report ---
AP CHEST: HISTORY: PICC line placement A left arm PICC has been inserted which terminates in the superior right atrium. Consider retraction by 2 cm to the cavoatrial junction. AP view of the chest demonstrates a normal mediastinal and cardiac contour with clear lungs and normal bony and soft tissue structures. IMPRESSION: Unremarkable AP chest. PICC as described.
== END 2017-06-15 14:45 | disposition home health service (06) | DRG 853 ==
LOC: ED 15:26 → 3A 17:06
PROVIDERS: ADMIT Internal Medicine; ATTEND Internal Medicine
PROC: 30233N1 Transfusion of Nonautologous Red Blood Cells into Peripheral Vein, Percutaneous Approach (ICD-10-PCS; principal; 2017-06-08)
PROC: 0JBQ0ZZ Excision of Right Foot Subcutaneous Tissue and Fascia, Open Approach (ICD-10-PCS; 2017-06-10)
DX: A41.9 Sepsis, unspecified organism (principal); N17.0 Acute kidney failure with tubular necrosis; M86.8X7 Other osteomyelitis, ankle and foot; L03.115 Cellulitis of right lower limb; L02.611 Cutaneous abscess of right foot; L97.419 Non-pressure chronic ulcer of right heel and midfoot with unspecified severity; D62 Acute posthemorrhagic anemia; N18.4 Chronic kidney disease, stage 4 (severe); F41.9 Anxiety disorder, unspecified; E11.40 Type 2 diabetes mellitus with diabetic neuropathy, unspecified; E11.65 Type 2 diabetes mellitus with hyperglycemia; D64.9 Anemia, unspecified; E11.69 Type 2 diabetes mellitus with other specified complication; E11.621 Type 2 diabetes mellitus with foot ulcer; E11.42 Type 2 diabetes mellitus with diabetic polyneuropathy; E11.22 Type 2 diabetes mellitus with diabetic chronic kidney disease; I12.9 Hypertensive chronic kidney disease with stage 1 through stage 4 chronic kidney disease, or unspecified chronic kidney disease; N92.0 Excessive and frequent menstruation with regular cycle; Z79.4 Long term (current) use of insulin
CPT/HCPCS: 36415; 71045; 80048; 80053; 81001; 82140; 82805; 82962; 83036; 83735; 84703; 85025; 85027; 85610; 85652; 86140; 86850; 86900; 86901; 86920; 87040; 87075; 87086; 87116; 93005; 93010; 93306; 93922; 93925; 93970; 96361; 96374; 96375; A9577; J0696; J1170; J1815; J1885; J2020; J2250; J2270; J2370; J2405; J2704; J3370; J7030; J7040; J7050; P9016

== ENCOUNTER 2017-06-16 12:45 | Day surgery (SDC) | payer OTHER ==
[2017-06-16 13:29] VITALS: BP 178/101
[2017-06-16] MEDS ORDERED: cefTRIAXone 2 GM in NACL 0.9% 20 ML IV ONE (14:00)
== END 2017-06-16 14:20 | disposition home or self-care (01) ==
LOC: CATHLABREC 12:45
PROVIDERS: ATTEND Internal Medicine
DX: M86.9 Osteomyelitis, unspecified (principal)
CPT/HCPCS: 96374; J0696

== ENCOUNTER 2017-06-17 12:56 | Day surgery (SDC) | payer OTHER ==
[2017-06-17 13:24] VITALS: BP 177/110
[2017-06-17] MEDS ORDERED: cefTRIAXone 2 GM in NACL 0.9% 20 ML IV SCH (16:00)
== END 2017-06-17 14:20 | disposition home or self-care (01) ==
LOC: CATHLABREC 12:56
PROVIDERS: ATTEND Internal Medicine
DX: E11.621 Type 2 diabetes mellitus with foot ulcer (principal); L97.519 Non-pressure chronic ulcer of other part of right foot with unspecified severity
CPT/HCPCS: 96374; J0696

== ENCOUNTER 2017-06-18 14:00 | Emergency (ER) | payer SELFPAY ==
[2017-06-18 14:20] VITALS: BP 182/114
== END 2017-06-18 20:07 | disposition left against medical advice (07) ==
LOC: ED 14:00
DX: M79.671 Pain in right foot (principal); Z53.21 Procedure and treatment not carried out due to patient leaving prior to being seen by health care provider

== ENCOUNTER 2017-06-21 11:37 | Day surgery (SDC) | payer SELFPAY ==
[2017-06-21 13:00] VITALS: BP 168/106
[2017-06-21] MEDS ORDERED: cefTRIAXone 2 GM in NACL 0.9% 20 ML IV ONE (13:00)
== END 2017-06-21 13:10 | disposition home or self-care (01) ==
LOC: CATHLABREC 11:37
PROVIDERS: ATTEND Internal Medicine
DX: M86.8X7 Other osteomyelitis, ankle and foot (principal); H54.62 Unqualified visual loss, left eye, normal vision right eye
CPT/HCPCS: 96374; J0696

== ENCOUNTER 2017-06-22 12:16 | Day surgery (SDC) | payer SELFPAY ==
[2017-06-22 12:51] VITALS: BP 172/109
[2017-06-22] MEDS ORDERED: cefTRIAXone 2 GM in NACL 0.9% 20 ML IV ONE (13:15)
[2017-06-23] MEDS ORDERED: cefTRIAXone 2 GM in NACL 0.9% 20 ML IV SCH (10:00)
== END 2017-06-22 13:35 | disposition home or self-care (01) ==
LOC: CATHLABREC 12:16
PROVIDERS: ATTEND Internal Medicine
DX: M86.8X7 Other osteomyelitis, ankle and foot (principal); H54.62 Unqualified visual loss, left eye, normal vision right eye
CPT/HCPCS: 96374; J0696

== ENCOUNTER 2017-06-24 08:04 | Day surgery (SDC) | payer SELFPAY ==
[2017-06-24 09:00] VITALS: BP 174/104
[2017-06-24] MEDS ORDERED: cefTRIAXone 2 GM in NACL 0.9% 20 ML IV SCH (10:00)
== END 2017-06-24 09:40 | disposition home or self-care (01) ==
LOC: CATHLABREC 08:04
PROVIDERS: ATTEND Internal Medicine
DX: E11.621 Type 2 diabetes mellitus with foot ulcer (principal); L97.509 Non-pressure chronic ulcer of other part of unspecified foot with unspecified severity
CPT/HCPCS: 96374; J0696

== ENCOUNTER 2017-06-25 12:50 | Day surgery (SDC) | payer SELFPAY ==
[2017-06-25] MEDS ORDERED: ROCEPHIN/NS 2 GM/100 ML 2 GM/100 ML BAG IV ONE (13:15)
[2017-06-25 13:23] VITALS: BP 163/103
[2017-06-25] MEDS ORDERED: cefTRIAXone 2 GM in NACL 0.9% 20 ML IV ONE (13:45)
== END 2017-06-25 14:15 | disposition home or self-care (01) ==
LOC: CATHLABREC 12:50
PROVIDERS: ATTEND Internal Medicine
DX: M86.9 Osteomyelitis, unspecified (principal)
CPT/HCPCS: 96374; J0696

== ENCOUNTER 2017-06-28 10:19 | Day surgery (SDC) | payer OTHER ==
[2017-06-28] MEDS ORDERED: FLUSH HEPARIN IV ONE ×2 (10:24→10:49)
[2017-06-28] MEDS ORDERED: ROCEPHIN IV SCH (11:00)
[2017-06-28] MEDS ORDERED: cefTRIAXone 2 GM in NACL 0.9% 20 ML IV ONE (11:05)
== END 2017-06-28 10:35 | disposition home or self-care (01) ==
LOC: CATHLABREC 10:19
PROVIDERS: ATTEND Internal Medicine
DX: M86.8X7 Other osteomyelitis, ankle and foot (principal)
CPT/HCPCS: 96374; J1642; 96365

== ENCOUNTER 2017-06-29 11:04 | Day surgery (SDC) | payer OTHER ==
[2017-06-29 11:50] VITALS: BP 163/103
[2017-06-29] MEDS ORDERED: cefTRIAXone 2 GM in NACL 0.9% 20 ML IV SCH (12:00)
== END 2017-06-29 13:00 | disposition home or self-care (01) ==
LOC: CATHLABREC 11:04
PROVIDERS: ATTEND Internal Medicine
DX: E11.621 Type 2 diabetes mellitus with foot ulcer (principal); L97.419 Non-pressure chronic ulcer of right heel and midfoot with unspecified severity
CPT/HCPCS: 96374; J0696; 96365

== ENCOUNTER 2017-06-30 08:27 | Day surgery (SDC) | payer OTHER ==
[2017-06-30] MEDS ORDERED: cefTRIAXone 2 GM in NACL 0.9% 20 ML IV SCH (10:00)
[2017-06-30 10:24] VITALS: BP 144/98
== END 2017-06-30 10:00 | disposition home or self-care (01) ==
LOC: CATHLABREC 08:27
PROVIDERS: ATTEND Internal Medicine
DX: E11.621 Type 2 diabetes mellitus with foot ulcer (principal); L97.419 Non-pressure chronic ulcer of right heel and midfoot with unspecified severity
CPT/HCPCS: 96374; J0696

== ENCOUNTER 2017-07-01 07:45 | Day surgery (SDC) | payer OTHER ==
[2017-07-01 08:28] VITALS: BP 143/97
[2017-07-01] MEDS ORDERED: cefTRIAXone 2 GM in NACL 0.9% 20 ML IV SCH (10:00)
== END 2017-07-01 09:20 | disposition home or self-care (01) ==
LOC: CATHLABREC 07:45
PROVIDERS: ATTEND Internal Medicine
DX: E11.621 Type 2 diabetes mellitus with foot ulcer (principal); L97.419 Non-pressure chronic ulcer of right heel and midfoot with unspecified severity; Z88.0 Allergy status to penicillin
CPT/HCPCS: 96374; J0696

== ENCOUNTER 2017-07-02 06:53 | Day surgery (SDC) | payer OTHER ==
[2017-07-02] MEDS ORDERED: cefTRIAXone 2 GM in NACL 0.9% 20 ML IV SCH (07:11)
[2017-07-02 07:18] VITALS: BP 139/87
== END 2017-07-02 06:54 | disposition home or self-care (01) ==
LOC: CATHLABREC 06:53
PROVIDERS: ATTEND Internal Medicine
DX: E11.621 Type 2 diabetes mellitus with foot ulcer (principal); L97.419 Non-pressure chronic ulcer of right heel and midfoot with unspecified severity; Z88.0 Allergy status to penicillin
CPT/HCPCS: 96374; J0696

== ENCOUNTER 2017-07-05 09:25 | Day surgery (SDC) | payer OTHER ==
[2017-07-05] MEDS ORDERED: cefTRIAXone 2 GM in NACL 0.9% 20 ML IV ONE (09:44)
[2017-07-05 10:16] VITALS: BP 146/92
== END 2017-07-05 10:40 | disposition home or self-care (01) ==
LOC: CATHLABREC 09:25
PROVIDERS: ATTEND Internal Medicine
DX: E11.621 Type 2 diabetes mellitus with foot ulcer (principal); L97.419 Non-pressure chronic ulcer of right heel and midfoot with unspecified severity; Z88.0 Allergy status to penicillin
CPT/HCPCS: 96374; J0696

== ENCOUNTER 2017-07-06 10:58 | Day surgery (SDC) | payer SELFPAY ==
[2017-07-06 11:37] VITALS: BP 160/101
[2017-07-06] MEDS ORDERED: cefTRIAXone 2 GM in NACL 0.9% 20 ML IV SCH (12:00)
== END 2017-07-06 12:20 | disposition home or self-care (01) ==
LOC: CATHLABREC 10:58
PROVIDERS: ATTEND Internal Medicine
DX: E11.621 Type 2 diabetes mellitus with foot ulcer (principal); L97.419 Non-pressure chronic ulcer of right heel and midfoot with unspecified severity; Z88.0 Allergy status to penicillin
CPT/HCPCS: 96374; J0696

== ENCOUNTER 2017-07-07 09:32 | Day surgery (SDC) | payer SELFPAY ==
[2017-07-07 10:00] VITALS: BP 150/102
[2017-07-07] MEDS ORDERED: cefTRIAXone 2 GM in NACL 0.9% 20 ML IV SCH (10:00)
== END 2017-07-07 10:37 | disposition home or self-care (01) ==
LOC: CATHLABREC 09:32
PROVIDERS: ATTEND Internal Medicine
DX: M86.9 Osteomyelitis, unspecified (principal)
CPT/HCPCS: 96374; J0696

== ENCOUNTER 2017-07-08 08:02 | Day surgery (SDC) | payer SELFPAY ==
[2017-07-08 08:25] VITALS: BP 138/79
[2017-07-08] MEDS ORDERED: cefTRIAXone 2 GM in NACL 0.9% 20 ML IV SCH (09:00)
== END 2017-07-08 09:15 | disposition home or self-care (01) ==
LOC: CATHLABREC 08:02
PROVIDERS: ATTEND Internal Medicine
DX: E11.621 Type 2 diabetes mellitus with foot ulcer (principal); L97.419 Non-pressure chronic ulcer of right heel and midfoot with unspecified severity; Z88.0 Allergy status to penicillin
CPT/HCPCS: 96374; J0696

== ENCOUNTER 2017-07-09 09:43 | Day surgery (SDC) | payer SELFPAY ==
[2017-07-09] MEDS ORDERED: cefTRIAXone 2 GM in NACL 0.9% 20 ML IV SCH (11:00)
[2017-07-09 11:27] VITALS: BP 167/111
== END 2017-07-09 12:15 | disposition home or self-care (01) ==
LOC: CATHLABREC 09:43
PROVIDERS: ATTEND Internal Medicine
DX: E11.621 Type 2 diabetes mellitus with foot ulcer (principal); L97.419 Non-pressure chronic ulcer of right heel and midfoot with unspecified severity; Z88.0 Allergy status to penicillin
CPT/HCPCS: 96374; J0696

== ENCOUNTER 2017-07-12 07:34 | Day surgery (SDC) | payer SELFPAY ==
[2017-07-12 08:48] VITALS: BP 172/111
[2017-07-12] MEDS ORDERED: cefTRIAXone 2 GM in NACL 0.9% 20 ML IV NR (09:00)
== END 2017-07-12 09:54 | disposition home or self-care (01) ==
LOC: CATHLABREC 07:34
PROVIDERS: ATTEND Internal Medicine
DX: E11.621 Type 2 diabetes mellitus with foot ulcer (principal); L97.419 Non-pressure chronic ulcer of right heel and midfoot with unspecified severity; Z88.0 Allergy status to penicillin
CPT/HCPCS: 96374; J0696

== ENCOUNTER 2017-07-13 07:36 | Day surgery (SDC) | payer OTHER ==
[2017-07-13 08:26] VITALS: BP 142/98
[2017-07-13] MEDS ORDERED: cefTRIAXone 2 GM in NACL 0.9% 20 ML IV SCH (09:00)
== END 2017-07-13 09:10 | disposition home or self-care (01) ==
LOC: CATHLABREC 07:36
PROVIDERS: ATTEND Internal Medicine
DX: E11.621 Type 2 diabetes mellitus with foot ulcer (principal); L97.419 Non-pressure chronic ulcer of right heel and midfoot with unspecified severity; Z88.0 Allergy status to penicillin
CPT/HCPCS: 96374; J0696

== ENCOUNTER 2017-07-14 07:12 | Day surgery (SDC) | payer OTHER ==
[2017-07-14] MEDS ORDERED: cefTRIAXone 2 GM in NACL 0.9% 20 ML IV SCH (11:30)
[2017-07-14 11:42] VITALS: BP 150/100
== END 2017-07-14 12:25 | disposition home or self-care (01) ==
LOC: CATHLABREC 07:12
PROVIDERS: ATTEND Internal Medicine
DX: E11.621 Type 2 diabetes mellitus with foot ulcer (principal); L97.419 Non-pressure chronic ulcer of right heel and midfoot with unspecified severity; Z88.0 Allergy status to penicillin
CPT/HCPCS: J0696

== ENCOUNTER 2017-07-14 12:37 | Emergency (ER) | payer OTHER ==
[2017-07-14 13:06] VITALS: BP 151/104
== END 2017-07-14 16:00 | disposition left against medical advice (07) ==
LOC: ED 12:37
DX: E11.621 Type 2 diabetes mellitus with foot ulcer (principal); Z53.21 Procedure and treatment not carried out due to patient leaving prior to being seen by health care provider

== ENCOUNTER 2017-07-15 08:47 | Day surgery (SDC) | payer OTHER ==
[2017-07-15] MEDS ORDERED: cefTRIAXone 2 GM in NACL 0.9% 20 ML IV SCH (10:00)
[2017-07-15 10:57] VITALS: BP 156/99
== END 2017-07-15 12:00 | disposition home or self-care (01) ==
LOC: CATHLABREC 08:47
PROVIDERS: ATTEND Internal Medicine
DX: E11.621 Type 2 diabetes mellitus with foot ulcer (principal); L97.419 Non-pressure chronic ulcer of right heel and midfoot with unspecified severity; Z88.0 Allergy status to penicillin
CPT/HCPCS: 96374; J0696

== ENCOUNTER 2017-07-16 07:15 | Day surgery (SDC) | payer OTHER ==
[2017-07-16 07:34] VITALS: BP 138/83
[2017-07-16] MEDS ORDERED: cefTRIAXone 2 GM in NACL 0.9% 20 ML IV SCH (10:00)
== END 2017-07-16 08:30 | disposition home or self-care (01) ==
LOC: CATHLABREC 07:15
PROVIDERS: ATTEND Internal Medicine
DX: E11.621 Type 2 diabetes mellitus with foot ulcer (principal); L97.419 Non-pressure chronic ulcer of right heel and midfoot with unspecified severity; Z88.0 Allergy status to penicillin
CPT/HCPCS: 96365; 96374; J0696

== ENCOUNTER 2017-07-19 08:06 | Day surgery (SDC) | payer OTHER ==
[2017-07-19] MEDS ORDERED: cefTRIAXone 2 GM in NACL 0.9% 20 ML IV NR (10:00)
[2017-07-19] MEDS ORDERED: ECOTRIN PO ONE (10:24)
[2017-07-19 10:36] VITALS: BP 151/98
== END 2017-07-19 08:07 | disposition home or self-care (01) ==
LOC: CATHLABREC 08:06
PROVIDERS: ATTEND Internal Medicine
DX: E11.621 Type 2 diabetes mellitus with foot ulcer (principal); L97.419 Non-pressure chronic ulcer of right heel and midfoot with unspecified severity; Z88.0 Allergy status to penicillin
CPT/HCPCS: 96374; J0696

== ENCOUNTER 2017-07-20 08:22 | Day surgery (SDC) | payer OTHER ==
[2017-07-20] MEDS ORDERED: FLUSH HEPARIN IV ONE (10:13)
[2017-07-20 10:31] VITALS: BP 164/100
[2017-07-20] MEDS ORDERED: cefTRIAXone 2 GM in NACL 0.9% 20 ML IV SCH (11:00)
== END 2017-07-20 10:30 | disposition home or self-care (01) ==
LOC: CATHLABREC 08:22
PROVIDERS: ATTEND Internal Medicine
DX: E11.621 Type 2 diabetes mellitus with foot ulcer (principal); L97.419 Non-pressure chronic ulcer of right heel and midfoot with unspecified severity; Z88.0 Allergy status to penicillin
CPT/HCPCS: 96374; J0696

== ENCOUNTER 2017-07-21 08:04 | Day surgery (SDC) | payer OTHER ==
[2017-07-21 08:54] VITALS: BP 156/89
[2017-07-21] MEDS ORDERED: cefTRIAXone 2 GM in NACL 0.9% 20 ML IV SCH (10:00)
== END 2017-07-21 09:45 | disposition home or self-care (01) ==
LOC: CATHLABREC 08:04
PROVIDERS: ATTEND Internal Medicine
DX: E11.621 Type 2 diabetes mellitus with foot ulcer (principal); L97.419 Non-pressure chronic ulcer of right heel and midfoot with unspecified severity; Z88.0 Allergy status to penicillin
CPT/HCPCS: 96374; J0696

== ENCOUNTER 2017-08-06 18:13 | Emergency (ER) | payer SELFPAY ==
[2017-08-06] MEDS ORDERED: NORMODYNE IV ONE (20:53)
--- NOTE | 2017-08-06 20:55 | Emergency Department Report ---
HPI - General Chief Complaint: Extremity Injury, Lower Time Seen by Provider: 08/06/17 20:46 - HPI HPI: 36-year-old female presents to the emergency department with a one to 2 day history of some swelling and slight discomfort to the left great toe where she has started to develop what appears to be a blister. She thinks that she may have been bitten by some type of insect but did not see anything actually bite or sting her. She denies any fever. She is currently being treated for a different diabetic foot wound. She has a history of insulin dependent diabetes , hypertension, anxiety, neuropathy. She takes her insulin at night and says that she is compliant with both her insulin and her blood pressure medication, despite the fact that she is presenting with very elevated blood pressure. She denies any headache, chest pain, shortness of breath, nausea, vomiting. She has not taken anything for her symptoms prior to presentation. She does not have a primary care physician. She sees a Dr. Mcnulty for podiatry. ED Past Medical Hx - Past Medical History Hx Hypertension: Yes (2014) Hx Congestive Heart Failure: No Hx Diabetes: Yes Hx Deep Vein Thrombosis: No Hx Renal Disease: Yes Hx Psychiatric Treatment: Yes (Anxiety) Hx Asthma: Yes Hx COPD: No Additional medical history: Neuropathy, RIGHT FOOT ULCER/ ANXIETY - Surgical History Hx Pacemaker: No Hx Internal Defibrillator: No Hx Appendectomy: Yes Additional Surgical History: Abdominal Surgery, Left Eye Surgery, Right foot surgery - Social History Smoking Status: Never Smoker Substance Use Type: None - Medications Home Medications: Home Medications Medication Instructions Recorded Confirmed Last Taken Type Cyclobenzaprine [Flexeril 10 MG 10 mg PO TID PRN #30 tablet 06/15/17 07/20/17 Rx TAB] 10mg Insulin NPH/Regular [NovoLIN 70/30] 10 unit SUB-Q BIDDIAB #10 units 06/15/1707/20/17 Rx 10units Lispro Insulin [Humalog] 1 dose SUB-Q ACHS PRN #100 units 06/15/17 07/20/17 Rx 1 Sodium Bicarbonate 650 mg PO TID #90 tablet 06/15/17 07/20/17 07/20/17 Rx 650mg amLODIPine [Norvasc] 10 mg PO QDAY #30 tablet 0407/20/17 07/20/17 Rx 10mg hydrALAZINE [Apresoline TAB] 50 mg PO TID #90 tab 06/15/17 07/20/17 07/20/17 Rx 50mg Sulfamethoxazole/Trimethoprim 1 each PO BID #14 tablet 08/07/17 Unknown Rx [Bactrim DS TAB] ED Review of Systems ROS: Stated complaint: INSECT BITE ON FOOT Other details as noted in HPI Comment: All other systems reviewed and negative Constitutional: denies: chills, fever Eyes: denies: eye pain, eye discharge, vision change ENT: denies: ear pain, throat pain Respiratory: denies: cough, shortness of breath, wheezing Cardiovascular: denies: chest pain, palpitations Gastrointestinal: denies: abdominal pain, nausea, diarrhea Genitourinary: denies: urgency, dysuria, discharge Musculoskeletal: arthralgia. denies: back pain Skin: lesions. denies: rash Neurological: denies: headache, weakness, paresthesias Physical Exam - Physical Exam Vital Signs: Vital Signs 08/06/17 18:32 Temperature 99.2 F Pulse Rate 106 H Blood Pressure 180/105 O2 Sat by Pulse 18 L Oximetry Physical Exam: GENERAL: The patient is well-developed well-nourished. HENT: Normocephalic. Atraumatic. Patient has moist mucous membranes. EYES: Extraocular motions are intact. Pupils equal reactive to light bilaterally. NECK: Supple. Trachea is midline. CHEST/LUNGS: Clear to auscultation. There is no respiratory distress noted. HEART/CARDIOVASCULAR: Regular. There is no tachycardia. There is no murmur. ABDOMEN: Abdomen is soft, nontender. Patient has normal bowel sounds. There is no abdominal distention. SKIN: Skin is warm and dry. The patient has a blister to the left great toe on the medial side. There is no erythema but the blister is fluctuant. NEURO: The patient is awake, alert, and oriented. The patient is cooperative. The patient has no focal neurologic deficits. The patient has normal speech. MUSCULOSKELETAL: There is no tenderness or deformity. There is no limitation range of motion. There is no evidence of acute injury. ED Course Vital Signs 08/06/17 18:32 Temperature 99.2 F Pulse Rate 106 H Blood Pressure 180/105 O2 Sat by Pulse 18 L Oximetry ED Medical Decision Making - Lab Data Result diagrams: 08/06/17 21:14 08/06/17 21:20 - Radiology Data Radiology results: image reviewed interpreted by me: X-ray of the left great toe does not show any signs of osteomyelitis but there is some swelling to the medial side of the toe in the soft tissue that has an area of either fluid or air in the middle. - Medical Decision Making Patient presents with elevated blood pressure, elevated blood sugar and some swelling to the left great toe with a history of previous diabetic foot infections and ulcers. The swelling looks more like a blister and there is no current erythema or signs of infection at this time. However given the patient' s history she will be placed on some antibiotics and was given the first one here. X-ray does not show any signs of osteomyelitis. She was given a dose of labetalol for her blood pressure came down to a more reasonable level. She was given 6 units of IV insulin and the blood sugar came down to about 130. She did have mild venous acidosis but there was no elevated anion gap and it does not appear consistent with diabetic ketoacidosis. She has some chronic kidney disease that is consistent with her previous visit. She says that she has good follow-up with a film cutter. We discussed dietary and lifestyle changes to make help with the blood sugar and blood pressure and that she should keep a look sugar and blood pressure log. She has been instructed to return to the emergency department with any worsening of her symptoms, development of fever, or with any acute distress. She understands and agrees to the plan. - Differential Diagnosis cellulitis, blister, ulcer, osteomyelitis, DKA Critical Care Time: No Critical care attestation.: If time is entered above; I have spent that time in minutes in the direct care of this critically ill patient, excluding procedure time. ED Disposition Clinical Impression: Asymptomatic hypertensive urgency, Hyperglycemia due to type 1 diabetes mellitus, Renal insufficiency Blister of toe Qualifiers: Encounter type: initial encounter Laterality: left Qualified Code(s): S90.425A - Blister (nonthermal), left lesser toe(s), initial encounter Disposition: DC-01 TO HOME OR SELFCARE Is pt being admited?: No Condition: Stable Instructions: Diabetic Foot Ulcers (ED), Hypertension (ED), Diabetic Hyperglycemia (ED) Additional Instructions: Please follow up with a primary care physician in the next few days. Please follow-up with your film cutter on Wednesday. Return to the emergency Department with any worsening of her symptoms or any acute distress. Try and stay away from foods that are high in salt and caffeinated products to help with your blood pressure. Keep a blood pressure log. Try and stay away from foods that are high in sugar, carbohydrates and starches to help with your blood sugar/diabetes. Keep a blood sugar log. Prescriptions: Sulfamethoxazole/Trimethoprim [Bactrim DS TAB] 1 each PO BID #14 tablet Referrals: PRIMARY CARE, [Primary Care Provider] - 3-5 Days ROYCE CORDON MD [Staff Physician] - 3-5 Days BETH GUEVARA MD [Staff Physician] - 3-5 Days Health And Safety Coordinator, Your [Other] - 3-5 Days Time of Disposition: 00:40
[2017-08-06 21:43] LABS: Basophils # (Auto) 0.1 K/mm3 (0.0-0.1); Basophils % (Auto) 0.4 % (0.0-1.8); Eosinophils # (Auto) 0.2 K/mm3 (0.0-0.4); Eosinophils % (Auto) 1.3 % (0.0-4.3); Hematocrit 30.6 % (30.3-42.9); Hemoglobin 9.7 gm/dl (10.1-14.3); Lymphocytes # (Auto) 1.7 K/mm3 (1.2-5.4); Lymphocytes % (Auto) 12.4 % (13.4-35.0); Mean Corpuscular HGB Conc 32 % (30-34); Mean Corpuscular Volume 80 fl (79-97); Monocytes # (Auto) 0.9 K/mm3 (0.0-0.8); Monocytes % (Auto) 6.6 % (0.0-7.3); Platelet Count 468 K/mm3 (140-440); Red Blood Count 3.85 M/mm3 (3.65-5.03); Red Cell Distribution Width 16.7 % (13.2-15.2)
--- NOTE | 2017-08-06 21:45 | XRay Report ---
FINAL REPORT PROCEDURE: XR TOE(S) 2+V LT TECHNIQUE: LEFT toe radiographs, including AP, oblique and lateral views. HISTORY: left great toe pain and blister COMPARISON: No prior studies are available for comparison. FINDINGS: Fracture(s) and/or Dislocation(s): None. Joint space(s): Normal. Soft tissues: Moderate degree soft tissue swelling is noted along the postero-medial aspect of great toe and medial aspect of the foot and ankle. There is a rounded pocket of soft tissue air medial to the 1st proximal phalanx Bone mineralization: Normal. Foreign bodies: None. IMPRESSION: No acute bony or joint abnormality Soft tissue air involving the great toe may represent soft tissue infection versus penetrating wound. Clinical correlation is recommended.
[2017-08-06 21:46] LABS: Mean Corpuscular Hemoglobin 25 pg (28-32)
[2017-08-06] MEDS ORDERED: BACTRIM DS PO ONE (21:49)
[2017-08-06 22:03] LABS: Calcium 9.1 mg/dL (8.4-10.2)
[2017-08-06] MEDS ORDERED: HumuLIN R IV ONE (22:05)
[2017-08-06 23:17] VITALS: BP 145/90
== END 2017-08-07 00:56 | disposition home or self-care (01) ==
LOC: ED 18:13
DX: S90.422A Blister (nonthermal), left great toe, initial encounter (principal); J45.909 Unspecified asthma, uncomplicated; I10 Essential (primary) hypertension; Z79.4 Long term (current) use of insulin; I16.0 Hypertensive urgency; E11.65 Type 2 diabetes mellitus with hyperglycemia; Z88.8 Allergy status to other drugs, medicaments and biological substances; Z88.0 Allergy status to penicillin; X58.XXXA Exposure to other specified factors, initial encounter; Y93.89 Activity, other specified; Y92.89 Other specified places as the place of occurrence of the external cause; Y99.8 Other external cause status
CPT/HCPCS: 36415; 80048; 82805; 82962; 85025; 96374; 96375; 99284; J1815

== ENCOUNTER 2017-08-10 19:06 | Emergency (ER) | payer SELFPAY ==
[2017-08-10] MEDS ORDERED: CATAPRES PO ONE (22:39)
[2017-08-10] MEDS ORDERED: NORCO 5/325 PO ONE (22:39)
[2017-08-10 23:55] VITALS: BP 133/80
--- NOTE | 2017-08-11 00:30 | Emergency Department Report ---
- General Chief complaint: Skin/Abscess/Foreign Body Stated complaint: ABSCESS ON BACK Time Seen by Provider: 08/10/17 23:46 Source: patient Mode of arrival: Ambulatory Limitations: No Limitations - History of Present Illness Initial comments: 36-year-old -[place] female comes in for concern of a raised area on her right leg side of back patient reports it is warm to touch and extremely tender. She states that it's been there since 08/07/2017. It was noted the patient had elevated blood pressure in triage and has had taken her blood pressure medicine today. Patient reports that she taken any pain medication for her abscess of her back. Her blood pressure in triage was 166/120 and repeat in fast track of 224/137 with a heartbeat of 107. Patient reports she's had a similar abscess before. MD complaint: abscess/boil Severity scale (0 -10): 10 Quality: stabbing, aching, sharp Consistency: constant Improves with: medication Worsens with: palpation, movement Context: none Associated symptoms: denies other symptoms - Related Data Previous Rx's Medication Instructions Recorded Last Taken Type Cyclobenzaprine [Flexeril 10 MG 10 mg PO TID PRN #30 tablet 06/15/17 07/20/17 Rx TAB] 10mg Insulin NPH/Regular [NovoLIN 70/30] 10 unit SUB-Q BIDDIAB #10 units 06/15/17 Rx 10units Lispro Insulin [Humalog] 1 dose SUB-Q ACHS PRN #100 units 06/15/17 07/19/17 Rx 1 Sodium Bicarbonate 650 mg PO TID #90 tablet 06/15/17 07/20/17 Rx 650mg amLODIPine [Norvasc] 10 mg PO QDAY #30 tablet 06/15/17 07/20/17 Rx 10mg hydrALAZINE [Apresoline TAB] 50 mg PO TID #90 tab 06/15/17 07/20/17 Rx 50mg Acetaminophen/Codeine [Tylenol 1 tab PO Q4HR PRN #15 tablet 08/11/17 Unknown Rx /Codeine # 3 tab] Sulfamethoxazole/Trimethoprim 1 each PO BID #20 tablet 08/11/17 Unknown Rx [Bactrim DS TAB] Allergies Allergy/AdvReac Type Severity Reaction Status Date / Time lisinopril Allergy Swelling Verified 08/06/17 18:31 Penicillins Allergy Swelling Verified 08/06/17 18:31 Abscess Boil [facility] Chief Complaint: Skin/Abscess/Foreign Body Stated Complaint: ABSCESS ON BACK Time Seen by Provider: 08/10/17 23:46 Home Medications: Previous Rx's Medication Instructions Recorded Last Taken Type Cyclobenzaprine [Flexeril 10 MG 10 mg PO TID PRN #30 tablet 06/15/17 07/20/17 Rx TAB] 10mg Insulin NPH/Regular [NovoLIN 70/30] 10 unit SUB-Q BIDDIAB #10 units 06/15/17 Rx 10units Lispro Insulin [Humalog] 1 dose SUB-Q ACHS PRN #100 units 06/15/17 07/19/17 Rx 1 Sodium Bicarbonate 650 mg PO TID #90 tablet 06/15/17 07/20/17 Rx 650mg amLODIPine [Norvasc] 10 mg PO QDAY #30 tablet 06/15/17 07/20/17 Rx 10mg hydrALAZINE [Apresoline TAB] 50 mg PO TID #90 tab 06/15/17 07/20/17 Rx 50mg Acetaminophen/Codeine [Tylenol 1 tab PO Q4HR PRN #15 tablet 08/11/17 Unknown Rx /Codeine # 3 tab] Sulfamethoxazole/Trimethoprim 1 each PO BID #20 tablet 08/11/17 Unknown Rx [Bactrim DS TAB] Allergies/Adverse Reactions: Allergies Allergy/AdvReac Type Severity Reaction Status Date / Time lisinopril Allergy Swelling Verified 08/06/17 18:31 Penicillins Allergy Swelling Verified 08/06/17 18:31 ED Review of Systems ROS: Stated complaint: ABSCESS ON BACK Other details as noted in HPI ED Past Medical Hx - Past Medical History Hx Hypertension: Yes (2013) Hx Congestive Heart Failure: No Hx Diabetes: Yes Hx Deep Vein Thrombosis: No Hx Renal Disease: Yes Hx Psychiatric Treatment: Yes (Anxiety) Hx Asthma: Yes Hx COPD: No Additional medical history: Neuropathy, RIGHT FOOT ULCER/ ANXIETY - Surgical History Hx Pacemaker: No Hx Internal Defibrillator: No Hx Appendectomy: Yes Additional Surgical History: Abdominal Surgery, Left Eye Surgery, Right foot surgery - Social History Smoking Status: Never Smoker Substance Use Type: None - Medications Home Medications: Home Medications Medication Instructions Recorded Confirmed Last Taken Type Cyclobenzaprine [Flexeril 10 MG 10 mg PO TID PRN #30 tablet 06/15/17 07/20/17 Rx TAB] 10mg Insulin NPH/Regular [NovoLIN 70/30] 10 unit SUB-Q BIDDIAB #10 units 06/15/1707/20/17 Rx 10units Lispro Insulin [Humalog] 1 dose SUB-Q ACHS PRN #100 units 06/15/17 07/20/17 Rx 1 Sodium Bicarbonate 650 mg PO TID #90 tablet 06/15/17 07/20/17 07/20/17 Rx 650mg amLODIPine [Norvasc] 10 mg PO QDAY #30 tablet 06/15/17 07/20/17 07/20/17 Rx 10mg hydrALAZINE [Apresoline TAB] 50 mg PO TID #90 tab 06/15/17 07/20/17 07/20/17 Rx 50mg Acetaminophen/Codeine [Tylenol 1 tab PO Q4HR PRN #15 tablet 08/11/17 Unknown Rx /Codeine # 3 tab] Sulfamethoxazole/Trimethoprim 1 each PO BID #20 tablet 08/11/17 Unknown Rx [Bactrim DS TAB] ED Physical Exam - General Limitations: No Limitations General appearance: alert, in no apparent distress, other (appears to be in pain ) - Head Head exam: Present: atraumatic, normocephalic - ENT ENT exam: Present: mucous membranes moist - Respiratory Respiratory exam: Present: normal lung sounds bilaterally. Absent: respiratory distress - Cardiovascular Cardiovascular Exam: Present: regular rate, normal rhythm. Absent: systolic murmur, diastolic murmur, rubs, gallop - Back Exam Back exam: Present: tenderness - Neurological Exam Neurological exam: Present: alert, oriented X3 - Psychiatric Psychiatric exam: Present: normal affect, normal mood - Skin Skin exam: Present: other (14 cm x 7 cm indurated area of her right mid back that is very tender to palpate non-erythematous mildly warm no drainage) ED Course Vital Signs 08/10/17 08/10/17 08/10/17 20:06 22:43 23:07 Temperature 99.3 F Pulse Rate 105 H 107 H 105 H Respiratory Rate Blood Pressure 166/120 221/131 Blood Pressure 220/122 [Right] O2 Sat by Pulse 100 Oximetry 08/10/17 23:54 Temperature 99.1 F Pulse Rate 91 H Respiratory 20 Rate Blood Pressure Blood Pressure 133/80 [Right] O2 Sat by Pulse 100 Oximetry ED Medical Decision Making - Medical Decision Making Patient's been evaluated by this provider fast track. I discussed the patient that her abscess to her back is not ready to be incision and drain at this time. I discussed with patient that it still very indurated but not enough to have incision and drained to get any purulent discharge at this time. I discussed the patient to complete antibiotics that I will prescribe and take pain medication as needed. This patient did not operate heavy machinery while taking the Tylenol No. 3. Discussed the patient to please continue with warm compresses to the back. Discussed the patient to please follow-up in the next 3 days for suture reevaluation of her abscess to her back. Patient verbalizes understanding. Critical care attestation.: If time is entered above; I have spent that time in minutes in the direct care of this critically ill patient, excluding procedure time. ED Disposition Clinical Impression: Cellulitis Qualifiers: Site of cellulitis of trunk: back Disposition: DC-01 TO HOME OR SELFCARE Is pt being admited?: No Does the pt Need Aspirin: No Condition: Stable Instructions: Cellulitis (ED), Abscess (ED) Additional Instructions: Please complete antibiotics as prescribed. Take pain medication as prescribed please do not operate heavy machinery while taking the Tylenol No. 3. Please return back to the emergency room in 3 days for us to reevaluate the abscess/ cellulitis. Please continue to place warm compresses to the back. He can follow-up with primary care I have listed one below. Prescriptions: Acetaminophen/Codeine [Tylenol /Codeine # 3 tab] 1 tab PO Q4HR PRN #15 tablet PRN Reason: Pain Sulfamethoxazole/Trimethoprim [Bactrim DS TAB] 1 each PO BID #20 tablet Referrals: PRIMARY CARE, [Primary Care Provider] - 3-5 Days [facility] [Provider Group] - 3-5 Days Forms: Work/School Release Form(ED)
== END 2017-08-11 00:35 | disposition home or self-care (01) ==
LOC: ED 19:06
DX: L03.312 Cellulitis of back [any part except buttock and flank] (principal); I10 Essential (primary) hypertension; E11.9 Type 2 diabetes mellitus without complications; J45.909 Unspecified asthma, uncomplicated; F41.9 Anxiety disorder, unspecified; Z79.4 Long term (current) use of insulin; Z88.8 Allergy status to other drugs, medicaments and biological substances; Z88.0 Allergy status to penicillin

== ENCOUNTER 2017-08-12 06:18 | Emergency (ER) | payer SELFPAY ==
[2017-08-12 06:55] VITALS: BP 164/97
[2017-08-12] MEDS ORDERED: NORCO 5/325 PO ONE (07:29)
[2017-08-12] MEDS ORDERED: XYLOCAINE 1% MPF 5 mL INFILTRATI ONE (07:29)
[2017-08-12] MEDS ORDERED: BOOSTRIX IM ONE (07:29)
--- NOTE | 2017-08-12 07:29 | Emergency Department Report ---
Abscess Boil HPI - HPI Chief Complaint: Skin/Abscess/Foreign Body Stated Complaint: ABCESS ON BACK Time Seen by Provider: 08/12/17 07:13 Duration: 6 Days Location: Back (right upper back) History: Yes Pain, No Fever, No Purulent Drainage, No Numbness, No Foreign Body , No Previous History, No Insect Bite (unsure) HPI: Patient states she was here on 08/11/2017. She has an abscess on her back and it told her to come back in 2 days to get it drained. Patient says that she is having pain at 10 out of 10. She is not sure whether she's been bitten by something or if something this recurrent because she states she had an abscess under her armpit previously. Tetanus vaccine is not up-to-date. Pain is throbbing. She states that she had small amount of drainage last night and she thought it was ready so she came in to get it drained. She is currently on Bactrim and she was given Tylenol No. 3 Home Medications: Previous Rx's Medication Instructions Recorded Last Taken Type Cyclobenzaprine [Flexeril 10 MG 10 mg PO TID PRN #30 tablet 06/15/17 07/20/17 Rx TAB] 10mg Insulin NPH/Regular [NovoLIN 70/30] 10 unit SUB-Q BIDDIAB #10 units 06/15/17 Rx 10units Lispro Insulin [Humalog] 1 dose SUB-Q ACHS PRN #100 units 06/15/17 07/19/17 Rx 1 Sodium Bicarbonate 650 mg PO TID #90 tablet 06/15/17 07/20/17 Rx 650mg amLODIPine [Norvasc] 10 mg PO QDAY #30 tablet 06/15/17 07/20/17 Rx 10mg hydrALAZINE [Apresoline TAB] 50 mg PO TID #90 tab 06/15/17 07/20/17 Rx 50mg Acetaminophen/Codeine [Tylenol 1 tab PO Q4HR PRN #15 tablet 08/11/17 Unknown Rx /Codeine # 3 tab] Sulfamethoxazole/Trimethoprim 1 each PO BID #20 tablet 08/11/17 Unknown Rx [Bactrim DS TAB] Ibuprofen [Motrin] 600 mg PO Q8H PRN #12 tablet 08/12/17 Unknown Rx Allergies/Adverse Reactions: Allergies Allergy/AdvReac Type Severity Reaction Status Date / Time lisinopril Allergy Swelling Verified 08/06/17 18:31 Penicillins Allergy Swelling Verified 08/06/17 18:31 ED Review of Systems ROS: Stated complaint: ABCESS ON BACK Other details as noted in HPI Constitutional: denies: chills, fever Eyes: denies: vision change ENT: denies: ear pain, throat pain Respiratory: denies: cough, shortness of breath, SOB with exertion, SOB at rest , stridor, wheezing Cardiovascular: denies: chest pain, palpitations, edema, syncope Gastrointestinal: denies: nausea, vomiting Musculoskeletal: denies: back pain Skin: other (abscess to right back). denies: rash, lesions Neurological: denies: headache, weakness ED Past Medical Hx - Past Medical History Previous Medical History?: Yes Hx Hypertension: Yes (2013) Hx Congestive Heart Failure: No Hx Diabetes: Yes Hx Deep Vein Thrombosis: No Hx Renal Disease: Yes Hx Psychiatric Treatment: Yes (Anxiety) Hx Asthma: Yes Hx COPD: No Additional medical history: Neuropathy, RIGHT FOOT ULCER/ ANXIETY - Surgical History Past Surgical History?: Yes Hx Pacemaker: No Hx Internal Defibrillator: No Hx Appendectomy: Yes Additional Surgical History: Abdominal Surgery, Left Eye Surgery, Right foot surgery - Family History Family history: hypertension - Social History Smoking Status: Never Smoker Substance Use Type: None - Medications Home Medications: Home Medications Medication Instructions Recorded Confirmed Last Taken Type Cyclobenzaprine [Flexeril 10 MG 10 mg PO TID PRN #30 tablet 06/15/17 07/20/17 Rx TAB] 10mg Insulin NPH/Regular [NovoLIN 70/30] 10 unit SUB-Q BIDDIAB #10 units 06/15/1707/20/17 Rx 10units Lispro Insulin [Humalog] 1 dose SUB-Q ACHS PRN #100 units 06/15/17 07/20/17 Rx 1 Sodium Bicarbonate 650 mg PO TID #90 tablet 06/15/17 07/20/17 07/20/17 Rx 650mg amLODIPine [Norvasc] 10 mg PO QDAY #30 tablet 06/15/17 07/20/17 07/20/17 Rx 10mg hydrALAZINE [Apresoline TAB] 50 mg PO TID #90 tab 06/15/17 07/20/17 07/20/17 Rx 50mg Acetaminophen/Codeine [Tylenol 1 tab PO Q4HR PRN #15 tablet 08/11/17 Unknown Rx /Codeine # 3 tab] Sulfamethoxazole/Trimethoprim 1 each PO BID #20 tablet 08/11/17 Unknown Rx [Bactrim DS TAB] Ibuprofen [Motrin] 600 mg PO Q8H PRN #12 tablet 08/12/17 Unknown Rx ED Abscess Boil Physical Exam - Exam General: Vital signs noted. No distress. Alert and acting appropriately. Front/Back of Body, Lg (Color): 1 - Patient with 4 cm erythema, indurated , minimal fluctuance and tenderness to palpate it. Positive right upper back. Small pinpoint opening noted to distal and of erythema. Size: 4 cm Exam: Yes Tenderness, Yes Fluctuance, Yes Surrounding Cellulites/Erythema (mild) , Yes Normal Neurologic Exam, No Lymphangitis, No Crepitation, No Heart Murmur, No Normal Circulation Exam: Lungs: Clear Auscultated bilaterally, no rhonchi or areas. CV: S1, S2. Tachycardic at 105. Extremities: No clubbing, cyanosis or edema. Positive pulses all extremities I & D Note - I & D Note I & D Note: Procedure: 4 cm, saying that a indurated minimal flexion abscess to right upper back. Area cleansed with iodine and normal saline. 3 mL of 1% lidocaine injected side. 0.25 cm incision made with #11 blade scalpel and approximately 30 mL of pus expressed some side. Patient states that she is feeling better. She was given tetanus vaccine and also was given [place] 5/325 2 tablets prior to procedure. Sterile gauze dressing placed the side after cleaning . No complications ED Course Vital Signs 08/12/17 06:51 Temperature 98.9 F Pulse Rate 109 H Respiratory 20 Rate Blood Pressure 164/97 O2 Sat by Pulse 100 Oximetry - Reevaluation(s) Reevaluation #1: 08/12/17 09:53 Patient given Boostrix 0.5 mL and no cough R/325 2 tabs by mouth prior to procedure. She reports that her pain was down to 2/10. See procedure note for details on drainage of simple abscess Critical care attestation.: If time is entered above; I have spent that time in minutes in the direct care of this critically ill patient, excluding procedure time. ED Medical Decision Making - Medical Decision Making ED course 36-year-old female that was here 2 days ago for abscess to right upper back and she was placed on Tylenol 3 and Bactrim DS and told to come back in 2 days for drainage. She states that she is in a lot of pain and it was draining a small amount last night so she restarted was ready Patient was seen by myself and procedure for incision and drainage of simple abscess done. Please refer to procedure note for details. Patient was given [place] 5/325 2 tablets and updated in Boostrix. She is stable at present in no acute distress and tolerated procedure well. Patient states that she feels a lot better. A./P 1:Encounter on for incision and drainage of abscess to left upper back-see procedure note for details. Patient given Boostrix 0.5 mL to update tetanus, associated 52 tablets by mouth prior to procedure. We'll sent home and Motrin and patient said her pain is at or after drainage. Patient to follow-up in 3 days for removal of packing. Instructed to apply warm compresses to site to facilitate drainage 2: Saline this right upper back-patient to continue her Bactrim DS that was prescribed for her on 08/11/2017. Educated on abscess, cellulitis, acute wound care, medication and returning to have packing removed. Patient discharged home in stable condition, her vital signs are stable she is afebrile and says she is feeling better. Patient to return in 3 days to have packing removed from abscess. I discussed with her to return to emergency room if area worsens and she voiced understanding and discharged home with her family in stable condition with prescriptions for Motrin ED Disposition Clinical Impression: Encounter for incision and drainage procedure, Cellulitis and abscess of trunk Disposition: DC-01 TO HOME OR SELFCARE Is pt being admited?: No Does the pt Need Aspirin: No Condition: Stable Instructions: Abscess Incision and Drainage (ED), Cellulitis (ED) Additional Instructions: Take antibiotic as prescribed Follow-up with your primary care physician in 2 days Keep affected area clean and dry. Return to emergency room or urgent care in 3 days for removal of packing. Followed discharge instruction on acute wound care . If abscess and cellulitis site becomes worse, please return to the emergency room TARAH s Prescriptions: Ibuprofen [Motrin] 600 mg PO Q8H PRN #12 tablet PRN Reason: Pain Referrals: PRIMARY CARE, [Primary Care Provider] - 08/16/17 please return to, ED/urgent care [Other] - 08/15/17 (Packing removal) Forms: Work/School Release Form(ED)
== END 2017-08-12 10:12 | disposition home or self-care (01) ==
LOC: ED 06:18
DX: L03.312 Cellulitis of back [any part except buttock and flank] (principal); L02.212 Cutaneous abscess of back [any part, except buttock and flank]; I10 Essential (primary) hypertension; E11.40 Type 2 diabetes mellitus with diabetic neuropathy, unspecified; Z88.0 Allergy status to penicillin; Z88.8 Allergy status to other drugs, medicaments and biological substances; Z79.4 Long term (current) use of insulin
CPT/HCPCS: 90471; 90715; 99282

== ENCOUNTER 2017-08-19 14:59 | Inpatient (IN) | payer OTHER ==
[2017-08-19] MEDS ORDERED: ZOFRAN ODT ONE (15:42)
[2017-08-19] MEDS ORDERED: ZOFRAN ODT PO ONE (15:47)
--- NOTE | 2017-08-19 16:49 | Emergency Department Report ---
- General Chief Complaint: Recheck/Abnormal Lab/Rx Stated Complaint: CUT ON BACK Time Seen by Provider: 08/19/17 16:33 Source: patient Mode of arrival: Wheelchair Limitations: No Limitations - History of Present Illness Initial Comments: 36-year-old female past medical history diabetes, hypertension, anxiety, neuropathy presents with complaint of her nausea and vomiting. Patient has had multiple visits for abscess to back wall over the last week. Patient is now complaining of nausea and vomiting. Cannot tolerate drinking by mouth antibiotics. Patient states that the abscess is slightly better but her stomach is now hurting her worse than earlier this week. Patient has had multiple visits for this issue to the ED over the last week. Patient states she feels very nauseous has been vomiting cannot tolerate drinking antibiotics and feels very weak and dehydrated. Been able to take her other daily medications including diabetes medication. Onset/Timin -: week(s) Location: back 1 - Abscess site here still actively draining here, iodoform gauze in place Associated Symptoms: pain - Related Data Previous Rx's Medication Instructions Recorded Last Taken Type Cyclobenzaprine [Flexeril 10 MG 10 mg PO TID PRN #30 tablet 06/15/17 07/20/17 Rx TAB] 10mg Insulin NPH/Regular [NovoLIN 70/30] 10 unit SUB-Q BIDDIAB #10 units 06/15/17 Rx 10units Lispro Insulin [Humalog] 1 dose SUB-Q ACHS PRN #100 units 06/15/17 07/19/17 Rx 1 Sodium Bicarbonate 650 mg PO TID #90 tablet 06/15/17 07/20/17 Rx 650mg amLODIPine [Norvasc] 10 mg PO QDAY #30 tablet 06/15/17 07/20/17 Rx 10mg hydrALAZINE [Apresoline TAB] 50 mg PO TID #90 tab 06/15/17 07/20/17 Rx 50mg Acetaminophen/Codeine [Tylenol 1 tab PO Q4HR PRN #15 tablet 08/11/17 Unknown Rx /Codeine # 3 tab] Sulfamethoxazole/Trimethoprim 1 each PO BID #20 tablet 08/11/17 Unknown Rx [Bactrim DS TAB] Ibuprofen [Motrin] 600 mg PO Q8H PRN #12 tablet 08/12/17 Unknown Rx Clindamycin [Clindamycin CAP] 300 mg PO Q8H 10 Days cap 08/17/17 Unknown Rx HYDROcodone/APAP 5-325 [[place] 1 each PO Q6HR PRN #15 tablet 08/17/17 Unknown Rx 5/325] Ondansetron [Zofran Odt] 4 mg PO Q8HR PRN #10 tab.rapdis 08/17/17 Unknown Rx Allergies Allergy/AdvReac Type Severity Reaction Status Date / Time lisinopril Allergy Swelling Verified 08/19/17 15:37 Penicillins Allergy Swelling Verified 08/19/17 15:37 ED Review of Systems ROS: Stated complaint: CUT ON BACK Other details as noted in HPI Constitutional: denies: chills, fever Eyes: denies: eye pain, eye discharge, vision change ENT: denies: ear pain, throat pain Respiratory: denies: cough, shortness of breath, wheezing Cardiovascular: denies: chest pain, palpitations Endocrine: no symptoms reported Gastrointestinal: denies: abdominal pain, nausea, diarrhea Genitourinary: denies: urgency, dysuria, discharge Musculoskeletal: as per HPI, back pain. denies: joint swelling, arthralgia Skin: as per HPI. denies: rash, lesions Neurological: denies: headache, weakness, paresthesias Psychiatric: denies: anxiety, depression Hematological/Lymphatic: denies: easy bleeding, easy bruising ED Past Medical Hx - Past Medical History Hx Hypertension: Yes (2013) Hx Congestive Heart Failure: No Hx Diabetes: Yes Hx Deep Vein Thrombosis: No Hx Renal Disease: Yes Hx Psychiatric Treatment: Yes (Anxiety) Hx Asthma: Yes Hx COPD: No Additional medical history: Neuropathy, RIGHT FOOT ULCER/ ANXIETY - Surgical History Hx Pacemaker: No Hx Internal Defibrillator: No Hx Appendectomy: Yes Additional Surgical History: Abdominal Surgery, Left Eye Surgery, Right foot surgery - Social History Smoking Status: Never Smoker Substance Use Type: None - Medications Home Medications: Home Medications Medication Instructions Recorded Confirmed Last Taken Type Cyclobenzaprine [Flexeril 10 MG 10 mg PO TID PRN #30 tablet 06/15/17 07/20/17 Rx TAB] 10mg Insulin NPH/Regular [NovoLIN 70/30] 10 unit SUB-Q BIDDIAB #10 units 06/15/1707/20/17 Rx 10units Lispro Insulin [Humalog] 1 dose SUB-Q ACHS PRN #100 units 06/15/17 07/20/17 Rx 1 Sodium Bicarbonate 650 mg PO TID #90 tablet 06/15/17 07/20/17 07/20/17 Rx 650mg amLODIPine [Norvasc] 10 mg PO QDAY #30 tablet 06/15/17 07/20/17 07/20/17 Rx 10mg hydrALAZINE [Apresoline TAB] 50 mg PO TID #90 tab 06/15/17 07/20/17 07/20/17 Rx 50mg Acetaminophen/Codeine [Tylenol 1 tab PO Q4HR PRN #15 tablet 08/11/17 Unknown Rx /Codeine # 3 tab] Sulfamethoxazole/Trimethoprim 1 each PO BID #20 tablet 08/11/17 Unknown Rx [Bactrim DS TAB] Ibuprofen [Motrin] 600 mg PO Q8H PRN #12 tablet 08/12/17 Unknown Rx Clindamycin [Clindamycin CAP] 300 mg PO Q8H 10 Days cap 08/17/17 Unknown Rx HYDROcodone/APAP 5-325 [[place] 1 each PO Q6HR PRN #15 tablet 08/17/17 Unknown Rx 5/325] Ondansetron [Zofran Odt] 4 mg PO Q8HR PRN #10 tab.rapdis 08/17/17 Unknown Rx ED Physical Exam - General Limitations: No Limitations General appearance: anxious, in distress - Head Head exam: Present: atraumatic, normocephalic - Eye Eye exam: Present: normal appearance, PERRL, EOMI - ENT ENT exam: Present: mucous membranes moist - Neck Neck exam: Present: normal inspection - Respiratory Respiratory exam: Present: normal lung sounds bilaterally. Absent: respiratory distress - Cardiovascular Cardiovascular Exam: Present: regular rate, normal rhythm. Absent: systolic murmur, diastolic murmur, rubs, gallop - GI/Abdominal GI/Abdominal exam: Present: soft, normal bowel sounds - Extremities Exam Extremities exam: Present: normal inspection - Back Exam Back exam: Present: normal inspection, paraspinal tenderness (abscess right lower paraspinal region approximately 15 cm in diameter. It has an open draining site where there is iodoform gauze) - Neurological Exam Neurological exam: Present: alert, oriented X3, CN II-XII intact, normal gait - Psychiatric Psychiatric exam: Present: normal affect, normal mood - Skin Skin exam: Present: warm, dry, intact, normal color. Absent: rash - Expanded Skin Exam Expanded 1 - Draining abscess here ED Course Vital Signs 08/19/17 15:37 Temperature 97.9 F Pulse Rate 114 H Respiratory 18 Rate Blood Pressure 162/95 O2 Sat by Pulse 100 Oximetry ED Medical Decision Making - Medical Decision Making A/P: Dehydration, back abscess 1-case discussed with hospitalist for admission for IV antibiotics as patient cannot tolerate anything by mouth at this time and has persistent cellulitis with draining pus on back 2-discussed case with Dr. Anderson quality control clerk surgeon. In order to better characterize extent of abscess in context of patient's current creatinine will obtain noncontrast CT of back. 3-hospitalist accepted admission 4-IV vancomycin, IV fluid, analgesics, antiemetics Critical care attestation.: If time is entered above; I have spent that time in minutes in the direct care of this critically ill patient, excluding procedure time. ED Disposition Clinical Impression: Abscess of back, Hyperglycemia, Dehydration symptoms Disposition: OP ADMIT IP TO THIS HOSP Is pt being admited?: Yes Does the pt Need Aspirin: No Condition: Stable Referrals: PRIMARY CARE,MD [Primary Care Provider] - 3-5 Days
[2017-08-19] MEDS ORDERED: NACL 0.9% 1000 ML IV ONE (17:03)
[2017-08-19] MEDS ORDERED: VANCOMYCIN 1,250 MG in NACL 0.9% 500 ML 500 ML IV ONE (17:03)
[2017-08-19] MEDS ORDERED: DILAUDID IV ONE (17:04)
[2017-08-19] MEDS ORDERED: ZOFRAN IV ONE (17:44)
[2017-08-19] MEDS ORDERED: BENADRYL IV ONE (17:45)
[2017-08-19 19:55] LABS: Hematocrit 27.2 % (30.3-42.9); Hemoglobin 8.8 gm/dl (10.1-14.3); Mean Corpuscular HGB Conc 32 % (30-34); Mean Corpuscular Hemoglobin 26 pg (28-32); Mean Corpuscular Volume 81 fl (79-97); Platelet Count 708 K/mm3 (140-440); Red Blood Count 3.38 M/mm3 (3.65-5.03); Red Cell Distribution Width 16.5 % (13.2-15.2)
[2017-08-19 20:13] LABS: Calcium 9.4 mg/dL (8.4-10.2)
[2017-08-19 20:14] LABS: Albumin 3.2 g/dL (3.9-5)
--- NOTE | 2017-08-19 20:17 | Cat Scan Report ---
FINAL REPORT EXAM: CT ABDOMEN PELVIS WO CON HISTORY: back abscess right side. Cr eleveated 2.2 non con TECHNIQUE: Spiral CT scanning of the abdomen and pelvis. No oral or IV contrast administered. Multiplanar reformations. PRIORS: None. FINDINGS: Abdomen: Examination limited due to lack of contrast administration. Visualized lung bases grossly unremarkable. Ill-defined and lobular soft tissue density, with small gas locules noted in the right paramedian subcutaneous tissues of thoracolumbar trunk wall at approximate diaphragmatic level. No discrete or loculated fluid collection. Amorphous hyperdense foci in the gallbladder without significant pericholecystic fluid. Liver grossly unremarkable. Spleen grossly unremarkable. Pancreas grossly unremarkable. Punctate calcification noted in the right kidney measuring 1-2 mm, without significant hydronephrosis. Probable vascular calcifications in bilateral renal conchis. Left kidney grossly unremarkable. Adrenal glands grossly unremarkable. Pelvis: Bowel grossly unremarkable. Appendix is not confidently identified. No significant free peritoneal fluid or loculated fluid collection. Abdominal aorta non-aneurysmal. Very small, fat-containing umbilical hernia. IMPRESSION: 1. Findings which may represent nonspecific postinflammatory or phlegmonous change and cellulitis in the right paramedian thoracolumbar subcutaneous tissues. 2. Findings which may represent cholestasis versus cholelithiasis. 3. Punctate, nonobstructing right renal calcification. No significant right hydronephrosis.
[2017-08-19 20:35] LABS: Basophils % (Manual) 0 % (0.0-1.8); Eosinophils % (Manual) 0 % (0.0-4.3); Myelocytes # (Manual) 0.3 K/mm3; Total Cells Counted 100
[2017-08-19 20:36] LABS: Anisocytosis Few; Platelet Estimate Consistent w Auto
[2017-08-19] MEDS ORDERED: TYLENOL #3 PO PRN (21:39)
[2017-08-19] MEDS ORDERED: FLEXERIL PO PRN (21:39)
[2017-08-19] MEDS ORDERED: ZOFRAN ODT PO PRN (21:39)
[2017-08-19] MEDS ORDERED: MOTRIN PO PRN (21:39)
[2017-08-19] MEDS ORDERED: SODIUM CHLORIDE FLUSH SYRINGE 10 ML IV PRN (21:42)
[2017-08-19] MEDS ORDERED: TYLENOL PO PRN (21:42)
[2017-08-19] MEDS: NORVASC PO SCH (21:48)
[2017-08-19] MEDS: SODIUM CHLORIDE FLUSH SYRINGE 10 ML IV SCH (21:51)
--- NOTE | 2017-08-19 21:52 | History and Physical Report ---
History of Present Illness Date of examination: 08/19/17 Date of admission: 08/19/17 17:48 Chief complaint: Chief complaint: Severe drainage from the abscess site History of present illness: History of Present Illness: 36-year-old -[place] female with a history of insulin-dependent diabetes and hypertension comes in for recurrent abscesses drainage for the last 2 weeks. Patient had 3 or 4 visits or emergency room for the same thing. Patient seen by me about 3 days ago and was discharged after incision and drainage and wound packing on oral antibiotics and clindamycin. Patient comes in for the same abscess draining a lot responding to antibiotic treatment. No fever no chills. No exacerbating or relieving factors. Abscess is in the right back. At the level of T12 ED Past Medical Hx - Past Medical History Hx Hypertension: Yes (2013) Hx Congestive Heart Failure: No Hx Diabetes: Yes Hx Deep Vein Thrombosis: No Hx Renal Disease: Yes Hx Psychiatric Treatment: Yes (Anxiety) Hx Asthma: Yes Hx COPD: No Additional medical history: Neuropathy, RIGHT FOOT ULCER/ ANXIETY - Surgical History Hx Pacemaker: No Hx Internal Defibrillator: No Hx Appendectomy: Yes Additional Surgical History: Abdominal Surgery, Left Eye Surgery, Right foot surgery - Social History Smoking Status: Never Smoker Substance Use Type: None - Medications Home Medications: Home Medications Medication Instructions Recorded Confirmed Last Taken Type Cyclobenzaprine [Flexeril 10 MG 10 mg PO TID PRN #30 tablet 06/15/17 07/20/17 Rx TAB] 10mg Insulin NPH/Regular [NovoLIN 70/30] 10 unit SUB-Q BIDDIAB #10 units 06/15/1707/20/17 Rx 10units Lispro Insulin [Humalog] 1 dose SUB-Q ACHS PRN #100 units 06/15/17 07/20/17 Rx 1 Sodium Bicarbonate 650 mg PO TID #90 tablet 06/15/17 07/20/17 07/20/17 Rx 650mg amLODIPine [Norvasc] 10 mg PO QDAY #30 tablet 06/15/17 07/20/17 07/20/17 Rx 10mg hydrALAZINE [Apresoline TAB] 50 mg PO TID #90 tab 06/15/17 07/20/17 07/20/17 Rx 50mg Acetaminophen/Codeine [Tylenol 1 tab PO Q4HR PRN #15 tablet 08/11/17 Unknown Rx /Codeine # 3 tab] Sulfamethoxazole/Trimethoprim 1 each PO BID #20 tablet 08/11/17 Unknown Rx [Bactrim DS TAB] Ibuprofen [Motrin] 600 mg PO Q8H PRN #12 tablet 08/12/17 Unknown Rx Clindamycin [Clindamycin CAP] 300 mg PO Q8H 10 Days cap 08/17/17 Unknown Rx HYDROcodone/APAP 5-325 [Ernest 1 each PO Q6HR PRN #15 tablet 08/17/17 Unknown Rx 5/325] Ondansetron [Zofran Odt] 4 mg PO Q8HR PRN #10 tab.rapdis 08/17/17 Unknown Rx Review of Systems ROS: Stated complaint: CUT ON BACK Other details as noted in HPI Constitutional: denies: chills, fever Eyes: denies: eye pain, eye discharge, vision change ENT: denies: ear pain, throat pain Respiratory: denies: cough, shortness of breath, wheezing Cardiovascular: denies: chest pain, palpitations Endocrine: no symptoms reported Gastrointestinal: denies: abdominal pain, nausea, diarrhea Genitourinary: denies: urgency, dysuria, discharge Musculoskeletal: as per HPI, back pain. denies: joint swelling, arthralgia Skin: as per HPI. denies: rash, lesions Neurological: denies: headache, weakness, paresthesias Psychiatric: denies: anxiety, depression Hematological/Lymphatic: denies: easy bleeding, easy bruising Medications and Allergies Allergies Allergy/AdvReac Type Severity Reaction Status Date / Time lisinopril Allergy Swelling Verified 08/19/17 15:37 Penicillins Allergy Swelling Verified 08/19/17 15:37 Home Medications Medication Instructions Recorded Confirmed Last Taken Type Cyclobenzaprine [Flexeril 10 MG 10 mg PO TID PRN #30 tablet 06/15/17 07/20/17 Rx TAB] 10mg Insulin NPH/Regular [NovoLIN 70/30] 10 unit SUB-Q BIDDIAB #10 units 06/15/1707/20/17 Rx 10units Lispro Insulin [Humalog] 1 dose SUB-Q ACHS PRN #100 units 06/15/17 07/20/17 Rx 1 Sodium Bicarbonate 650 mg PO TID #90 tablet 06/15/17 07/20/17 07/20/17 Rx 650mg amLODIPine [Norvasc] 10 mg PO QDAY #30 tablet 06/15/17 07/20/17 07/20/17 Rx 10mg hydrALAZINE [Apresoline TAB] 50 mg PO TID #90 tab 06/15/17 07/20/17 07/20/17 Rx 50mg Acetaminophen/Codeine [Tylenol 1 tab PO Q4HR PRN #15 tablet 08/11/17 Unknown Rx /Codeine # 3 tab] Sulfamethoxazole/Trimethoprim 1 each PO BID #20 tablet 08/11/17 Unknown Rx [Bactrim DS TAB] Ibuprofen [Motrin] 600 mg PO Q8H PRN #12 tablet 08/12/17 Unknown Rx Clindamycin [Clindamycin CAP] 300 mg PO Q8H 10 Days cap 08/17/17 Unknown Rx HYDROcodone/APAP 5-325 [Ernest 1 each PO Q6HR PRN #15 tablet 08/17/17 Unknown Rx 5/325] Ondansetron [Zofran Odt] 4 mg PO Q8HR PRN #10 tab.rapdis 08/17/17 Unknown Rx Active Meds: Active Medications Acetaminophen (Tylenol) 650 mg PO Q4H PRN PRN Reason: Pain MILD(1-3)/Fever >100.5/GARRIDO Acetaminophen/Codeine Phosphate (Tylenol #3) 1 tab PO Q4HR PRN PRN Reason: Pain Acetaminophen/Hydrocodone Bitart (Ernest 5/325) 1 each PO Q6HR PRN PRN Reason: Pain Amlodipine Besylate (Norvasc) 10 mg PO QDAY ZAKIYA Cyclobenzaprine HCl (Flexeril) 10 mg PO TID PRN PRN Reason: Muscle Spasm Famotidine (Pepcid) 20 mg PO BID ZAKIYA Hydralazine HCl (Apresoline) 50 mg PO TID ZAKIYA Sodium Chloride (Nacl 0.9% 1000 Ml) 1,000 mls @ 75 mls/hr IV DIRECT ZAKIYA Stop: 08/20/17 11:00 Ibuprofen (Motrin) 600 mg PO Q8H PRN PRN Reason: Pain Insulin Human Isoph/Insulin Regular (Humulin 70/30) 10 unit SUB-Q BIDDIAB ZAKIYA Insulin Human Lispro (Humalog) 0 unit SUB-Q ACHS ZAKIYA; Protocol Morphine Sulfate (Morphine) 2 mg IV Q4H PRN PRN Reason: Pain, Moderate (4-6) Ondansetron HCl (Zofran Odt) 4 mg PO Q8HR PRN PRN Reason: Nausea And Vomiting Ondansetron HCl (Zofran) 4 mg IV Q8H PRN PRN Reason: Nausea And Vomiting Sodium Bicarbonate (Sodium Bicarbonate) 650 mg PO TID ZAKIYA Sodium Chloride (Sodium Chloride Flush Syringe 10 Ml) 10 ml IV BID ZAKYIA Sodium Chloride (Sodium Chloride Flush Syringe 10 Ml) 10 ml IV PRN PRN PRN Reason: LINE FLUSH Vancomycin HCl (Vancomycin Pharmacy To Dose) 1 each IV PKCONSULT ZAKIYA; Protocol Exam - Physical Exam Narrative exam: Lying in bed comfortably - Constitutional Vitals: Temp Pulse Resp BP Pulse Ox 97.9 F 114 H 18 162/95 100 08/19/17 15:37 08/19/17 15:37 08/19/17 15:37 08/19/17 15:37 08/19/17 15:37 General appearance: Present: no acute distress, well-nourished - EENT Eyes: Present: PERRL ENT: hearing intact, clear oral mucosa - Neck Neck: Present: supple, normal ROM - Respiratory Respiratory effort: normal Respiratory: bilateral: CTA - Cardiovascular Rhythm: regular Heart Sounds: Present: S1 & S2. Absent: rub, click - Extremities Extremities: no ischemia, pulses intact (80), pulses symmetrical, No edema Peripheral Pulses: within normal limits - Abdominal General gastrointestinal: Present: soft, non-tender, non-distended, normal bowel sounds Female genitourinary: Present: normal - Rectal Rectal Exam: deferred - Integumentary Integumentary: Present: clear, warm, dry - Musculoskeletal Musculoskeletal: strength equal bilaterally, other (abscesses in the right back 10 cm times 10 cm with incision and drainage site still draining) - Psychiatric Psychiatric: appropriate mood/affect, intact judgment & insight - Neurologic Neurologic: CNII-XII intact, moves all extremities Results - Labs CBC & Chem 7: 08/19/17 19:34 08/19/17 19:48 Labs: Laboratory Last Values WBC 15.6 K/mm3 (4.5-11.0) H 08/19/17 19:34 RBC 3.38 M/mm3 (3.65-5.03) L 08/19/17 19:34 Hgb 8.8 gm/dl (10.1-14.3) L 08/19/17 19:34 Hct 27.2 % (30.3-42.9) L 08/19/17 19:34 MCV 81 fl (79-97) 08/19/17 19:34 MCH 26 pg (28-32) L 08/19/17 19:34 MCHC 32 % (30-34) 08/19/17 19:34 RDW 16.5 % (13.2-15.2) H 08/19/17 19:34 Plt Count 708 K/mm3 (140-440) H 08/19/17 19:34 Add Manual Diff Complete 08/19/17 19:34 Total Counted 100 08/19/17 19:34 Seg Neuts % (Manual) 91.0 % (40.0-70.0) H 08/19/17 19:34 Band Neutrophils % 0 % 08/19/17 19:34 Lymphocytes % (Manual) 2.0 % (13.4-35.0) L 08/19/17 19:34 Reactive Lymphs % (Man) 0 % 08/19/17 19:34 Monocytes % (Manual) 2.0 % (0.0-7.3) 08/19/17 19:34 Eosinophils % (Manual) 0 % (0.0-4.3) 08/19/17 19:34 Basophils % (Manual) 0 % (0.0-1.8) 08/19/17 19:34 Metamyelocytes % 3.0 % 08/19/17 19:34 Myelocytes % 2.0 % 08/19/17 19:34 Promyelocytes % 0 % 08/19/17 19:34 Blast Cells % 0 % 08/19/17 19:34 Nucleated RBC % Not Reportable 08/19/17 19:34 Seg Neutrophils # Man 14.2 K/mm3 (1.8-7.7) H 08/19/17 19:34 Band Neutrophils # 0.0 K/mm3 08/19/17 19:34 Lymphocytes # (Manual) 0.3 K/mm3 (1.2-5.4) L 08/19/17 19:34 Abs React Lymphs (Man) 0.0 K/mm3 08/19/17 19:34 Monocytes # (Manual) 0.3 K/mm3 (0.0-0.8) 08/19/17 19:34 Eosinophils # (Manual) 0.0 K/mm3 (0.0-0.4) 08/19/17 19:34 Basophils # (Manual) 0.0 K/mm3 (0.0-0.1) 08/19/17 19:34 Metamyelocytes # 0.5 K/mm3 08/19/17 19:34 Myelocytes # 0.3 K/mm3 08/19/17 19:34 Promyelocytes # 0.0 K/mm3 08/19/17 19:34 Blast Cells # 0.0 K/mm3 08/19/17 19:34 WBC Morphology Not Reportable 08/19/17 19:34 Hypersegmented Neuts Not Reportable 08/19/17 19:34 Hyposegmented Neuts Not Reportable 08/19/17 19:34 Hypogranular Neuts Not Reportable 08/19/17 19:34 Smudge Cells Not Reportable 08/19/17 19:34 Toxic Granulation Not Reportable 08/19/17 19:34 Toxic Vacuolation Not Reportable 08/19/17 19:34 Dohle Bodies Not Reportable 08/19/17 19:34 Pelger-Huet Anomaly Not Reportable 08/19/17 19:34 Chelsie Rods Not Reportable 08/19/17 19:34 Platelet Estimate Consistent w auto 08/19/17 19:34 Clumped Platelets Not Reportable 08/19/17 19:34 Plt Clumps, EDTA Not Reportable 08/19/17 19:34 Large Platelets Not Reportable 08/19/17 19:34 Giant Platelets Not Reportable 08/19/17 19:34 Platelet Satelliting Not Reportable 08/19/17 19:34 Plt Morphology Comment Not Reportable 08/19/17 19:34 RBC Morphology Not Reportable 08/19/17 19:34 Dimorphic RBCs Not Reportable 08/19/17 19:34 Polychromasia Not Reportable 08/19/17 19:34 Hypochromasia Not Reportable 08/19/17 19:34 Poikilocytosis Not Reportable 08/19/17 19:34 Anisocytosis Few 08/19/17 19:34 Microcytosis Not Reportable 08/19/17 19:34 Macrocytosis Not Reportable 08/19/17 19:34 Spherocytes Not Reportable 08/19/17 19:34 Pappenheimer Bodies Not Reportable 08/19/17 19:34 Sickle Cells Not Reportable 08/19/17 19:34 Target Cells Not Reportable 08/19/17 19:34 Tear Drop Cells Not Reportable 08/19/17 19:34 Ovalocytes Not Reportable 08/19/17 19:34 Helmet Cells Not Reportable 08/19/17 19:34 Torrez-[employer] Bodies Not Reportable 08/19/17 19:34 [place] Rings Not Reportable 08/19/17 19:34 Sharonda Cells Not Reportable 08/19/17 19:34 Bite Cells Not Reportable 08/19/17 19:34 Crenated Cell Not Reportable 08/19/17 19:34 Elliptocytes Not Reportable 08/19/17 19:34 Acanthocytes (Spur) Not Reportable 08/19/17 19:34 Rouleaux Not Reportable 08/19/17 19:34 Hemoglobin C Crystals Not Reportable 08/19/17 19:34 Schistocytes Not Reportable 08/19/17 19:34 Malaria parasites Not Reportable 08/19/17 19:34 Joe Bodies Not Reportable 08/19/17 19:34 Hem Pathologist Commnt No 08/19/17 19:34 Sodium 136 mmol/L (137-145) L 08/19/17 19:48 Potassium 4.4 mmol/L (3.6-5.0) 08/19/17 19:48 Chloride 93.7 mmol/L (98-107) L 08/19/17 19:48 Carbon Dioxide 20 mmol/L (22-30) L 08/19/17 19:48 Anion Gap 27 mmol/L 08/19/17 19:48 BUN 27 mg/dL (7-17) H 08/19/17 19:48 Creatinine 1.7 mg/dL (0.7-1.2) H 08/19/17 19:48 Estimated GFR 41 ml/min 08/19/17 19:48 BUN/Creatinine Ratio 16 % 08/19/17 19:48 Glucose 360 mg/dL (65-100) H 08/19/17 19:48 Lactic Acid 0.90 mmol/L (0.7-2.0) 08/19/17 19:34 Calcium 9.4 mg/dL (8.4-10.2) 08/19/17 19:48 Total Bilirubin 0.20 mg/dL (0.1-1.2) 08/19/17 19:48 AST 15 units/L (5-40) 08/19/17 19:48 ALT 11 units/L (7-56) 08/19/17 19:48 Alkaline Phosphatase 221 units/L (35-129) H 08/19/17 19:48 Total Protein 8.2 g/dL (6.3-8.2) 08/19/17 19:48 Albumin 3.2 g/dL (3.9-5) L 08/19/17 19:48 Albumin/Globulin Ratio 0.6 % 08/19/17 19:48 Blood Type O POSITIVE 08/19/17 19:34 Antibody Screen Negative 08/19/17 19:34 - Imaging and Cardiology EKG: report reviewed Imaging and Cardiology: CT abdomen and pelvis IMPRESSION: 1. Findings which may represent nonspecific postinflammatory or phlegmonous change and cellulitis in the right paramedian thoracolumbar subcutaneous tissues. 2. Findings which may represent cholestasis versus cholelithiasis. 3. Punctate, nonobstructing right renal calcification. No significant right hydronephrosis. Assessment and Plan Advance Directives: Yes (full code) VTE prophylaxis?: Chemical Plan of care discussed with patient/family: Yes - Patient Problems (1) Abscess of back Current Visit: Yes Status: Acute Plan to address problem: Abscess of back not responding to outpatient treatment. Patient had incision and drainage in the emergency room here and was put on clindamycin 3 days ago. Abscess not responding to the antibiotics and profuse drainage present. Wound cultures came positive for MRSA resistant to clindamycin. Patient is being admitted for IV vancomycin and reevaluation of her incision and drainage. Continue pain management too. (2) ARF (acute renal failure) Current Visit: No Status: Acute Qualifiers: Acute renal failure type: with acute tubular necrosis Qualified Code(s): N17.0 - Acute kidney failure with tubular necrosis Plan to address problem: IV fluids for now (3) IDDM (insulin dependent diabetes mellitus) Current Visit: Yes Status: Chronic Plan to address problem: Continue insulin and coverage check hemoglobin A1c (4) Hypertension Current Visit: Yes Status: Chronic Qualifiers: Hypertension type: essential hypertension Qualified Code(s): I10 - Essential (primary) hypertension Plan to address problem: continue antihypertensives (5) Anemia Current Visit: Yes Status: Chronic Qualifiers: Anemia type: unspecified type Qualified Code(s): D64.9 - Anemia, unspecified Plan to address problem: Anemia workup (6) DVT prophylaxis Current Visit: Yes Status: Acute Plan to address problem: On Lovenox 40 mg subcutaneous daily
[2017-08-19] MEDS ORDERED: NACL 0.9% 1000 ML 1,000 ML IV SCH (22:00)
[2017-08-19] MEDS ORDERED: VANCOMYCIN PHARMACY TO DOSE IV SCH (22:00)
[2017-08-19] MEDS ORDERED: PEPCID PO SCH (22:00)
[2017-08-19] MEDS ORDERED: HumuLIN R ONE (22:13)
[2017-08-19] MEDS: HumaLOG SUB-Q SCH (22:18)
[2017-08-19] MEDS: PEPCID PO SCH (22:20)
[2017-08-20] MEDS: MORPHINE IV PRN ×3 (05:50→19:00)
[2017-08-20] MEDS: APRESOLINE IV PRN (05:50)
[2017-08-20] MEDS: ZOFRAN IV PRN ×3 (05:50→22:31)
[2017-08-20 05:51] LABS: Basophils % (Auto) 0.3 % (0.0-1.8); Eosinophils % (Auto) 0.2 % (0.0-4.3); Hematocrit 29.4 % (30.3-42.9); Hemoglobin 9.4 gm/dl (10.1-14.3); Lymphocytes # (Auto) 1.6 K/mm3 (1.2-5.4); Lymphocytes % (Auto) 10.3 % (13.4-35.0); Mean Corpuscular HGB Conc 32 % (30-34); Mean Corpuscular Hemoglobin 26 pg (28-32); Mean Corpuscular Volume 81 fl (79-97); Monocytes # (Auto) 1.1 K/mm3 (0.0-0.8); Monocytes % (Auto) 7.2 % (0.0-7.3); Platelet Count 692 K/mm3 (140-440); Red Blood Count 3.61 M/mm3 (3.65-5.03); Red Cell Distribution Width 16.7 % (13.2-15.2)
[2017-08-20 06:21] LABS: Alanine Aminotransferase 11 units/L (7-56); BUN/Creatinine Ratio 14; Blood Urea Nitrogen 26 mg/dL (7-17); Calcium 9.7 mg/dL (8.4-10.2); Hemolysis Index 0
[2017-08-20] MEDS: HumaLOG SUB-Q SCH ×3 (08:34→18:35)
[2017-08-20] MEDS: APRESOLINE PO SCH ×3 (08:35→23:45)
[2017-08-20] MEDS: SODIUM BICARBONATE PO SCH ×3 (08:36→23:45)
[2017-08-20] MEDS: PEPCID PO SCH ×2 (10:21→23:45)
[2017-08-20] MEDS: SODIUM CHLORIDE FLUSH SYRINGE 10 ML IV SCH (10:21)
[2017-08-20] MEDS: NORVASC PO SCH (10:21)
[2017-08-20] MEDS ORDERED: VANCOMYCIN/NS 1 GM/250 ML 1 GM/250 ML BAG IV ONE (14:00)
--- NOTE | 2017-08-20 14:10 | Progress Note ---
Assessment and Plan Assessment and plan: Ms. Garland is 36 yo woman with a history of right foot osteomyelitis, CKD 3/4, hypertension, dm type 2, Anemia, pcn allergy and anxiety disorder who presented to ED with back abscess for the last 2 weeks. Patient had 3 or 4 visits or emergency room for the same thing. Patient seen by ED physician about 3 days ago and was discharged after I-n-D and wound packing on oral antibiotics and clindamycin. Patient came back for worsening abscess -Abscess is in the right back, T12: Gen. Surgery consult, wound care, iv abx -CKD 4: stop Motrin -DM type 2: ssi, ada diet History Interval history: Patient was seen and examined. Follow-up on current diagnosis. Overnight uneventful. Patient denies any chest pain, shortness breath, nausea/vomiting or severe headaches. Imaging, nursing note, chart, labs and old chart reviewed. Discussed with patient. Hospitalist Physical - Physical exam Narrative exam: GEN: WDWN, NAD, Awake, Alert, Orientated x 3 HEENT: NCAT, EOMI, PERRL, OP Clear NECK: supple, no adenopathy, no thyromegaly, no JVD CVS/HEART: RRR, normal S1S2, pulses present bilaterally CHEST/LUNGS: CTA B, Symmetrical chest expansion, good air entry bilaterally GI/Abdomen: soft, NTND, good bowel sounds, no guarding or rebound /Bladder: no suprapubic tenderness, no CVA or paraspinal tenderness EXT/Skin: right mid back abscess draining pus MSK: FROM x 4 Neuro: CN 2-12 grossly intact, no new focal deficits Psych: calm - Constitutional Vitals: Temp Pulse Resp BP Pulse Ox 98.6 F 103 H 19 170/104 100 08/20/17 07:56 08/20/17 08:00 08/20/17 07:56 08/20/17 08:00 08/20/17 08:00 General appearance: Present: no acute distress, well-nourished Results - Labs CBC & Chem 7: 08/20/17 04:52 08/20/17 04:52 Labs: Laboratory Last Values WBC 15.4 K/mm3 (4.5-11.0) H 08/20/17 04:52 RBC 3.61 M/mm3 (3.65-5.03) L 08/20/17 04:52 Hgb 9.4 gm/dl (10.1-14.3) L 08/20/17 04:52 Hct 29.4 % (30.3-42.9) L 08/20/17 04:52 MCV 81 fl (79-97) 08/20/17 04:52 MCH 26 pg (28-32) L 08/20/17 04:52 MCHC 32 % (30-34) 08/20/17 04:52 RDW 16.7 % (13.2-15.2) H 08/20/17 04:52 Plt Count 692 K/mm3 (140-440) H 08/20/17 04:52 Lymph % (Auto) 10.3 % (13.4-35.0) L 08/20/17 04:52 [place] % (Auto) 7.2 % (0.0-7.3) 08/20/17 04:52 Eos % (Auto) 0.2 % (0.0-4.3) 08/20/17 04:52 Baso % (Auto) 0.3 % (0.0-1.8) 08/20/17 04:52 Lymph # 1.6 K/mm3 (1.2-5.4) 08/20/17 04:52 [place] # 1.1 K/mm3 (0.0-0.8) H 08/20/17 04:52 Eos # 0.0 K/mm3 (0.0-0.4) 08/20/17 04:52 Baso # 0.0 K/mm3 (0.0-0.1) 08/20/17 04:52 Add Manual Diff Complete 08/19/17 19:34 Total Counted 100 08/19/17 19:34 Seg Neutrophils % 82.0 % (40.0-70.0) H 08/20/17 04:52 Seg Neuts % (Manual) 91.0 % (40.0-70.0) H 08/19/17 19:34 Band Neutrophils % 0 % 08/19/17 19:34 Lymphocytes % (Manual) 2.0 % (13.4-35.0) L 08/19/17 19:34 Reactive Lymphs % (Man) 0 % 08/19/17 19:34 Monocytes % (Manual) 2.0 % (0.0-7.3) 08/19/17 19:34 Eosinophils % (Manual) 0 % (0.0-4.3) 08/19/17 19:34 Basophils % (Manual) 0 % (0.0-1.8) 08/19/17 19:34 Metamyelocytes % 3.0 % 08/19/17 19:34 Myelocytes % 2.0 % 08/19/17 19:34 Promyelocytes % 0 % 08/19/17 19:34 Blast Cells % 0 % 08/19/17 19:34 Nucleated RBC % Not Reportable 08/19/17 19:34 Seg Neutrophils # 12.6 K/mm3 (1.8-7.7) H 08/20/17 04:52 Seg Neutrophils # Man 14.2 K/mm3 (1.8-7.7) H 08/19/17 19:34 Band Neutrophils # 0.0 K/mm3 08/19/17 19:34 Lymphocytes # (Manual) 0.3 K/mm3 (1.2-5.4) L 08/19/17 19:34 Abs React Lymphs (Man) 0.0 K/mm3 08/19/17 19:34 Monocytes # (Manual) 0.3 K/mm3 (0.0-0.8) 08/19/17 19:34 Eosinophils # (Manual) 0.0 K/mm3 (0.0-0.4) 08/19/17 19:34 Basophils # (Manual) 0.0 K/mm3 (0.0-0.1) 08/19/17 19:34 Metamyelocytes # 0.5 K/mm3 08/19/17 19:34 Myelocytes # 0.3 K/mm3 08/19/17 19:34 Promyelocytes # 0.0 K/mm3 08/19/17 19:34 Blast Cells # 0.0 K/mm3 08/19/17 19:34 WBC Morphology Not Reportable 08/19/17 19:34 Hypersegmented Neuts Not Reportable 08/19/17 19:34 Hyposegmented Neuts Not Reportable 08/19/17 19:34 Hypogranular Neuts Not Reportable 08/19/17 19:34 Smudge Cells Not Reportable 08/19/17 19:34 Toxic Granulation Not Reportable 08/19/17 19:34 Toxic Vacuolation Not Reportable 08/19/17 19:34 Dohle Bodies Not Reportable 08/19/17 19:34 Pelger-Huet Anomaly Not Reportable 08/19/17 19:34 Chelsie Rods Not Reportable 08/19/17 19:34 Platelet Estimate Consistent w auto 08/19/17 19:34 Clumped Platelets Not Reportable 08/19/17 19:34 Plt Clumps, EDTA Not Reportable 08/19/17 19:34 Large Platelets Not Reportable 08/19/17 19:34 Giant Platelets Not Reportable 08/19/17 19:34 Platelet Satelliting Not Reportable 08/19/17 19:34 Plt Morphology Comment Not Reportable 08/19/17 19:34 RBC Morphology Not Reportable 08/19/17 19:34 Dimorphic RBCs Not Reportable 08/19/17 19:34 Polychromasia Not Reportable 08/19/17 19:34 Hypochromasia Not Reportable 08/19/17 19:34 Poikilocytosis Not Reportable 08/19/17 19:34 Anisocytosis Few 08/19/17 19:34 Microcytosis Not Reportable 08/19/17 19:34 Macrocytosis Not Reportable 08/19/17 19:34 Spherocytes Not Reportable 08/19/17 19:34 Pappenheimer Bodies Not Reportable 08/19/17 19:34 Sickle Cells Not Reportable 08/19/17 19:34 Target Cells Not Reportable 08/19/17 19:34 Tear Drop Cells Not Reportable 08/19/17 19:34 Ovalocytes Not Reportable 08/19/17 19:34 Helmet Cells Not Reportable 08/19/17 19:34 Torrez[place] Bodies Not Reportable 08/19/17 19:34 [place] Rings Not Reportable 08/19/17 19:34 Sharonda Cells Not Reportable 08/19/17 19:34 Bite Cells Not Reportable 08/19/17 19:34 Crenated Cell Not Reportable 08/19/17 19:34 Elliptocytes Not Reportable 08/19/17 19:34 Acanthocytes (Spur) Not Reportable 08/19/17 19:34 Rouleaux Not Reportable 08/19/17 19:34 Hemoglobin C Crystals Not Reportable 08/19/17 19:34 Schistocytes Not Reportable 08/19/17 19:34 Malaria parasites Not Reportable 08/19/17 19:34 Joe Bodies Not Reportable 08/19/17 19:34 Hem Pathologist Commnt No 08/19/17 19:34 Sodium 142 mmol/L (137-145) 08/20/17 04:52 Potassium 4.0 mmol/L (3.6-5.0) 08/20/17 04:52 Chloride 99.0 mmol/L (98-107) 08/20/17 04:52 Carbon Dioxide 26 mmol/L (22-30) 08/20/17 04:52 Anion Gap 21 mmol/L 08/20/17 04:52 BUN 26 mg/dL (7-17) H 08/20/17 04:52 Creatinine 1.9 mg/dL (0.7-1.2) H 08/20/17 04:52 Estimated GFR 36 ml/min 08/20/17 04:52 BUN/Creatinine Ratio 14 % 08/20/17 04:52 Glucose 239 mg/dL (65-100) H 08/20/17 04:52 POC Glucose 329 (70-105) H 08/20/17 11:10 Hemoglobin A1c 12.7 % (4-6) H 08/19/17 22:00 Lactic Acid 0.90 mmol/L (0.7-2.0) 08/19/17 19:34 Calcium 9.7 mg/dL (8.4-10.2) 08/20/17 04:52 Total Bilirubin < 0.20 mg/dL (0.1-1.2) 08/20/17 04:52 AST 10 units/L (5-40) 08/20/17 04:52 ALT 11 units/L (7-56) 08/20/17 04:52 Alkaline Phosphatase 213 units/L (35-129) H 08/20/17 04:52 Total Protein 7.9 g/dL (6.3-8.2) 08/20/17 04:52 Albumin 3.0 g/dL (3.9-5) L 08/20/17 04:52 Albumin/Globulin Ratio 0.6 % 08/20/17 04:52 Random Vancomycin 15.5 ug/mL (0-40.0) 08/20/17 10:59 Blood Type O POSITIVE 08/19/17 19:34 Antibody Screen Negative 08/19/17 19:34
[2017-08-20] MEDS ORDERED: VANCOMYCIN/NS 1 GM/250 ML 1 GM/250 ML BAG IV SCH (18:00)
--- NOTE | 2017-08-20 22:22 | Consultation ---
History of Present Illness Consult date: 08/20/17 Reason for consult: wound care Requesting physician: JACOB PHILLIPS Chief complaint: back infection - History of present illness History of present illness: 36y F with 1 week history of back abscess. Pt not sure how it developed. Was seen in the ED and had a an I&D. Returned a few days later when the symptoms were not getting better. Cultures grew out MRSA that was not sensitive to the Clinda that she was sent home on. She was admitted for IV abx and surgical evaluation. Pt reports that she is finally able to tolerate liquids. She is starting to feel a little better. Has been having fevers. Past History Past Medical History: diabetes, hypertension, other (asthma, anxiety, renal dz, neuropathy) Past Surgical History: appendectomy, Other (right foot and left eye surgeries) Social history: no significant social history, Family history: no significant family history Medications and Allergies Allergies Allergy/AdvReac Type Severity Reaction Status Date / Time lisinopril Allergy Swelling Verified 08/19/17 15:37 Penicillins Allergy Swelling Verified 08/19/17 15:37 Home Medications Medication Instructions Recorded Confirmed Last Taken Type Cyclobenzaprine [Flexeril 10 MG 10 mg PO TID PRN #30 tablet 06/15/17 07/20/17 Rx TAB] 10mg Insulin NPH/Regular [NovoLIN 70/30] 10 unit SUB-Q BIDDIAB #10 units 06/15/1707/20/17 Rx 10units Lispro Insulin [Humalog] 1 dose SUB-Q ACHS PRN #100 units 06/15/17 07/20/17 Rx 1 Sodium Bicarbonate 650 mg PO TID #90 tablet 06/15/17 07/20/17 07/20/17 Rx 650mg amLODIPine [Norvasc] 10 mg PO QDAY #30 tablet 06/15/17 07/20/17 07/20/17 Rx 10mg hydrALAZINE [Apresoline TAB] 50 mg PO TID #90 tab 06/15/17 07/20/17 07/20/17 Rx 50mg Acetaminophen/Codeine [Tylenol 1 tab PO Q4HR PRN #15 tablet 08/11/17 Unknown Rx /Codeine # 3 tab] Sulfamethoxazole/Trimethoprim 1 each PO BID #20 tablet 08/11/17 Unknown Rx [Bactrim DS TAB] Ibuprofen [Motrin] 600 mg PO Q8H PRN #12 tablet 08/12/17 Unknown Rx Clindamycin [Clindamycin CAP] 300 mg PO Q8H 10 Days cap 08/17/17 Unknown Rx HYDROcodone/APAP 5-325 [Elk 1 each PO Q6HR PRN #15 tablet 08/17/17 Unknown Rx 5/325] Ondansetron [Zofran Odt] 4 mg PO Q8HR PRN #10 tab.rapdis 08/17/17 Unknown Rx Active Meds: Active Medications Acetaminophen (Tylenol) 650 mg PO Q4H PRN PRN Reason: Pain MILD(1-3)/Fever >100.5/GARRIDO Acetaminophen/Hydrocodone Bitart (Elk 5/325) 1 each PO Q6HR PRN PRN Reason: Pain, Moderate (4-6) Amlodipine Besylate (Norvasc) 10 mg PO QDAY COUNT INCLUDES THE [facility] Last Admin: 08/20/17 10:21 Dose: 10 mg Cyclobenzaprine HCl (Flexeril) 10 mg PO TID PRN PRN Reason: Muscle Spasm Famotidine (Pepcid) 10 mg PO BID COUNT INCLUDES THE [facility] Last Admin: 08/20/17 10:21 Dose: 10 mg Hydralazine HCl (Apresoline) 50 mg PO TID COUNT INCLUDES THE [facility] Last Admin: 08/20/17 14:41 Dose: 50 mg Hydralazine HCl (Apresoline) 5 mg IV Q6H PRN PRN Reason: Hypertension Last Admin: 08/20/17 05:50 Dose: 5 mg Insulin Human Isoph/Insulin Regular (Humulin 70/30) 10 unit SUB-Q BIDDIAB COUNT INCLUDES THE [facility] Last Admin: 08/20/17 18:35 Dose: Not Given Insulin Human Lispro (Humalog) 0 unit SUB-Q [facility]; Protocol Last Admin: 08/20/17 18:35 Dose: Not Given Morphine Sulfate (Morphine) 2 mg IV Q4H PRN PRN Reason: Pain, Moderate (4-6) Last Admin: 08/20/17 19:00 Dose: 2 mg Ondansetron HCl (Zofran) 4 mg IV Q8H PRN PRN Reason: Nausea And Vomiting Last Admin: 08/20/17 19:00 Dose: 4 mg Sodium Bicarbonate (Sodium Bicarbonate) 650 mg PO TID COUNT INCLUDES THE [facility] Last Admin: 08/20/17 14:42 Dose: 650 mg Sodium Chloride (Sodium Chloride Flush Syringe 10 Ml) 10 ml IV BID COUNT INCLUDES THE [facility] Last Admin: 08/20/17 10:21 Dose: 10 ml Sodium Chloride (Sodium Chloride Flush Syringe 10 Ml) 10 ml IV PRN PRN PRN Reason: LINE FLUSH Vancomycin HCl (Vancomycin Pharmacy To Dose) 1 each IV PKCONSULT ZAKIYA; Protocol Review of Systems - Constitutional fever, fatigue, poor appetite, no chills - Cardiovascular no chest pain - Respiratory no shortness of breath - Gastrointestinal nausea, vomiting, loss of appetite, no abdominal pain - Genitourinary Genitourinary: no dysuria - Muskuloskeletal low back pain - Integumentary wounds - Psychiatric anxiety Exam Vital Signs Temp Pulse Resp BP Pulse Ox 97.9 F 114 H 18 162/95 100 08/19/17 15:37 08/19/17 15:37 08/19/17 15:37 08/19/17 15:37 08/19/17 15:37 - General physical appearance Positive: no distress, no pain, other (pleasant, appears tired) - Eyes Positive: normal occular movement - Respiratory Positive: normal expansion, normal respiratory effort - Cardiovascular Rhythm: regular - Abdomen Abdomen: Present: soft. Absent: tender - Integumentary other (large oval shaped area of induration on right side of mid back. 1.5cm opening with packing material. Small amount of purulent discharge seen. Mild tenderness noted around the opening and medially. There may a small fluctuant area on the medial aspect. ) - Neurologic Neurologic: alert and oriented to time, place and person, motor strength and sensation are grossly intact - Psychiatric Psychiatric: appropriate mood/affect, intact judgment & insight Results - Labs 08/20/17 04:52 08/20/17 04:52 Abnormal lab results 08/19/17 08/20/17 08/20/17 Range/Units 22:00 04:52 04:52 WBC 15.4 H (4.5-11.0) K/mm3 RBC 3.61 L (3.65-5.03) M/mm3 Hgb 9.4 L (10.1-14.3) gm/dl Hct 29.4 L (30.3-42.9) % MCH 26 L (28-32) pg RDW 16.7 H (13.2-15.2) % Plt Count 692 H (140-440) K/mm3 Lymph % (Auto) 10.3 L (13.4-35.0) % Antelope # 1.1 H (0.0-0.8) K/mm3 Seg Neutrophils % 82.0 H (40.0-70.0) % Seg Neutrophils # 12.6 H (1.8-7.7) K/mm3 BUN 26 H (7-17) mg/dL Creatinine 1.9 H (0.7-1.2) mg/dL Glucose 239 H (65-100) mg/dL POC Glucose (70-105) Hemoglobin A1c 12.7 H (4-6) % Alkaline Phosphatase 213 H (35-129) units/L Albumin 3.0 L (3.9-5) g/dL 08/20/17 08/20/17 Range/Units 07:32 11:10 WBC (4.5-11.0) K/mm3 RBC (3.65-5.03) M/mm3 Hgb (10.1-14.3) gm/dl Hct (30.3-42.9) % MCH (28-32) pg RDW (13.2-15.2) % Plt Count (140-440) K/mm3 Lymph % (Auto) (13.4-35.0) % Antelope # (0.0-0.8) K/mm3 Seg Neutrophils % (40.0-70.0) % Seg Neutrophils # (1.8-7.7) K/mm3 BUN (7-17) mg/dL Creatinine (0.7-1.2) mg/dL Glucose (65-100) mg/dL POC Glucose 240 H 329 H (70-105) Hemoglobin A1c (4-6) % Alkaline Phosphatase (35-129) units/L Albumin (3.9-5) g/dL Diabetes panel 08/19/17 08/20/17 Range/Units 22:00 04:52 Sodium 142 (137-145) mmol/L Potassium 4.0 (3.6-5.0) mmol/L Chloride 99.0 (98-107) mmol/L Carbon Dioxide 26 (22-30) mmol/L BUN 26 H (7-17) mg/dL Creatinine 1.9 H (0.7-1.2) mg/dL Glucose 239 H (65-100) mg/dL Hemoglobin A1c 12.7 H (4-6) % Calcium 9.7 (8.4-10.2) mg/dL AST 10 (5-40) units/L ALT 11 (7-56) units/L Alkaline Phosphatase 213 H (35-129) units/L Total Protein 7.9 (6.3-8.2) g/dL Albumin 3.0 L (3.9-5) g/dL Calcium panel 08/20/17 Range/Units 04:52 Calcium 9.7 (8.4-10.2) mg/dL Albumin 3.0 L (3.9-5) g/dL Pituitary panel 08/20/17 Range/Units 04:52 Sodium 142 (137-145) mmol/L Potassium 4.0 (3.6-5.0) mmol/L Chloride 99.0 (98-107) mmol/L Carbon Dioxide 26 (22-30) mmol/L BUN 26 H (7-17) mg/dL Creatinine 1.9 H (0.7-1.2) mg/dL Glucose 239 H (65-100) mg/dL Calcium 9.7 (8.4-10.2) mg/dL Adrenal panel 08/20/17 Range/Units 04:52 Sodium 142 (137-145) mmol/L Potassium 4.0 (3.6-5.0) mmol/L Chloride 99.0 (98-107) mmol/L Carbon Dioxide 26 (22-30) mmol/L BUN 26 H (7-17) mg/dL Creatinine 1.9 H (0.7-1.2) mg/dL Glucose 239 H (65-100) mg/dL Calcium 9.7 (8.4-10.2) mg/dL Total Bilirubin < 0.20 (0.1-1.2) mg/dL AST 10 (5-40) units/L ALT 11 (7-56) units/L Alkaline Phosphatase 213 H (35-129) units/L Total Protein 7.9 (6.3-8.2) g/dL Albumin 3.0 L (3.9-5) g/dL - Imaging CT scan - abdomen: report reviewed, image reviewed CT scan - pelvis: report reviewed, image reviewed Assessment and Plan - Patient Problems (1) Abscess of back Current Visit: Yes Status: Acute Plan to address problem: pt stable. Will monitor how patient does on appropriate Abx therapy. If there is still question about the medial aspect of the induration, we will perform another I&D. Will follow along. Please call with questions. Time=30min
[2017-08-21] MEDS: HumaLOG SUB-Q SCH ×5 (06:09→22:14)
[2017-08-21] MEDS: SODIUM CHLORIDE FLUSH SYRINGE 10 ML IV SCH ×3 (06:10→22:14)
[2017-08-21] MEDS: APRESOLINE IV PRN ×2 (07:02→15:30)
[2017-08-21 07:58] LABS: Hematocrit 28.2 % (30.3-42.9); Mean Corpuscular HGB Conc 32 % (30-34); Mean Corpuscular Hemoglobin 26 pg (28-32); Mean Corpuscular Volume 81 fl (79-97); Platelet Count 696 K/mm3 (140-440); Red Blood Count 3.47 M/mm3 (3.65-5.03); Red Cell Distribution Width 16.7 % (13.2-15.2)
[2017-08-21] MEDS: ZOFRAN IV PRN ×2 (08:06→20:24)
[2017-08-21] MEDS: SODIUM BICARBONATE PO SCH ×3 (08:07→20:25)
[2017-08-21 08:29] LABS: Calcium 9.2 mg/dL (8.4-10.2)
[2017-08-21] MEDS: MORPHINE IV PRN ×2 (08:30→20:24)
[2017-08-21] MEDS: APRESOLINE PO SCH ×3 (08:41→20:25)
[2017-08-21] MEDS: NORVASC PO SCH (10:30)
[2017-08-21] MEDS: PEPCID PO SCH ×2 (11:55→22:14)
--- NOTE | 2017-08-21 16:39 | Progress Note ---
Assessment and Plan 36 yo F with abscess of back 1. continue daily packing changes 2. heating pad to area to help with induration 3. c/w abx 4. strict glucose control Please call with questions or concerns. Subjective Date of service: 08/21/17 Narrative: Pt seen and examined. States she is feeling better. Having some nausea with medications. No f/c Objective Vital Signs - 12hr 08/21/17 08/21/17 08/21/17 04:49 07:02 08:23 Temperature 98.5 F 122.0 F H Pulse Rate 97 H 100 H 110 H Respiratory 20 20 Rate Blood Pressure 161/93 176/101 165/99 O2 Sat by Pulse 99 100 Oximetry 08/21/17 08/21/17 08/21/17 08:44 12:32 15:08 Temperature 99.2 F 98.4 F Pulse Rate 103 H Respiratory 20 Rate Blood Pressure 141/93 182/111 O2 Sat by Pulse 100 Oximetry 08/21/17 15:30 Temperature Pulse Rate Respiratory Rate Blood Pressure 183/111 O2 Sat by Pulse Oximetry - General physical appearance Narrative Exam: Gen: AAOx3. NAD Back: R upper back dressing removed. Packing out. Some slough at wound bed which was cleaned and removed. Wound probed and no other pockets of pus. No additional drainage. No tunnelling. Packed with one piece of 1/4 inch iodoform. Periwound skin has erythema and minimal induration. No fluctuance. Wound covered with coversite dressing. - Labs 08/21/17 06:36 08/21/17 06:36 Diabetes panel 08/21/17 Range/Units 06:36 Sodium 142 (137-145) mmol/L Potassium 3.7 (3.6-5.0) mmol/L Chloride 100.3 (98-107) mmol/L Carbon Dioxide 24 (22-30) mmol/L BUN 18 H (7-17) mg/dL Creatinine 1.7 H (0.7-1.2) mg/dL Glucose 258 H (65-100) mg/dL Calcium 9.2 (8.4-10.2) mg/dL Calcium panel 08/21/17 Range/Units 06:36 Calcium 9.2 (8.4-10.2) mg/dL Pituitary panel 08/21/17 Range/Units 06:36 Sodium 142 (137-145) mmol/L Potassium 3.7 (3.6-5.0) mmol/L Chloride 100.3 (98-107) mmol/L Carbon Dioxide 24 (22-30) mmol/L BUN 18 H (7-17) mg/dL Creatinine 1.7 H (0.7-1.2) mg/dL Glucose 258 H (65-100) mg/dL Calcium 9.2 (8.4-10.2) mg/dL Adrenal panel 08/21/17 Range/Units 06:36 Sodium 142 (137-145) mmol/L Potassium 3.7 (3.6-5.0) mmol/L Chloride 100.3 (98-107) mmol/L Carbon Dioxide 24 (22-30) mmol/L BUN 18 H (7-17) mg/dL Creatinine 1.7 H (0.7-1.2) mg/dL Glucose 258 H (65-100) mg/dL Calcium 9.2 (8.4-10.2) mg/dL
--- NOTE | 2017-08-21 18:12 | Progress Note ---
Assessment and Plan Assessment and plan: Ms. Garland is 36 yo woman with a history of right foot osteomyelitis, CKD 3/4, hypertension, dm type 2, Anemia, pcn allergy and anxiety disorder who presented to ED with back abscess for the last 2 weeks. Patient had 3 or 4 visits or emergency room for the same thing. Patient seen by ED physician about 3 days ago and was discharged after I-n-D and wound packing on oral antibiotics and clindamycin. Patient came back for worsening abscess -Back cellulitis with Abscess on the right at T12 level: Gen. Surgery consulted , wound care, iv abx -CKD 4: stop Motrin -DM type 2 with uncontrolled hyperglycemia: ssi, ada diet -Intractable nausea: add iv reglan WBC increasing will repeat levels follow wound ctx History Interval history: Patient was seen and examined. Follow-up on current diagnosis. Overnight uneventful. Patient denies any chest pain, shortness breath, nausea/vomiting or severe headaches. Imaging, nursing note, chart, labs and old chart reviewed. Discussed with patient. Hospitalist Physical - Physical exam Narrative exam: GEN: WDWN, NAD, Awake, Alert, Orientated x 3 HEENT: NCAT, EOMI, PERRL, OP Clear NECK: supple, no adenopathy, no thyromegaly, no JVD CVS/HEART: RRR, normal S1S2, pulses present bilaterally CHEST/LUNGS: CTA B, Symmetrical chest expansion, good air entry bilaterally GI/Abdomen: soft, NTND, good bowel sounds, no guarding or rebound /Bladder: no suprapubic tenderness, no CVA or paraspinal tenderness EXT/Skin: right mid back abscess draining pus MSK: FROM x 4 Neuro: CN 2-12 grossly intact, no new focal deficits Psych: calm - Constitutional Vitals: Temp Pulse Resp BP Pulse Ox 98.4 F 103 H 20 183/111 100 08/21/17 12:32 08/21/17 12:32 08/21/17 12:32 08/21/17 15:30 08/21/17 12:32 General appearance: Present: no acute distress, well-nourished Results - Labs CBC & Chem 7: 08/21/17 06:36 08/21/17 06:36 Labs: Laboratory Last Values WBC 17.4 K/mm3 (4.5-11.0) H 08/21/17 06:36 RBC 3.47 M/mm3 (3.65-5.03) L 08/21/17 06:36 Hgb 9.0 gm/dl (10.1-14.3) L 08/21/17 06:36 Hct 28.2 % (30.3-42.9) L 08/21/17 06:36 MCV 81 fl (79-97) 08/21/17 06:36 MCH 26 pg (28-32) L 08/21/17 06:36 MCHC 32 % (30-34) 08/21/17 06:36 RDW 16.7 % (13.2-15.2) H 08/21/17 06:36 Plt Count 696 K/mm3 (140-440) H 08/21/17 06:36 Lymph % (Auto) 10.3 % (13.4-35.0) L 08/20/17 04:52 Mccreary % (Auto) 7.2 % (0.0-7.3) 08/20/17 04:52 Eos % (Auto) 0.2 % (0.0-4.3) 08/20/17 04:52 Baso % (Auto) 0.3 % (0.0-1.8) 08/20/17 04:52 Lymph # 1.6 K/mm3 (1.2-5.4) 08/20/17 04:52 Mccreary # 1.1 K/mm3 (0.0-0.8) H 08/20/17 04:52 Eos # 0.0 K/mm3 (0.0-0.4) 08/20/17 04:52 Baso # 0.0 K/mm3 (0.0-0.1) 08/20/17 04:52 Add Manual Diff Complete 08/19/17 19:34 Total Counted 100 08/19/17 19:34 Seg Neutrophils % 82.0 % (40.0-70.0) H 08/20/17 04:52 Seg Neuts % (Manual) 91.0 % (40.0-70.0) H 08/19/17 19:34 Band Neutrophils % 0 % 08/19/17 19:34 Lymphocytes % (Manual) 2.0 % (13.4-35.0) L 08/19/17 19:34 Reactive Lymphs % (Man) 0 % 08/19/17 19:34 Monocytes % (Manual) 2.0 % (0.0-7.3) 08/19/17 19:34 Eosinophils % (Manual) 0 % (0.0-4.3) 08/19/17 19:34 Basophils % (Manual) 0 % (0.0-1.8) 08/19/17 19:34 Metamyelocytes % 3.0 % 08/19/17 19:34 Myelocytes % 2.0 % 08/19/17 19:34 Promyelocytes % 0 % 08/19/17 19:34 Blast Cells % 0 % 08/19/17 19:34 Nucleated RBC % Not Reportable 08/19/17 19:34 Seg Neutrophils # 12.6 K/mm3 (1.8-7.7) H 08/20/17 04:52 Seg Neutrophils # Man 14.2 K/mm3 (1.8-7.7) H 08/19/17 19:34 Band Neutrophils # 0.0 K/mm3 08/19/17 19:34 Lymphocytes # (Manual) 0.3 K/mm3 (1.2-5.4) L 08/19/17 19:34 Abs React Lymphs (Man) 0.0 K/mm3 08/19/17 19:34 Monocytes # (Manual) 0.3 K/mm3 (0.0-0.8) 08/19/17 19:34 Eosinophils # (Manual) 0.0 K/mm3 (0.0-0.4) 08/19/17 19:34 Basophils # (Manual) 0.0 K/mm3 (0.0-0.1) 08/19/17 19:34 Metamyelocytes # 0.5 K/mm3 08/19/17 19:34 Myelocytes # 0.3 K/mm3 08/19/17 19:34 Promyelocytes # 0.0 K/mm3 08/19/17 19:34 Blast Cells # 0.0 K/mm3 08/19/17 19:34 WBC Morphology Not Reportable 08/19/17 19:34 Hypersegmented Neuts Not Reportable 08/19/17 19:34 Hyposegmented Neuts Not Reportable 08/19/17 19:34 Hypogranular Neuts Not Reportable 08/19/17 19:34 Smudge Cells Not Reportable 08/19/17 19:34 Toxic Granulation Not Reportable 08/19/17 19:34 Toxic Vacuolation Not Reportable 08/19/17 19:34 Dohle Bodies Not Reportable 08/19/17 19:34 Pelger-Huet Anomaly Not Reportable 08/19/17 19:34 Chelsie Rods Not Reportable 08/19/17 19:34 Platelet Estimate Consistent w auto 08/19/17 19:34 Clumped Platelets Not Reportable 08/19/17 19:34 Plt Clumps, EDTA Not Reportable 08/19/17 19:34 Large Platelets Not Reportable 08/19/17 19:34 Giant Platelets Not Reportable 08/19/17 19:34 Platelet Satelliting Not Reportable 08/19/17 19:34 Plt Morphology Comment Not Reportable 08/19/17 19:34 RBC Morphology Not Reportable 08/19/17 19:34 Dimorphic RBCs Not Reportable 08/19/17 19:34 Polychromasia Not Reportable 08/19/17 19:34 Hypochromasia Not Reportable 08/19/17 19:34 Poikilocytosis Not Reportable 08/19/17 19:34 Anisocytosis Few 08/19/17 19:34 Microcytosis Not Reportable 08/19/17 19:34 Macrocytosis Not Reportable 08/19/17 19:34 Spherocytes Not Reportable 08/19/17 19:34 Pappenheimer Bodies Not Reportable 08/19/17 19:34 Sickle Cells Not Reportable 08/19/17 19:34 Target Cells Not Reportable 08/19/17 19:34 Tear Drop Cells Not Reportable 08/19/17 19:34 Ovalocytes Not Reportable 08/19/17 19:34 Helmet Cells Not Reportable 08/19/17 19:34 Torrez-Pateros Bodies Not Reportable 08/19/17 19:34 [place] Rings Not Reportable 08/19/17 19:34 Sharonda Cells Not Reportable 08/19/17 19:34 Bite Cells Not Reportable 08/19/17 19:34 Crenated Cell Not Reportable 08/19/17 19:34 Elliptocytes Not Reportable 08/19/17 19:34 Acanthocytes (Spur) Not Reportable 08/19/17 19:34 Rouleaux Not Reportable 08/19/17 19:34 Hemoglobin C Crystals Not Reportable 08/19/17 19:34 Schistocytes Not Reportable 08/19/17 19:34 Malaria parasites Not Reportable 08/19/17 19:34 Joe Bodies Not Reportable 08/19/17 19:34 Hem Pathologist Commnt No 08/19/17 19:34 Sodium 142 mmol/L (137-145) 08/21/17 06:36 Potassium 3.7 mmol/L (3.6-5.0) 08/21/17 06:36 Chloride 100.3 mmol/L (98-107) 08/21/17 06:36 Carbon Dioxide 24 mmol/L (22-30) 08/21/17 06:36 Anion Gap 21 mmol/L 08/21/17 06:36 BUN 18 mg/dL (7-17) H 08/21/17 06:36 Creatinine 1.7 mg/dL (0.7-1.2) H 08/21/17 06:36 Estimated GFR 41 ml/min 08/21/17 06:36 BUN/Creatinine Ratio 11 % 08/21/17 06:36 Glucose 258 mg/dL (65-100) H 08/21/17 06:36 POC Glucose 321 (70-105) H 08/21/17 17:28 Hemoglobin A1c 12.7 % (4-6) H 08/19/17 22:00 Lactic Acid 0.90 mmol/L (0.7-2.0) 08/19/17 19:34 Calcium 9.2 mg/dL (8.4-10.2) 08/21/17 06:36 Total Bilirubin < 0.20 mg/dL (0.1-1.2) 08/20/17 04:52 AST 10 units/L (5-40) 08/20/17 04:52 ALT 11 units/L (7-56) 08/20/17 04:52 Alkaline Phosphatase 213 units/L (35-129) H 08/20/17 04:52 Total Protein 7.9 g/dL (6.3-8.2) 08/20/17 04:52 Albumin 3.0 g/dL (3.9-5) L 08/20/17 04:52 Albumin/Globulin Ratio 0.6 % 08/20/17 04:52 Random Vancomycin 15.5 ug/mL (0-40.0) 08/20/17 10:59 Blood Type O POSITIVE 08/19/17 19:34 Antibody Screen Negative 08/19/17 19:34
[2017-08-21] MEDS ORDERED: REGLAN IV PRN (23:50)
[2017-08-22] MEDS: APRESOLINE IV PRN (00:08)
[2017-08-22] MEDS: MORPHINE IV PRN ×3 (00:12→21:26)
[2017-08-22 08:10] LABS: Hematocrit 29.3 % (30.3-42.9); Hemoglobin 9.4 gm/dl (10.1-14.3); Mean Corpuscular HGB Conc 32 % (30-34); Mean Corpuscular Hemoglobin 26 pg (28-32); Mean Corpuscular Volume 81 fl (79-97); Platelet Count 692 K/mm3 (140-440); Red Blood Count 3.62 M/mm3 (3.65-5.03); Red Cell Distribution Width 16.7 % (13.2-15.2)
[2017-08-22 08:28] LABS: Calcium 9.5 mg/dL (8.4-10.2)
[2017-08-22] MEDS ORDERED: VANCOMYCIN/NS 1 GM/250 ML 1 GM/250 ML BAG IV SCH (10:00)
[2017-08-22] MEDS: APRESOLINE PO SCH ×3 (10:38→21:23)
[2017-08-22] MEDS: SODIUM BICARBONATE PO SCH ×3 (10:39→21:24)
[2017-08-22] MEDS: PEPCID PO SCH ×2 (10:41→21:24)
[2017-08-22] MEDS: NORVASC PO SCH (10:41)
[2017-08-22] MEDS: HumaLOG SUB-Q SCH ×4 (10:43→23:23)
[2017-08-22] MEDS: SODIUM CHLORIDE FLUSH SYRINGE 10 ML IV SCH ×2 (10:44→22:00)
--- NOTE | 2017-08-22 12:30 | Progress Note ---
Assessment and Plan Assessment and plan: Ms. Garland is 36 yo woman with a history of right foot osteomyelitis, CKD 3/4, hypertension, dm type 2, Anemia, pcn allergy and anxiety disorder who presented to ED with back abscess for the last 2 weeks. Patient had 3 or 4 visits or emergency room for the same thing. Patient seen by ED physician about 3 days ago and was discharged after I-n-D and wound packing on oral antibiotics and clindamycin. Patient came back for worsening abscess -Back cellulitis with Abscess on the right at T12 level: Gen. Surgery consulted , wound care, iv abx -CKD 4: stop Motrin -DM type 2 with uncontrolled hyperglycemia: ssi, ada diet -Intractable nausea: add iv reglan WBC decreased, repeat am follow wound ctx History Interval history: Patient was seen and examined. Follow-up on current diagnosis. Overnight uneventful. Patient denies any chest pain, shortness breath, nausea/vomiting or severe headaches. Imaging, nursing note, chart, labs and old chart reviewed. Discussed with patient. Hospitalist Physical - Physical exam Narrative exam: GEN: WDWN, NAD, Awake, Alert, Orientated x 3 HEENT: NCAT, EOMI, PERRL, OP Clear NECK: supple, no adenopathy, no thyromegaly, no JVD CVS/HEART: RRR, normal S1S2, pulses present bilaterally CHEST/LUNGS: CTA B, Symmetrical chest expansion, good air entry bilaterally GI/Abdomen: soft, NTND, good bowel sounds, no guarding or rebound /Bladder: no suprapubic tenderness, no CVA or paraspinal tenderness EXT/Skin: right mid back abscess draining pus MSK: FROM x 4 Neuro: CN 2-12 grossly intact, no new focal deficits Psych: calm - Constitutional Vitals: Temp Pulse Resp BP Pulse Ox 98.2 F 105 H 20 140/85 96 08/22/17 08:48 08/22/17 08:48 08/22/17 08:48 08/22/17 10:41 08/22/17 08:48 General appearance: Present: no acute distress, well-nourished Results - Labs CBC & Chem 7: 08/22/17 07:32 08/22/17 07:32 Labs: Laboratory Last Values WBC 14.0 K/mm3 (4.5-11.0) H 08/22/17 07:32 RBC 3.62 M/mm3 (3.65-5.03) L 08/22/17 07:32 Hgb 9.4 gm/dl (10.1-14.3) L 08/22/17 07:32 Hct 29.3 % (30.3-42.9) L 08/22/17 07:32 MCV 81 fl (79-97) 08/22/17 07:32 MCH 26 pg (28-32) L 08/22/17 07:32 MCHC 32 % (30-34) 08/22/17 07:32 RDW 16.7 % (13.2-15.2) H 08/22/17 07:32 Plt Count 692 K/mm3 (140-440) H 08/22/17 07:32 Lymph % (Auto) 10.3 % (13.4-35.0) L 08/20/17 04:52 [place] % (Auto) 7.2 % (0.0-7.3) 08/20/17 04:52 Eos % (Auto) 0.2 % (0.0-4.3) 08/20/17 04:52 Baso % (Auto) 0.3 % (0.0-1.8) 08/20/17 04:52 Lymph # 1.6 K/mm3 (1.2-5.4) 08/20/17 04:52 [place] # 1.1 K/mm3 (0.0-0.8) H 08/20/17 04:52 Eos # 0.0 K/mm3 (0.0-0.4) 08/20/17 04:52 Baso # 0.0 K/mm3 (0.0-0.1) 08/20/17 04:52 Add Manual Diff Complete 08/19/17 19:34 Total Counted 100 08/19/17 19:34 Seg Neutrophils % 82.0 % (40.0-70.0) H 08/20/17 04:52 Seg Neuts % (Manual) 91.0 % (40.0-70.0) H 08/19/17 19:34 Band Neutrophils % 0 % 08/19/17 19:34 Lymphocytes % (Manual) 2.0 % (13.4-35.0) L 08/19/17 19:34 Reactive Lymphs % (Man) 0 % 08/19/17 19:34 Monocytes % (Manual) 2.0 % (0.0-7.3) 08/19/17 19:34 Eosinophils % (Manual) 0 % (0.0-4.3) 08/19/17 19:34 Basophils % (Manual) 0 % (0.0-1.8) 08/19/17 19:34 Metamyelocytes % 3.0 % 08/19/17 19:34 Myelocytes % 2.0 % 08/19/17 19:34 Promyelocytes % 0 % 08/19/17 19:34 Blast Cells % 0 % 08/19/17 19:34 Nucleated RBC % Not Reportable 08/19/17 19:34 Seg Neutrophils # 12.6 K/mm3 (1.8-7.7) H 08/20/17 04:52 Seg Neutrophils # Man 14.2 K/mm3 (1.8-7.7) H 08/19/17 19:34 Band Neutrophils # 0.0 K/mm3 08/19/17 19:34 Lymphocytes # (Manual) 0.3 K/mm3 (1.2-5.4) L 08/19/17 19:34 Abs React Lymphs (Man) 0.0 K/mm3 08/19/17 19:34 Monocytes # (Manual) 0.3 K/mm3 (0.0-0.8) 08/19/17 19:34 Eosinophils # (Manual) 0.0 K/mm3 (0.0-0.4) 08/19/17 19:34 Basophils # (Manual) 0.0 K/mm3 (0.0-0.1) 08/19/17 19:34 Metamyelocytes # 0.5 K/mm3 08/19/17 19:34 Myelocytes # 0.3 K/mm3 08/19/17 19:34 Promyelocytes # 0.0 K/mm3 08/19/17 19:34 Blast Cells # 0.0 K/mm3 08/19/17 19:34 WBC Morphology Not Reportable 08/19/17 19:34 Hypersegmented Neuts Not Reportable 08/19/17 19:34 Hyposegmented Neuts Not Reportable 08/19/17 19:34 Hypogranular Neuts Not Reportable 08/19/17 19:34 Smudge Cells Not Reportable 08/19/17 19:34 Toxic Granulation Not Reportable 08/19/17 19:34 Toxic Vacuolation Not Reportable 08/19/17 19:34 Dohle Bodies Not Reportable 08/19/17 19:34 Pelger-Huet Anomaly Not Reportable 08/19/17 19:34 Chelsie Rods Not Reportable 08/19/17 19:34 Platelet Estimate Consistent w auto 08/19/17 19:34 Clumped Platelets Not Reportable 08/19/17 19:34 Plt Clumps, EDTA Not Reportable 08/19/17 19:34 Large Platelets Not Reportable 08/19/17 19:34 Giant Platelets Not Reportable 08/19/17 19:34 Platelet Satelliting Not Reportable 08/19/17 19:34 Plt Morphology Comment Not Reportable 08/19/17 19:34 RBC Morphology Not Reportable 08/19/17 19:34 Dimorphic RBCs Not Reportable 08/19/17 19:34 Polychromasia Not Reportable 08/19/17 19:34 Hypochromasia Not Reportable 08/19/17 19:34 Poikilocytosis Not Reportable 08/19/17 19:34 Anisocytosis Few 08/19/17 19:34 Microcytosis Not Reportable 08/19/17 19:34 Macrocytosis Not Reportable 08/19/17 19:34 Spherocytes Not Reportable 08/19/17 19:34 Pappenheimer Bodies Not Reportable 08/19/17 19:34 Sickle Cells Not Reportable 08/19/17 19:34 Target Cells Not Reportable 08/19/17 19:34 Tear Drop Cells Not Reportable 08/19/17 19:34 Ovalocytes Not Reportable 08/19/17 19:34 Helmet Cells Not Reportable 08/19/17 19:34 [place] Bodies Not Reportable 08/19/17 19:34 [place] Rings Not Reportable 08/19/17 19:34 [place] Cells Not Reportable 08/19/17 19:34 Bite Cells Not Reportable 08/19/17 19:34 Crenated Cell Not Reportable 08/19/17 19:34 Elliptocytes Not Reportable 08/19/17 19:34 Acanthocytes (Spur) Not Reportable 08/19/17 19:34 Rouleaux Not Reportable 08/19/17 19:34 Hemoglobin C Crystals Not Reportable 08/19/17 19:34 Schistocytes Not Reportable 08/19/17 19:34 Malaria parasites Not Reportable 08/19/17 19:34 Joe Bodies Not Reportable 08/19/17 19:34 Hem Pathologist Commnt No 08/19/17 19:34 Sodium 140 mmol/L (137-145) 08/22/17 07:32 Potassium 3.6 mmol/L (3.6-5.0) 08/22/17 07:32 Chloride 99.2 mmol/L (98-107) 08/22/17 07:32 Carbon Dioxide 27 mmol/L (22-30) 08/22/17 07:32 Anion Gap 17 mmol/L 08/22/17 07:32 BUN 21 mg/dL (7-17) H 08/22/17 07:32 Creatinine 2.5 mg/dL (0.7-1.2) H 08/22/17 07:32 Estimated GFR 26 ml/min 08/22/17 07:32 BUN/Creatinine Ratio 8 % 08/22/17 07:32 Glucose 295 mg/dL (65-100) H 08/22/17 07:32 POC Glucose 389 (70-105) H 08/22/17 11:35 Hemoglobin A1c 12.7 % (4-6) H 08/19/17 22:00 Lactic Acid 0.90 mmol/L (0.7-2.0) 08/19/17 19:34 Calcium 9.5 mg/dL (8.4-10.2) 08/22/17 07:32 Total Bilirubin < 0.20 mg/dL (0.1-1.2) 08/20/17 04:52 AST 10 units/L (5-40) 08/20/17 04:52 ALT 11 units/L (7-56) 08/20/17 04:52 Alkaline Phosphatase 213 units/L (35-129) H 08/20/17 04:52 Total Protein 7.9 g/dL (6.3-8.2) 08/20/17 04:52 Albumin 3.0 g/dL (3.9-5) L 08/20/17 04:52 Albumin/Globulin Ratio 0.6 % 08/20/17 04:52 Random Vancomycin 15.5 ug/mL (0-40.0) 08/20/17 10:59 Blood Type O POSITIVE 08/19/17 19:34 Antibody Screen Negative 08/19/17 19:34
--- NOTE | 2017-08-22 14:45 | Progress Note ---
Assessment and Plan 36 yo F with abscess of back 1. continue daily packing changes, orders placed for nursing to perform dressing changes starting today 2. heating pad to area to help with induration 3. c/w abx 4. strict glucose control Please call with questions or concerns. Subjective Date of service: 08/22/17 Narrative: Pt seen and examined. States she feels better today. No n/v. Tolerating PO Objective Vital Signs - 12hr 08/22/17 08/22/17 08/22/17 03:28 08:48 10:41 Temperature 98.9 F 98.2 F Pulse Rate 111 H 105 H Respiratory 20 20 Rate Blood Pressure 107/66 140/85 140/85 O2 Sat by Pulse 98 96 Oximetry 08/22/17 11:25 Temperature 99.0 F Pulse Rate 103 H Respiratory 20 Rate Blood Pressure 172/97 O2 Sat by Pulse 97 Oximetry - General physical appearance Narrative Exam: Gen: AAOx3. NAD Back wound: Induration and cellulitis improving. Dressing c/d/i - Labs 08/22/17 07:32 08/22/17 07:32 Diabetes panel 08/22/17 Range/Units 07:32 Sodium 140 (137-145) mmol/L Potassium 3.6 (3.6-5.0) mmol/L Chloride 99.2 (98-107) mmol/L Carbon Dioxide 27 (22-30) mmol/L BUN 21 H (7-17) mg/dL Creatinine 2.5 H (0.7-1.2) mg/dL Glucose 295 H (65-100) mg/dL Calcium 9.5 (8.4-10.2) mg/dL Calcium panel 08/22/17 Range/Units 07:32 Calcium 9.5 (8.4-10.2) mg/dL Pituitary panel 08/22/17 Range/Units 07:32 Sodium 140 (137-145) mmol/L Potassium 3.6 (3.6-5.0) mmol/L Chloride 99.2 (98-107) mmol/L Carbon Dioxide 27 (22-30) mmol/L BUN 21 H (7-17) mg/dL Creatinine 2.5 H (0.7-1.2) mg/dL Glucose 295 H (65-100) mg/dL Calcium 9.5 (8.4-10.2) mg/dL Adrenal panel 08/22/17 Range/Units 07:32 Sodium 140 (137-145) mmol/L Potassium 3.6 (3.6-5.0) mmol/L Chloride 99.2 (98-107) mmol/L Carbon Dioxide 27 (22-30) mmol/L BUN 21 H (7-17) mg/dL Creatinine 2.5 H (0.7-1.2) mg/dL Glucose 295 H (65-100) mg/dL Calcium 9.5 (8.4-10.2) mg/dL
[2017-08-23] MEDS: NORCO 5/325 PO PRN ×4 (00:47→22:12)
[2017-08-23] MEDS: MORPHINE IV PRN (04:03)
[2017-08-23] MEDS: HumaLOG SUB-Q SCH ×4 (07:37→22:11)
[2017-08-23 08:28] LABS: Hematocrit 26.4 % (30.3-42.9); Hemoglobin 8.4 gm/dl (10.1-14.3); Mean Corpuscular HGB Conc 32 % (30-34); Mean Corpuscular Volume 81 fl (79-97); Platelet Count 630 K/mm3 (140-440); Red Blood Count 3.27 M/mm3 (3.65-5.03); Red Cell Distribution Width 16.2 % (13.2-15.2)
[2017-08-23 08:32] LABS: Mean Corpuscular Hemoglobin 26 pg (28-32)
[2017-08-23] MEDS: APRESOLINE PO SCH ×3 (09:01→22:10)
[2017-08-23] MEDS: SODIUM BICARBONATE PO SCH ×3 (09:50→22:10)
[2017-08-23] MEDS: NORVASC PO SCH (09:50)
[2017-08-23] MEDS: PEPCID PO SCH ×2 (09:50→22:11)
[2017-08-23] MEDS: SODIUM CHLORIDE FLUSH SYRINGE 10 ML IV SCH ×2 (09:52→22:11)
[2017-08-23] MEDS ORDERED: VANCOMYCIN/NS 1 GM/250 ML 1 GM/250 ML BAG IV ONE (11:00)
--- NOTE | 2017-08-23 13:25 | Progress Note ---
Assessment and Plan Assessment and plan: Ms. Garland is 36 yo woman with a history of right foot osteomyelitis (recently finished iv abx coarse, picc was removed also), CKD 3/4, hypertension, dm type 2 , Anemia, pcn allergy and anxiety disorder who presented to ED for the 4th time this month with back abscess for the last 2 weeks. Patient seen by ED physician on 08/17/17 and was discharged after I-n-D and wound packing on oral antibiotics, clindamycin which MRSA turned out to be resistant to Clindamycin. Patient came back for worsening abscess. -Sepsis from Cellulilits of the back with Abscess on the right at T12 level s/p i-n-d ER prior visit (08/17/17) poa: Gen. Surgery consulted, wound care, iv abx -CKD 3, now with ARF vasomotor nephropathy: consult Nephrology -AOCD: repeat cbc in am -DM type 2 with uncontrolled hyperglycemia: ssi, ada diet -Intractable nausea: add iv Reglan Renal function worsen, hold discharge. Consulted Nephrology today. You have to go back to prior ED on 08/17 visit to get the procedure not and wound culture results on 08/17/17 growing MRSA, continue iv Vancomycin, adjust dose for the renal failure History Interval history: Patient was seen and examined. Follow-up on current diagnosis of back infection , which is improving. Overnight uneventful. Patient denies any chest pain, shortness breath, nausea/vomiting or severe headaches. Imaging, nursing note, chart, labs and old chart reviewed. Discussed with patient. Hospitalist Physical - Physical exam Narrative exam: GEN: WDWN, NAD, Awake, Alert, Orientated x 3 HEENT: NCAT, EOMI, PERRL, OP Clear NECK: supple, no adenopathy, no thyromegaly, no JVD CVS/HEART: RRR, normal S1S2, pulses present bilaterally CHEST/LUNGS: CTA B, Symmetrical chest expansion, good air entry bilaterally GI/Abdomen: soft, NTND, good bowel sounds, no guarding or rebound /Bladder: no suprapubic tenderness, no CVA or paraspinal tenderness EXT/Skin: right mid back abscess dsg c/d/i MSK: FROM x 4 Neuro: CN 2-12 grossly intact, no new focal deficits Psych: calm - Constitutional Vitals: Temp Pulse Resp BP Pulse Ox 97.8 F 89 20 110/52 99 08/23/17 07:08 08/23/17 02:59 08/23/17 07:08 08/23/17 07:08 08/23/17 02:59 General appearance: Present: no acute distress, well-nourished Results - Labs CBC & Chem 7: 08/23/17 07:27 08/22/17 07:32 Labs: Laboratory Last Values WBC 15.6 K/mm3 (4.5-11.0) H 08/23/17 07:27 RBC 3.27 M/mm3 (3.65-5.03) L 08/23/17 07:27 Hgb 8.4 gm/dl (10.1-14.3) L 08/23/17 07:27 Hct 26.4 % (30.3-42.9) L 08/23/17 07:27 MCV 81 fl (79-97) 08/23/17 07:27 MCH 26 pg (28-32) L 08/23/17 07:27 MCHC 32 % (30-34) 08/23/17 07:27 RDW 16.2 % (13.2-15.2) H 08/23/17 07:27 Plt Count 630 K/mm3 (140-440) H 08/23/17 07:27 Lymph % (Auto) 10.3 % (13.4-35.0) L 08/20/17 04:52 [place] % (Auto) 7.2 % (0.0-7.3) 08/20/17 04:52 Eos % (Auto) 0.2 % (0.0-4.3) 08/20/17 04:52 Baso % (Auto) 0.3 % (0.0-1.8) 08/20/17 04:52 Lymph # 1.6 K/mm3 (1.2-5.4) 08/20/17 04:52 [place] # 1.1 K/mm3 (0.0-0.8) H 08/20/17 04:52 Eos # 0.0 K/mm3 (0.0-0.4) 08/20/17 04:52 Baso # 0.0 K/mm3 (0.0-0.1) 08/20/17 04:52 Add Manual Diff Complete 08/19/17 19:34 Total Counted 100 08/19/17 19:34 Seg Neutrophils % 82.0 % (40.0-70.0) H 08/20/17 04:52 Seg Neuts % (Manual) 91.0 % (40.0-70.0) H 08/19/17 19:34 Band Neutrophils % 0 % 08/19/17 19:34 Lymphocytes % (Manual) 2.0 % (13.4-35.0) L 08/19/17 19:34 Reactive Lymphs % (Man) 0 % 08/19/17 19:34 Monocytes % (Manual) 2.0 % (0.0-7.3) 08/19/17 19:34 Eosinophils % (Manual) 0 % (0.0-4.3) 08/19/17 19:34 Basophils % (Manual) 0 % (0.0-1.8) 08/19/17 19:34 Metamyelocytes % 3.0 % 08/19/17 19:34 Myelocytes % 2.0 % 08/19/17 19:34 Promyelocytes % 0 % 08/19/17 19:34 Blast Cells % 0 % 08/19/17 19:34 Nucleated RBC % Not Reportable 08/19/17 19:34 Seg Neutrophils # 12.6 K/mm3 (1.8-7.7) H 08/20/17 04:52 Seg Neutrophils # Man 14.2 K/mm3 (1.8-7.7) H 08/19/17 19:34 Band Neutrophils # 0.0 K/mm3 08/19/17 19:34 Lymphocytes # (Manual) 0.3 K/mm3 (1.2-5.4) L 08/19/17 19:34 Abs React Lymphs (Man) 0.0 K/mm3 08/19/17 19:34 Monocytes # (Manual) 0.3 K/mm3 (0.0-0.8) 08/19/17 19:34 Eosinophils # (Manual) 0.0 K/mm3 (0.0-0.4) 08/19/17 19:34 Basophils # (Manual) 0.0 K/mm3 (0.0-0.1) 08/19/17 19:34 Metamyelocytes # 0.5 K/mm3 08/19/17 19:34 Myelocytes # 0.3 K/mm3 08/19/17 19:34 Promyelocytes # 0.0 K/mm3 08/19/17 19:34 Blast Cells # 0.0 K/mm3 08/19/17 19:34 WBC Morphology Not Reportable 08/19/17 19:34 Hypersegmented Neuts Not Reportable 08/19/17 19:34 Hyposegmented Neuts Not Reportable 08/19/17 19:34 Hypogranular Neuts Not Reportable 08/19/17 19:34 Smudge Cells Not Reportable 08/19/17 19:34 Toxic Granulation Not Reportable 08/19/17 19:34 Toxic Vacuolation Not Reportable 08/19/17 19:34 Dohle Bodies Not Reportable 08/19/17 19:34 Pelger-Huet Anomaly Not Reportable 08/19/17 19:34 Chelsie Rods Not Reportable 08/19/17 19:34 Platelet Estimate Consistent w auto 08/19/17 19:34 Clumped Platelets Not Reportable 08/19/17 19:34 Plt Clumps, EDTA Not Reportable 08/19/17 19:34 Large Platelets Not Reportable 08/19/17 19:34 Giant Platelets Not Reportable 08/19/17 19:34 Platelet Satelliting Not Reportable 08/19/17 19:34 Plt Morphology Comment Not Reportable 08/19/17 19:34 RBC Morphology Not Reportable 08/19/17 19:34 Dimorphic RBCs Not Reportable 08/19/17 19:34 Polychromasia Not Reportable 08/19/17 19:34 Hypochromasia Not Reportable 08/19/17 19:34 Poikilocytosis Not Reportable 08/19/17 19:34 Anisocytosis Few 08/19/17 19:34 Microcytosis Not Reportable 08/19/17 19:34 Macrocytosis Not Reportable 08/19/17 19:34 Spherocytes Not Reportable 08/19/17 19:34 Pappenheimer Bodies Not Reportable 08/19/17 19:34 Sickle Cells Not Reportable 08/19/17 19:34 Target Cells Not Reportable 08/19/17 19:34 Tear Drop Cells Not Reportable 08/19/17 19:34 Ovalocytes Not Reportable 08/19/17 19:34 Helmet Cells Not Reportable 08/19/17 19:34 Torrez-[place] Bodies Not Reportable 08/19/17 19:34 [place] Rings Not Reportable 08/19/17 19:34 [place] Cells Not Reportable 08/19/17 19:34 Bite Cells Not Reportable 08/19/17 19:34 Crenated Cell Not Reportable 08/19/17 19:34 Elliptocytes Not Reportable 08/19/17 19:34 Acanthocytes (Spur) Not Reportable 08/19/17 19:34 Rouleaux Not Reportable 08/19/17 19:34 Hemoglobin C Crystals Not Reportable 08/19/17 19:34 Schistocytes Not Reportable 08/19/17 19:34 Malaria parasites Not Reportable 08/19/17 19:34 Joe Bodies Not Reportable 08/19/17 19:34 Hem Pathologist Commnt No 08/19/17 19:34 Sodium 140 mmol/L (137-145) 08/22/17 07:32 Potassium 3.6 mmol/L (3.6-5.0) 08/22/17 07:32 Chloride 99.2 mmol/L (98-107) 08/22/17 07:32 Carbon Dioxide 27 mmol/L (22-30) 08/22/17 07:32 Anion Gap 17 mmol/L 08/22/17 07:32 BUN 21 mg/dL (7-17) H 08/22/17 07:32 Creatinine 2.5 mg/dL (0.7-1.2) H 08/22/17 07:32 Estimated GFR 26 ml/min 08/22/17 07:32 BUN/Creatinine Ratio 8 % 08/22/17 07:32 Glucose 295 mg/dL (65-100) H 08/22/17 07:32 POC Glucose 190 (70-105) H 08/23/17 12:18 Hemoglobin A1c 12.7 % (4-6) H 08/19/17 22:00 Lactic Acid 0.90 mmol/L (0.7-2.0) 08/19/17 19:34 Calcium 9.5 mg/dL (8.4-10.2) 08/22/17 07:32 Total Bilirubin < 0.20 mg/dL (0.1-1.2) 08/20/17 04:52 AST 10 units/L (5-40) 08/20/17 04:52 ALT 11 units/L (7-56) 08/20/17 04:52 Alkaline Phosphatase 213 units/L (35-129) H 08/20/17 04:52 Total Protein 7.9 g/dL (6.3-8.2) 08/20/17 04:52 Albumin 3.0 g/dL (3.9-5) L 08/20/17 04:52 Albumin/Globulin Ratio 0.6 % 08/20/17 04:52 Random Vancomycin 7.0 ug/mL (0-40.0) 08/23/17 07:27 Blood Type O POSITIVE 08/19/17 19:34 Antibody Screen Negative 08/19/17 19:34
--- NOTE | 2017-08-23 20:10 | Consultation ---
History of Present Illness - Reason for Consult Consult date: 08/23/17 acute renal failure Requesting physician: JACOB PHILLIPS - History of Present Illness 36-year-old lady who is not known to me with a history of insulin-dependent diabetes mellitus since age 17, hypertension and stage III chronic kidney disease who recently moved from [facility]. Patient has been presenting to the emergency room over the last 2 weeks with subcutaneous abscesses on her back. She was seen in the ER 4 times and had incision and drainage and was started on oral clindamycin on the last visit. Patient came back because of worsening abscess and wound infection is resistant to clindamycin. Patient was started on intravenous vancomycin and has been seen by general surgery team with the plan for repeat incision and drainage if not improving with antibiotics. Patient was being prepared for discharge today when kidney function worsened with BUN and creatinine increasing from 18/1.7 to 21/2.5 mg/dL. I'm consulted to assist with managing this. Patient denies any voiding difficulties. No frequency or urgency dysuria or hematuria. She has not been taking any nonsteroidal anti-inflammatory drugs and has not been exposed to radiocontrast. 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 denies: smoking, alcohol abuse, prescription drug abuse, IV drug use Family history: no significant family history, diabetes (Mother), hypertension ( mother), other (father is in good health, one brother that of cardiac complications of rheumatic fever at age 28) Medications and Allergies Allergies Allergy/AdvReac Type Severity Reaction Status Date / Time lisinopril Allergy Swelling Verified 08/19/17 15:37 Penicillins Allergy Swelling Verified 08/19/17 15:37 Home Medications Medication Instructions Recorded Confirmed Last Taken Type Cyclobenzaprine [Flexeril 10 MG 10 mg PO TID PRN #30 tablet 06/15/17 07/20/17 Rx TAB] 10mg Insulin NPH/Regular [NovoLIN 70/30] 10 unit SUB-Q BIDDIAB #10 units 06/15/1707/20/17 Rx 10units Lispro Insulin [Humalog] 1 dose SUB-Q ACHS PRN #100 units 06/15/17 07/20/17 Rx 1 Sodium Bicarbonate 650 mg PO TID #90 tablet 06/15/17 07/20/17 07/20/17 Rx 650mg amLODIPine [Norvasc] 10 mg PO QDAY #30 tablet 06/15/17 07/20/17 07/20/17 Rx 10mg hydrALAZINE [Apresoline TAB] 50 mg PO TID #90 tab 06/15/17 07/20/17 07/20/17 Rx 50mg Acetaminophen/Codeine [Tylenol 1 tab PO Q4HR PRN #15 tablet 08/11/17 Unknown Rx /Codeine # 3 tab] Sulfamethoxazole/Trimethoprim 1 each PO BID #20 tablet 08/11/17 Unknown Rx [Bactrim DS TAB] Ibuprofen [Motrin] 600 mg PO Q8H PRN #12 tablet 08/12/17 Unknown Rx Clindamycin [Clindamycin CAP] 300 mg PO Q8H 10 Days cap 08/17/17 Unknown Rx HYDROcodone/APAP 5-325 [[place] 1 each PO Q6HR PRN #15 tablet 08/17/17 Unknown Rx 5/325] Ondansetron [Zofran Odt] 4 mg PO Q8HR PRN #10 tab.rapdis 08/17/17 Unknown Rx Active Meds: Active Medications Acetaminophen (Tylenol) 650 mg PO Q4H PRN PRN Reason: Pain MILD(1-3)/Fever >100.5/GARRIDO Acetaminophen/Hydrocodone Bitart ([place] 5/325) 1 each PO Q6HR PRN PRN Reason: Pain, Moderate (4-6) Last Admin: 08/23/17 15:00 Dose: 1 each Amlodipine Besylate (Norvasc) 10 mg PO QDAY ZAKIYA Last Admin: 08/23/17 09:50 Dose: 10 mg Cyclobenzaprine HCl (Flexeril) 10 mg PO TID PRN PRN Reason: Muscle Spasm Last Admin: 08/22/17 10:40 Dose: 10 mg Famotidine (Pepcid) 10 mg PO BID [facility] Last Admin: 08/23/17 09:50 Dose: 10 mg Hydralazine HCl (Apresoline) 50 mg PO TID [facility] Last Admin: 08/23/17 14:30 Dose: 50 mg Hydralazine HCl (Apresoline) 5 mg IV Q6H PRN PRN Reason: Hypertension Last Admin: 08/22/17 00:08 Dose: 5 mg Insulin Human Isoph/Insulin Regular (Humulin 70/30) 10 unit SUB-Q BIDDIAB [facility] Last Admin: 08/23/17 18:33 Dose: 10 unit Insulin Human Lispro (Humalog) 0 unit SUB-Q ACHS [facility]; Protocol Last Admin: 08/23/17 18:33 Dose: 4 unit Metoclopramide HCl (Reglan) 10 mg IV Q4H PRN PRN Reason: Nausea And Vomiting Last Admin: 08/22/17 00:09 Dose: 10 mg Morphine Sulfate (Morphine) 2 mg IV Q4H PRN PRN Reason: Pain, Moderate (4-6) Last Admin: 08/23/17 04:03 Dose: 2 mg Ondansetron HCl (Zofran) 4 mg IV Q8H PRN PRN Reason: Nausea And Vomiting Last Admin: 08/21/17 20:24 Dose: 4 mg Sodium Bicarbonate (Sodium Bicarbonate) 650 mg PO TID [facility] Last Admin: 08/23/17 14:30 Dose: 650 mg Sodium Chloride (Sodium Chloride Flush Syringe 10 Ml) 10 ml IV BID [facility] Last Admin: 08/23/17 09:52 Dose: 10 ml Sodium Chloride (Sodium Chloride Flush Syringe 10 Ml) 10 ml IV PRN PRN PRN Reason: LINE FLUSH Vancomycin HCl (Vancomycin Pharmacy To Dose) 1 each IV PKCONSULT [facility]; Protocol Review of Systems All systems: negative (Constitutional: no fever or chills.appetite was poor and she believes she has lost weight . 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 Cardiovascular: No chest pain, shortness of breath, palpitations, lower extremity swelling or dizziness. Respiratory: No cough, sputum, shortness of breath, hemoptysis or wheezing. Gastrointestinal: Admits to nausea and vomiting. No Diarrhea, abdominal pain, hematemesis or melena. Genitourinary: No frequency urgency dysuria or hematuria. hematologic: No abnormal bleeding or bruising. Integumentary: no pruritus or rash. Neurological: No headache no focal weakness has numbness in the left foot more than the right. No syncope or seizures. The crying: Blood sugar has been labile. She has both heat and cold intolerance. Musculoskeletal: No joint pains no stiffness. Psychiatry: Admits to anxiety but no depression) Exam - Vital Signs Vital signs: Vital Signs Temp Pulse Resp BP Pulse Ox 97.9 F 114 H 18 162/95 100 08/19/17 15:37 08/19/17 15:37 08/19/17 15:37 08/19/17 15:37 08/19/17 15:37 - Physical Exam Narrative exam: Young -Brazilian female lying in bed in no acute distress HEENT: NCAT, left opaque, pink and dry oral mucous membrane Neck: Supple, no venous distention CVS: S1S2 RRR with no murmur, rub or gallop Chest: Clear to auscultation Abdomen: Protuberant, soft, nontender, no organomegaly, bowel sounds are present Extremities: No edema, no clubbing Gen. denied deferred Skin warm and dry, area of induration over her back with erythema, hyperpigmentation but no drainage now Neuro: Awake, alert no focal deficits Results - Lab Results 08/23/17 07:27 08/22/17 07:32 Most recent lab results Calcium 9.5 mg/dL (8.4-10.2) 08/22/17 07:32 Assessment and Plan - Patient Problems (1) Other acute kidney failure Current Visit: Yes Status: Acute Plan to address problem: Pre-renal azotemia versus acute tubular necrosis secondary to sepsis. Also concerned about antibiotic induced into nephritis versus acute tubular necrosis. Get urinalysis and check fractional discretion of sodium. Resume volume repletion. Follow up electrolytes and renal function. Do a more extensive evaluation if not improving with the above. (2) Uncontrolled insulin dependent diabetes mellitus Current Visit: Yes Status: Acute Plan to address problem: Hemoglobin A1c was 12.7%. Needs improved blood sugar control. Diabetic teaching. Blood sugar management by primary attending (3) Hypertensive chronic kidney disease with stage 1 through stage 4 chronic kidney disease, or unspecified chronic kidney disease Current Visit: Yes Status: Acute Plan to address problem: Follow blood pressure on current medications (4) Chronic kidney disease, stage III (moderate) Current Visit: Yes Status: Acute Plan to address problem: Presumably secondary to diabetic nephropathy giving long-standing history of diabetes with retinopathy. (5) Abscess of back Current Visit: Yes Status: Acute Plan to address problem: Continue antibiotics and management by surgeon (6) Anemia Current Visit: Yes Status: Chronic Qualifiers: Anemia type: unspecified type Qualified Code(s): D64.9 - Anemia, unspecified Plan to address problem: Follow-up hemoglobin
[2017-08-23] MEDS ORDERED: NACL 0.9% 1000 ML 1,000 ML IV SCH (21:00)
[2017-08-24] MEDS: MORPHINE IV PRN ×3 (02:55→21:19)
[2017-08-24 07:55] LABS: Hematocrit 24.8 % (30.3-42.9); Hemoglobin 7.9 gm/dl (10.1-14.3); Mean Corpuscular HGB Conc 32 % (30-34); Mean Corpuscular Hemoglobin 26 pg (28-32); Mean Corpuscular Volume 81 fl (79-97); Platelet Count 530 K/mm3 (140-440); Red Blood Count 3.06 M/mm3 (3.65-5.03); Red Cell Distribution Width 16.1 % (13.2-15.2)
[2017-08-24] MEDS: APRESOLINE PO SCH ×3 (08:40→21:19)
[2017-08-24] MEDS: SODIUM BICARBONATE PO SCH ×3 (08:40→21:18)
[2017-08-24] MEDS: HumaLOG SUB-Q SCH ×4 (08:47→22:05)
--- NOTE | 2017-08-24 08:49 | Progress Note ---
Assessment and Plan - Patient Problems (1) Other acute kidney failure Current Visit: Yes Status: Acute Plan to address problem: Pre-renal azotemia versus acute tubular necrosis secondary to sepsis. Also concerned about antibiotic induced into nephritis versus acute tubular necrosis. Continue intravenous fluids. Follow up electrolytes and renal function. Hopefully kidney function status to improve in the morning (2) Uncontrolled insulin dependent diabetes mellitus Current Visit: Yes Status: Acute Plan to address problem: Hemoglobin A1c was 12.7%. Needs improved blood sugar control. Diabetic teaching. Blood sugar management by primary attending (3) Hypertensive chronic kidney disease with stage 1 through stage 4 chronic kidney disease, or unspecified chronic kidney disease Current Visit: Yes Status: Acute Plan to address problem: Follow blood pressure on current medications (4) Chronic kidney disease, stage III (moderate) Current Visit: Yes Status: Acute Plan to address problem: Presumably secondary to diabetic nephropathy giving long-standing history of diabetes with retinopathy. (5) Abscess of back Current Visit: Yes Status: Acute Plan to address problem: Continue antibiotics and management by surgeon (6) Anemia Current Visit: Yes Status: Chronic Qualifiers: Anemia type: unspecified type Qualified Code(s): D64.9 - Anemia, unspecified Plan to address problem: Check anemia profile. Follow-up hemoglobin. Transfuse if hemoglobin decreases less than 7 g/dL (7) Hypokalemia Current Visit: Yes Status: Acute Plan to address problem: Supplement potassium and follow Subjective Date of service: 08/24/17 Principal diagnosis: acute kidney injury Interval history: Patient seen lying in bed. She has no new complaints. Had some back pain. Still wants to go home Objective - Exam Narrative Exam: Young -Burkinan female lying in bed in no acute distress HEENT: NCAT, left opaque, pink and dry oral mucous membrane Neck: Supple, no venous distention CVS: S1S2 RRR with no murmur, rub or gallop Chest: Clear to auscultation Abdomen: Protuberant, soft, nontender, no organomegaly, bowel sounds are present Extremities: No edema, no clubbing Gen. denied deferred Skin warm and dry, area of induration over her back with erythema, hyperpigmentation but no drainage now Neuro: Awake, alert no focal deficits - Vital Signs Vital signs: Vital Signs - 12hr 08/23/17 08/23/17 08/24/17 21:29 22:00 02:58 Temperature 98.5 F Pulse Rate 113 H Respiratory 16 18 Rate Respiratory 18 Rate [Back] Blood Pressure 129/80 O2 Sat by Pulse 96 Oximetry 08/24/17 08:26 Temperature 98.4 F Pulse Rate 95 H Respiratory 20 Rate Respiratory Rate [Back] Blood Pressure 128/67 O2 Sat by Pulse 97 Oximetry - Lab 08/24/17 06:41 08/24/17 06:41 Most recent lab results Calcium 9.0 mg/dL (8.4-10.2) 08/24/17 06:41 Phosphorus 4.10 mg/dL (2.5-4.5) 08/24/17 06:41 Magnesium 2.00 mg/dL (1.7-2.3) 08/24/17 06:41
[2017-08-24] MEDS: SODIUM CHLORIDE FLUSH SYRINGE 10 ML IV SCH ×2 (10:13→21:20)
[2017-08-24] MEDS: NORVASC PO SCH (10:13)
[2017-08-24] MEDS: PEPCID PO SCH ×2 (10:13→21:18)
--- NOTE | 2017-08-24 13:52 | Progress Note ---
Assessment and Plan Ms. Garland is 36 yo woman with a history of right foot osteomyelitis, CKD 3/4, hypertension, dm type 2, Anemia, pcn allergy and anxiety disorder who presented to ED with back abscess for the last 2 weeks. Patient had 3 or 4 visits or emergency room for the same thing. Patient seen by ED physician about 3 days ago and was discharged after I-n-D and wound packing on oral antibiotics and clindamycin. Patient came back for worsening abscess -Cellulitis with Abscess on the right side of the back at T12 level: Continue with IV vancomycin and local wound care. Gen. Surgery following -CKD 4: From an acidemia and acute renal necrosis Avoid nephrotoxic medication Pigment Making Supervisor following -DM type 2 ssi, ada diet -Intractable nausea: Resolving. IV Zofran. - Hypokalemia Commands and check magnesium level - Anemia of chronic disease work up and trend -DVT prophylaxis Subjective Date of service: 08/24/17 Principal diagnosis: sepsis from cellulitis, diabetes mellitus, positive vomiting. Interval history: Patient seen and examined. No new complaints. Denies any fever. Reviewed laboratory and radiological data Objective - Exam Narrative Exam: Constitutional: Well-nourished well-developed. In no distress Head: Normocephalic atraumatic Eyes: Pupils are equal round and reactive to light Nose: No enlarged turbinates, no septal deviation. Mouth: Moist mucous membranes. Neck: Supple no thyromegaly. No bruit. No JVD Heart: Regular rate and rhythm, S1-S2 abnormal. No rubs murmurs or gallop Lungs: Clear to auscultation bilaterally no rales or rhonchi Abdomen: Soft, nontender. Bowel sound are present. Extremities: No edema no cyanosis and no clubbing. Musculoskeletal system: Subsequent chest and back from incision and drainage of abscess Neuro: Alert oriented Oriented x3. No focal sensory or motor deficit. Skin: No rashes no hyperemic spots Psychiatry: Euthymic. Calm. - Constitutional Vitals: Vital Signs - 12hr 08/24/17 08/24/17 08/24/17 02:58 08:26 10:00 Temperature 98.4 F Pulse Rate 95 H Respiratory 20 20 Rate Respiratory 18 Rate [Back] Blood Pressure 128/67 O2 Sat by Pulse 97 Oximetry 08/24/17 10:13 Temperature Pulse Rate Respiratory 20 Rate Respiratory Rate [Back] Blood Pressure O2 Sat by Pulse Oximetry - Labs CBC & Chem 7: 08/24/17 06:41 08/24/17 06:41 Labs: Abnormal lab results 08/23/17 08/23/17 08/24/17 Range/Units 16:59 21:38 05:23 WBC (4.5-11.0) K/mm3 RBC (3.65-5.03) M/mm3 Hgb (10.1-14.3) gm/dl Hct (30.3-42.9) % MCH (28-32) pg RDW (13.2-15.2) % Plt Count (140-440) K/mm3 Potassium (3.6-5.0) mmol/L Chloride (98-107) mmol/L BUN (7-17) mg/dL Creatinine (0.7-1.2) mg/dL Glucose (65-100) mg/dL POC Glucose 278 H 240 H 182 H (70-105) 08/24/17 08/24/17 08/24/17 Range/Units 06:41 06:41 11:48 WBC 13.6 H (4.5-11.0) K/mm3 RBC 3.06 L (3.65-5.03) M/mm3 Hgb 7.9 L (10.1-14.3) gm/dl Hct 24.8 L (30.3-42.9) % MCH 26 L (28-32) pg RDW 16.1 H (13.2-15.2) % Plt Count 530 H (140-440) K/mm3 Potassium 3.1 L (3.6-5.0) mmol/L Chloride 95.4 L (98-107) mmol/L BUN 23 H (7-17) mg/dL Creatinine 2.5 H (0.7-1.2) mg/dL Glucose 213 H (65-100) mg/dL POC Glucose 163 H (70-105)
[2017-08-24] MEDS ORDERED: VANCOMYCIN/NS 1 GM/250 ML 1 GM/250 ML BAG IV ONE (15:00)
--- NOTE | 2017-08-24 17:55 | Progress Note ---
Assessment and Plan 36 yo F with abscess of back s/p ER incision and drainage, MRSA 1. continue daily packing changes per nursing 2. heating pad to area to help with induration 3. c/w abx, recommend ID consult to aid in outpatient abx recommendations 4. strict glucose control 5. patient to follow up in wound care clinic on dc. D/W Case management OK to dc home from surgery standpoint. Please call with questions or concerns. Subjective Date of service: 08/24/17 Narrative: Pt seen and examined. No complaints. Tolerating diet. Afebrile. Wants to go home. Objective Vital Signs - 12hr 08/24/17 08/24/17 08/24/17 08:26 10:00 10:13 Temperature 98.4 F Pulse Rate 95 H Respiratory 20 20 20 Rate Blood Pressure 128/67 O2 Sat by Pulse 97 Oximetry 08/24/17 15:45 Temperature 98.8 F Pulse Rate 112 H Respiratory 19 Rate Blood Pressure 123/69 O2 Sat by Pulse 100 Oximetry - General physical appearance Narrative Exam: Gen: AAOx3. NAD Back wound: Packing removed. Slough at wound surface and purulent drainage on dressing. Wound is 1.5 cm deep and does not tunnel. Surrounding skin has mild induration which is improving. Wound cleansed and packed with one piece of 1/4 inch iodoform packing. Covered with 4x4 gauze and paper tape. - Labs 08/24/17 06:41 08/24/17 06:41 Diabetes panel 08/24/17 Range/Units 06:41 Sodium 139 (137-145) mmol/L Potassium 3.1 L (3.6-5.0) mmol/L Chloride 95.4 L (98-107) mmol/L Carbon Dioxide 28 (22-30) mmol/L BUN 23 H (7-17) mg/dL Creatinine 2.5 H (0.7-1.2) mg/dL Glucose 213 H (65-100) mg/dL Calcium 9.0 (8.4-10.2) mg/dL Calcium panel 08/24/17 Range/Units 06:41 Calcium 9.0 (8.4-10.2) mg/dL Phosphorus 4.10 (2.5-4.5) mg/dL Pituitary panel 08/24/17 Range/Units 06:41 Sodium 139 (137-145) mmol/L Potassium 3.1 L (3.6-5.0) mmol/L Chloride 95.4 L (98-107) mmol/L Carbon Dioxide 28 (22-30) mmol/L BUN 23 H (7-17) mg/dL Creatinine 2.5 H (0.7-1.2) mg/dL Glucose 213 H (65-100) mg/dL Calcium 9.0 (8.4-10.2) mg/dL Adrenal panel 08/24/17 Range/Units 06:41 Sodium 139 (137-145) mmol/L Potassium 3.1 L (3.6-5.0) mmol/L Chloride 95.4 L (98-107) mmol/L Carbon Dioxide 28 (22-30) mmol/L BUN 23 H (7-17) mg/dL Creatinine 2.5 H (0.7-1.2) mg/dL Glucose 213 H (65-100) mg/dL Calcium 9.0 (8.4-10.2) mg/dL
[2017-08-24] MEDS ORDERED: K-DUR PO ONE (20:00)
[2017-08-25 00:52] VITALS: BP 128/79
[2017-08-25] MEDS: MORPHINE IV PRN (05:03)
[2017-08-25] MEDS: HumaLOG SUB-Q SCH ×2 (07:30→11:30)
[2017-08-25 07:52] LABS: Calcium 8.8 mg/dL (8.4-10.2)
[2017-08-25] MEDS: SODIUM BICARBONATE PO SCH ×2 (08:00→13:43)
[2017-08-25] MEDS: APRESOLINE PO SCH ×2 (10:08→13:44)
[2017-08-25] MEDS: SODIUM CHLORIDE FLUSH SYRINGE 10 ML IV SCH (10:09)
[2017-08-25] MEDS: PEPCID PO SCH (10:09)
[2017-08-25] MEDS: NORVASC PO SCH (10:10)
--- NOTE | 2017-08-25 10:47 | Consultation ---
History of Present Illness - Reason for Consult Consult date: 08/25/17 - History of Present Illness Microbiology: Blood cultures: Urine cultures: Respiratory cultures: Wound cultures: Stool cultures: Other: Current Antimicrobials: Zosyn Ceftriaxone Levaquin Vancomycin Cefazolin Cefepime Meropenem Clindamycin Metronidazole Previous Antimicrobials: Past History Past Medical History: diabetes (insulin-dependent diagnosed at age 17, complicated by neuropathy and nephropathy), hypertension, other (asthma, anxiety , chronic kidney disease stage III neuropathy, osteomyelitis of the right foot) Past Surgical History: appendectomy, Other (right foot and left retinal surgeries, endometrial surgery, left oophorectomy and salpingectomy) Social history: , lives with family (with her sister), 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 denies: smoking, alcohol abuse, prescription drug abuse, IV drug use Family history: no significant family history, diabetes (Mother), hypertension ( mother), other (father is in good health, one brother that of cardiac complications of rheumatic fever at age 28) Medications and Allergies Allergies Allergy/AdvReac Type Severity Reaction Status Date / Time lisinopril Allergy Swelling Verified 08/19/17 15:37 Penicillins Allergy Swelling Verified 08/19/17 15:37 Home Medications Medication Instructions Recorded Confirmed Last Taken Type Cyclobenzaprine [Flexeril 10 MG 10 mg PO TID PRN #30 tablet 06/15/17 08/23/17 Rx TAB] Insulin NPH/Regular [NovoLIN 70/30] 10 unit SUB-Q BIDDIAB #10 units 06/15/1708/18/17 Rx Lispro Insulin [Humalog] 1 dose SUB-Q ACHS PRN #100 units 06/15/17 08/23/17 Rx Sodium Bicarbonate 650 mg PO TID #90 tablet 06/15/17 08/23/17 08/18/17 Rx amLODIPine [Norvasc] 10 mg PO QDAY #30 tablet 06/15/17 08/23/17 08/18/17 Rx hydrALAZINE [Apresoline TAB] 50 mg PO TID #90 tab 06/15/17 08/23/17 08/18/17 Rx Acetaminophen/Codeine [Tylenol 1 tab PO Q4HR PRN #15 tablet 08/11/17 08/23/17 Rx /Codeine # 3 tab] Sulfamethoxazole/Trimethoprim 1 each PO BID #20 tablet 08/11/17 08/23/17 Rx [Bactrim DS TAB] Ibuprofen [Motrin] 600 mg PO Q8H PRN #12 tablet 08/12/17 08/23/17 08/18/17 Rx Clindamycin [Clindamycin CAP] 300 mg PO Q8H 10 Days cap 08/17/17 08/23/1708/18 Rx HYDROcodone/APAP 5-325 [[place] 1 each PO Q6HR PRN #15 tablet 08/17/17 08/23/17 Rx 5/325] Ondansetron [Zofran Odt] 4 mg PO Q8HR PRN #10 tab.rapdis 08/17/17 08/23/1708/18 Rx Active Meds: Active Medications Acetaminophen (Tylenol) 650 mg PO Q4H PRN PRN Reason: Pain MILD(1-3)/Fever >100.5/GARRIDO Acetaminophen/Hydrocodone Bitart ([place] 5/325) 1 each PO Q6HR PRN PRN Reason: Pain, Moderate (4-6) Last Admin: 08/23/17 22:12 Dose: 1 each Amlodipine Besylate (Norvasc) 10 mg PO QDAY [facility] Last Admin: 08/25/17 10:10 Dose: 10 mg Cyclobenzaprine HCl (Flexeril) 10 mg PO TID PRN PRN Reason: Muscle Spasm Last Admin: 08/22/17 10:40 Dose: 10 mg Famotidine (Pepcid) 10 mg PO BID [facility] Last Admin: 08/25/17 10:09 Dose: 10 mg Hydralazine HCl (Apresoline) 50 mg PO TID [facility] Last Admin: 08/25/17 10:08 Dose: 50 mg Hydralazine HCl (Apresoline) 5 mg IV Q6H PRN PRN Reason: Hypertension Last Admin: 08/22/17 00:08 Dose: 5 mg Sodium Chloride (Nacl 0.9% 1000 Ml) 1,000 mls @ 75 mls/hr IV DIRECT [facility] Insulin Human Isoph/Insulin Regular (Humulin 70/30) 10 unit SUB-Q BIDDIAB [facility] Last Admin: 08/25/17 10:11 Dose: 10 unit Insulin Human Lispro (Humalog) 0 unit SUB-Q ACHS [facility]; Protocol Last Admin: 08/25/17 07:30 Dose: 4 unit Metoclopramide HCl (Reglan) 10 mg IV Q4H PRN PRN Reason: Nausea And Vomiting Last Admin: 08/22/17 00:09 Dose: 10 mg Morphine Sulfate (Morphine) 2 mg IV Q4H PRN PRN Reason: Pain, Moderate (4-6) Last Admin: 08/25/17 05:03 Dose: 2 mg Ondansetron HCl (Zofran) 4 mg IV Q8H PRN PRN Reason: Nausea And Vomiting Last Admin: 08/21/17 20:24 Dose: 4 mg Sodium Bicarbonate (Sodium Bicarbonate) 650 mg PO TID [facility] Last Admin: 08/25/17 08:00 Dose: 650 mg Sodium Chloride (Sodium Chloride Flush Syringe 10 Ml) 10 ml IV BID [facility] Last Admin: 08/25/17 10:09 Dose: 10 ml Sodium Chloride (Sodium Chloride Flush Syringe 10 Ml) 10 ml IV PRN PRN PRN Reason: LINE FLUSH Vancomycin HCl (Vancomycin Pharmacy To Dose) 1 each IV PKCONSULT [facility]; Protocol Physical Examination - Physical Exam Narrative exam: General appearance: Alert in NAD, conversant Eyes: anicteric sclerae, moist conjunctivae; no lid-lag; PERRLA HENT: Atraumatic; oropharynx clear with moist mucous membranes and no mucosal ulcerations/no oral thrush; normal hard and soft palate. Normal external ears. Neck: Trachea midline; supple, no thyromegaly or lymphadenopathy Lungs: CTA, with normal respiratory effort and no intercostal retractions CV: RRR, no murmurs Abdomen: Soft, non-tender; no masses or hepatosplenomegaly Extremities: No peripheral edema or extremity lymphadenopathy Skin: Normal temperature, turgor and texture; no rash, ulcers or subcutaneous nodules Psych: Appropriate affect, alert and oriented to person, place and time. Neuro: alert and oriented x 3. Moving all extermities Lines: No CVL / PICC - Constitutional Vitals: Vital Signs Temp Pulse Resp BP Pulse Ox 98.8 F 106 H 18 128/79 96 08/24/17 23:07 08/24/17 23:07 08/25/17 05:03 08/24/17 23:07 08/24/17 23:07 Temperature -Last 24 Hours Temperature 98.8 F Temperature 98.8 F Results - Labs CBC & Chem 7: 08/24/17 06:41 08/25/17 06:36 Labs: Abnormal lab results 08/24/17 08/24/17 08/24/17 Range/Units 11:48 17:05 21:35 Sodium (137-145) mmol/L Chloride (98-107) mmol/L BUN (7-17) mg/dL Creatinine (0.7-1.2) mg/dL Glucose (65-100) mg/dL POC Glucose 163 H 307 H 313 H (70-105) Iron (37-170) ug/dL 08/25/17 08/25/17 08/25/17 Range/Units 06:36 06:36 06:46 Sodium 133 L (137-145) mmol/L Chloride 96.4 L (98-107) mmol/L BUN 25 H (7-17) mg/dL Creatinine 2.4 H (0.7-1.2) mg/dL Glucose 237 H (65-100) mg/dL POC Glucose 258 H (70-105) Iron 29 L (37-170) ug/dL Assessment and Plan Assessment: 1) Sepsis: Present on admission, manifested by fever, tachycardia, hypotension, leukocytosis, bandemia, increased lactate. Etiology most likely. Plan: -follow-up blood cultures, urine culture Thank you for your consultation, will follow up with you. Shanelle Geller MD Infectious Diseases Specialist [facility] ([facility] [phone] O [phone]
--- NOTE | 2017-08-25 11:36 | Progress Note ---
Assessment and Plan - Patient Problems (1) Other acute kidney failure Current Visit: Yes Status: Acute Plan to address problem: Probable Acute tubular necrosis secondary to sepsis vs antibiotic induced interstitial nephritis. Kidney function is marginally better. Follow up electrolytes and renal function. Patient can be discharged home today from renal standpoint and will follow kidney function in the office in one week (2) Uncontrolled insulin dependent diabetes mellitus Current Visit: Yes Status: Acute Plan to address problem: Hemoglobin A1c was 12.7%. Needs improved blood sugar control. Diabetic teaching. Blood sugar management by primary attending (3) Hypertensive chronic kidney disease with stage 1 through stage 4 chronic kidney disease, or unspecified chronic kidney disease Current Visit: Yes Status: Acute Plan to address problem: Follow blood pressure on current medications (4) Chronic kidney disease, stage III (moderate) Current Visit: Yes Status: Acute Plan to address problem: Presumably secondary to diabetic nephropathy giving long-standing history of diabetes with retinopathy. (5) Abscess of back Current Visit: Yes Status: Acute Plan to address problem: Continue antibiotics and management by infectious disease/surgeon (6) Anemia Current Visit: Yes Status: Chronic Qualifiers: Anemia type: unspecified type Qualified Code(s): D64.9 - Anemia, unspecified Plan to address problem: Iron stores adequate. Follow-up hemoglobin. Transfuse if hemoglobin decreases less than 7 g/dL (7) Hypokalemia Current Visit: Yes Status: Acute Plan to address problem: Supplement potassium and follow Subjective Date of service: 08/25/17 Principal diagnosis: acute kidney injury Interval history: Patient seen lying in bed. She has no new complaints. Denies nausea or vomiting. No chest pain or shortness of breath Wants to go home Objective - Exam Narrative Exam: Young -[place] female lying in bed in no acute distress HEENT: NCAT, left opaque, pink and dry oral mucous membrane Neck: Supple, no venous distention CVS: S1S2 RRR with no murmur, rub or gallop Chest: Clear to auscultation Abdomen: Protuberant, soft, nontender, no organomegaly, bowel sounds are present Extremities: No edema, no clubbing Gen. denied deferred Skin warm and dry, area of induration over her back with erythema, hyperpigmentation, dressing stained Neuro: Awake, alert no focal deficits - Vital Signs Vital signs: Vital Signs - 12hr 08/25/17 05:03 Respiratory 18 Rate - Lab 08/24/17 06:41 08/25/17 06:36 Most recent lab results Calcium 8.8 mg/dL (8.4-10.2) 08/25/17 06:36 Phosphorus 4.10 mg/dL (2.5-4.5) 08/24/17 06:41 Magnesium 2.00 mg/dL (1.7-2.3) 08/24/17 06:41
--- NOTE | 2017-08-25 13:23 | Discharge Summary ---
Providers - Providers Date of Admission: 08/19/17 17:48 Date of discharge: 08/25/17 Attending physician: JCAOB PHILLIPS 08/19/17 21:43 Consult to Physician [CONS] Routine Comment: Consulting Provider: YOGI CONWAY Physician Instructions: Reason For Exam: Abscess 08/20/17 07:57 Consult to Wound/ET Nurse [CONS] Routine Reason For Exam: wound eval 08/23/17 13:20 Consult to Physician [CONS] Routine Comment: Consulting Provider: PREMA SLAUGHTER Physician Instructions: Reason For Exam: arf/ckd Primary care physician: [employer] Hospitalization Condition: Stable Hospital course: Ms. Garland is 36 yo woman with a history of right foot osteomyelitis (recently finished iv abx coarse, picc was removed also), CKD 3/4, hypertension, dm type 2 , Anemia, pcn allergy and anxiety disorder who presented to ED for the 4th time this month with back abscess for the last 2 weeks. Patient seen by ED physician on 08/17/17 and was discharged after I-n-D and wound packing on oral antibiotics, clindamycin which MRSA turned out to be resistant to Clindamycin. Patient came back for worsening abscess. -Sepsis from Cellulilits of the back with Abscess on the right at T12 level s/p i-n-d ER prior visit (08/17/17) poa: Gen. Surgery consulted, wound care, iv abx -CKD 3, now with ARF vasomotor nephropathy: consult Nephrology -AOCD: repeat cbc in am -DM type 2 with uncontrolled hyperglycemia: ssi, ada diet -Intractable nausea: add iv Reglan Renal function worsen, hold discharge. Consulted Nephrology today. You have to go back to prior ED on 08/17 visit to get the procedure not and wound culture results on 08/17/17 growing MRSA, continue iv Vancomycin, adjust dose for the renal failure Disposition: DC-01 TO HOME OR SELFCARE Time spent for discharge: 35 minutes Core Measure Documentation - Palliative Care Palliative Care/ Comfort Measures: Not Applicable - Core Measures Any of the following diagnoses?: none - VTE Discharge Requirements Deep Vein Thrombosis/Pulmonary Embolism Present on Admission: No Has pt received <5 days of overlap therapy or INR<2.0: No Anticoagulant overlap therapy prescribed at discharge: No Contraindication No Overlap Therapy order at DC: Not Indicated Exam - Physical Exam Narrative exam: GEN: WDWN, NAD, Awake, Alert, Orientated x 3 HEENT: NCAT, EOMI, PERRL, OP Clear NECK: supple, no adenopathy, no thyromegaly, no JVD CVS/HEART: RRR, normal S1S2, pulses present bilaterally CHEST/LUNGS: CTA B, Symmetrical chest expansion, good air entry bilaterally GI/Abdomen: soft, NTND, good bowel sounds, no guarding or rebound /Bladder: no suprapubic tenderness, no CVA or paraspinal tenderness EXT/Skin: right mid back abscess dsg c/d/i MSK: FROM x 4 Neuro: CN 2-12 grossly intact, no new focal deficits Psych: calm - Constitutional Vitals: Temp Pulse Resp BP Pulse Ox 98.8 F 106 H 18 128/79 96 08/24/17 23:07 08/24/17 23:07 08/25/17 05:03 08/24/17 23:07 08/24/17 23:07 Plan Activity: other Diet: renal Follow up with: PRIMARY CAREMD [Primary Care Provider] - 3-5 Days HO MAZARIEGOS MD [Staff Physician] - 7 Days Prescriptions: Acetaminophen [Acetaminophen TAB] 650 mg PO Q4H PRN #30 tablet PRN Reason: Pain MILD(1-3)/Fever >100.5/GARRIDO amLODIPine [Norvasc] 10 mg PO QDAY #30 tablet HYDROcodone/APAP 5-325 [[place] 5-325 mg TAB] 1 each PO Q6HR PRN #10 tablet PRN Reason: Pain, Moderate (4-6) Linezolid [Zyvox] 600 mg PO BID #28 tablet
[2017-08-25] MEDS ORDERED: VANCOMYCIN/NS 1 GM/250 ML 1 GM/250 ML BAG IV ONE (22:00)
== END 2017-08-25 17:39 | disposition home health service (06) | DRG 871 ==
LOC: ED 14:59 → 3A 17:48
PROVIDERS: ADMIT Internal Medicine; ATTEND Internal Medicine
DX: A41.9 Sepsis, unspecified organism (principal); N17.0 Acute kidney failure with tubular necrosis; N18.4 Chronic kidney disease, stage 4 (severe); L03.312 Cellulitis of back [any part except buttock and flank]; I12.9 Hypertensive chronic kidney disease with stage 1 through stage 4 chronic kidney disease, or unspecified chronic kidney disease; E11.22 Type 2 diabetes mellitus with diabetic chronic kidney disease; F41.9 Anxiety disorder, unspecified; D63.8 Anemia in other chronic diseases classified elsewhere; E11.40 Type 2 diabetes mellitus with diabetic neuropathy, unspecified; E11.65 Type 2 diabetes mellitus with hyperglycemia; E87.6 Hypokalemia; Z90.49 Acquired absence of other specified parts of digestive tract; Z90.721 Acquired absence of ovaries, unilateral; Z79.4 Long term (current) use of insulin; Z88.0 Allergy status to penicillin; Z79.899 Other long term (current) drug therapy
CPT/HCPCS: 36415; 74176; 80048; 80053; 80202; 82140; 82728; 82962; 83036; 83540; 83735; 84100; 85007; 85025; 85027; 86850; 86900; 86901; 87040; 93005; 93010; 96365; 96375; 99285; J0360; J1170; J1200; J1815; J2270; J2405; J2765; J3370; J7030; J7040; Q0162